=== PATIENT | female | born 2000 | race Caucasian/White ===

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

== ENCOUNTER 2023-10-03 19:57 | Emergency (ER) | payer OTHER, SELFPAY ==
--- NOTE | ~2023-10-03 | CT_ITS ---
EXAMINATION: CT head/brain wo IV con CLINICAL INFORMATION: Reason for Exam headache COMPARISON: None. TECHNIQUE: Contiguous axial imaging was performed from the skull base to vertex without intravenous contrast. Sagittal and coronal reformatted images were obtained. This CT examination was performed using dose optimization techniques as appropriate, variously including the following: * Automated exposure control * Adjustment of mA and/or kV according to patient size (this includes techniques or standardized protocols for targeted exams where dose is matched to indication/reason for exam; i.e. extremities or head) Use of iterative reconstruction technique DLP: 621.49 mGy-cm FINDINGS: No acute osseous or soft tissue abnormality. The mastoid air cells and visualized portions of the paranasal sinuses are well aerated. There is no evidence of acute intracranial hemorrhage or territorial infarction. No abnormal mass effect or midline shift is seen. Wiseman to white matter differentiation is well preserved. No extra-axial fluid collections are identified. No hydrocephalus. No significant volume loss. There is no abnormal attenuation within the brain parenchyma. CT/CT head/brain wo IV con IMPRESSION: No acute intracranial abnormality including hemorrhage, mass effect, hydrocephalus, or acute territorial edematous infarction.
--- NOTE | 2023-10-03 20:03 | ED_ITS ---
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 Patient reports over the past 5 days she has been having intermittent nosebleeds, it started while on vacation she stated an air B and B with very dry atmosphere, cold air conditioning, she does not remember picking her nose. Nosebleeds typically last a few minutes and subsided but today lasted longer which prompted her to come into the emergency department. Denies head trauma. No known bleeding disorders no history of miscarriages. No fevers, chills, chest pain, shortness of breath, nausea, vomiting, abdominal pain, headache, vision changes, dizziness or weakness. Related Data Allergies Allergy/AdvReac Type Severity Reaction Status Date / Time gluten [GLUTEN] Allergy Unknown UNKNOWN Unverified 11/22/19 17:53 morphine Allergy Unknown Hives Verified 10/03/23 20:13 sulfamethoxazole Allergy Unknown Hives Unverified 10/03/23 20:13 [From BACTRIM] trimethoprim [From BACTRIM] Allergy Unknown Hives Unverified 10/03/23 20:13 Review of Systems 2 Review of Systems: Yes all other systems are reviewed and are negative [facility] Past Medical History Attestation statement: The following information was validated with the patient. Source: old records reviewed and nursing notes reviewed Social History Social History Advance Directives: No Advance Directives Information Provided: No Physical Exam ED Vital Signs: Vital Signs - 24 hr 10/03/23 20:10 10/03/23 20:12 10/03/23 23:03 Temperature 98.1 F 98.1 F 97.9 F Pulse Rate 97 97 94 Respiratory Rate 17 18 16 Blood Pressure 113/74 113/68 104/50 L Pulse Oximetry 97 96 98 Oxygen Delivery Method Room Air Room Air Room Air BMI result Body Mass Index 41.2 vss Appearance: Alert.? Oriented X3.? No acute distress.? Head: Normocephalic, atraumatic, no step-offs or deformities + old left sided facial droop. Able to wrikle forehead. Fully closese b/l eyes w/ blinking ( all old) Eyes/nose: Pupils equal, round and reactive to light.?Dried blood to left nares no active bleeding Neck: Normal inspection.? Neck supple.? CVS: Normal heart rate and rhythm.? Pulses normal.? Respiratory: No respiratory distress.? Breath sounds normal.? Abdomen: Soft and nontender.? Skin: Skin warm and dry.? Normal skin color.? Normal skin turgor.? Extremities: No lower extremity edema.? No calf ttp. 5/5 strength to bilateral upper and lower extremities Back: No midline tenderness, no C-spine tenderness, full range of motion, no CVA tenderness bilaterally Neuro: Oriented X 3.? No motor deficit.? No sensory deficit. CN 2-12 intact Course Reevaluation(s) Reevaluation #1: CBC with slight leukocytosis no left shift, this is likely nonspecific unlikely from infection. Chemistry no acute findings needing intervention. Coags unremarkable. As long as patient's nosebleed does not start up again, patient to be discharged home will give her follow-up for ears Nose and Throat. Time: 20:40 Reevaluation #2: Educated patient on diagnosis and treatment plan, answered all question, patient verbalizes understanding. At this time patient will be discharged home, advised to return with new or worsening symptoms. Educated on worrisome signs and symptoms and when to return. At this time I feel comfortable discharge home. Time: 20:40 Reevaluation #3: Patient reported a diffuse headache during her stay felt different NIHSS -0 patient has left facial droop from bells however head ct ordered to air on side of caution --> normal head CT Time: 23:17 Medications Administered Discontinued Medications Generic Name Dose Route Start Last Admin Trade Name Freq PRN Reason Stop Dose Admin Acetaminophen 650 mg 10/03/23 21:41 10/03/23 21:46 Acetaminophen 325 Mg Tablet PO 10/03/23 21:42 650 mg ONCE ONE Administration Oxymetazoline HCl 2 spray 10/03/23 20:02 10/03/23 20:33 Oxymetazoline Hcl 0.05 % Nasal 15 Ml [place] NOSTRIL-B 10/03/23 20:03 2 spray ONCE ONE Administration Medical Decision Making Medical Decision Making MDM Narrative: 2002 23 yo f presents w/ nose bleed ongoing for the past hour PE - Normocephalic, atraumatic, no step-offs or deformities + old left sided facial droop. Able to wrikle forehead. Fully closese b/l eyes w/ blinking ( all old) . Dried blood to left nares no active bleeding NIHSS-0 Hx and pe concerning for nose bleed likely from mechanical trauma or weather changes. No hx of bleeding disorder. Low suspicions for acute blood loss anemia. Left-sided facial droop from old Conrad's palsy it has been present since 2021. I do not suspect acute stroke or posterior stroke. Plan- labs , Afrin Differential Diagnosis Differential Diagnoses: The differential diagnosis associated with the presentation includes Hx and pe concerning for nose bleed likely from mechanical trauma or weather changes. No hx of bleeding disorder. Low suspicions for acute blood loss anemia. Left-sided facial droop from old Conrad's palsy it has been present since 2021. I do not suspect acute stroke or posterior stroke. Admission/Observation Consideration of admission/observation: Escalation of care including admission/observation considered possible Lab Data [facility] Lab Attestation statement: I reviewed the patient's lab results. 10/03/23 20:14 10/03/23 20:14 Labs: Lab Results 10/03/23 Range/Units 20:14 WBC 12.9 H (4.8-10.8) X10*3/uL RBC 4.94 (4.20-5.50) X10*6/uL Hgb 11.7 L (12.0-16.0) g/dl Hct 37.0 (37.0-47.0) % MCV 74.9 L (80.0-98.0) fL MCH 23.7 L (27.0-33.0) pg MCHC 31.6 (31.0-35.0) g/dl RDW 16.8 H (11.0-16.0) % Plt Count 396 (160-400) X10*3/uL MPV 8.8 L (9.4-12.3) fL Immature Gran % (Auto) 0.5 H (0.0-0.4) % Neut % (Auto) 51.6 (45-73) % Lymph % (Auto) 39.0 (20-40) % [place] % (Auto) 6.0 (2-11) % Eos % (Auto) 2.6 (0-4) % Baso % (Auto) 0.3 (0-2) % Lymph # (Auto) 5.0 H (1.2-4.9) X10*3/uL [place] # (Auto) 0.8 (0.1-1.2) X10*3/uL Eos # (Auto) 0.3 (0.0-0.4) X10*3/uL Baso # (Auto) 0.0 (0.0-0.2) X10*3/uL Abs Immat Gran (auto) 0.07 H (0.00-0.03) X10*3/uL Absolute Neuts (auto) 6.7 (2.0-8.3) x10*3/uL Absolute Nucleated RBC 0.000 (0.0-0.012) X10*3/uL Nucleated RBC % (auto) 0.0 (0.0-0.2) /100WBC Smear Tech's Comments VERIFIED PT 11.4 (11.1-13.3) SEC INR 0.9 (0.9-1.1) Sodium 140 (135-145) mmol/L Potassium 4.2 (3.3-5.1) mmol/L Chloride 107 (96-108) mmol/L Carbon Dioxide 27 (22-29) mmol/L Anion Gap 10 L (12-20) BUN 16 (9-16) mg/dL Creatinine 0.85 (0.5-1.4) mg/dL Estim Creat Clear Calc 111.8 Estimated GFR > 60 Random Glucose 171 H (60-115) mg/dL Calcium 9.6 (8.4-10.2) mg/dL Total Bilirubin 0.2 (0.0-1.0) mg/dL AST 10 (5-31) U/L ALT 17 (0-31) U/L Alkaline Phosphatase 114 (39-117) U/L Total Protein 7.3 (6.5-8.0) g/dL Albumin 3.9 (3.5-5.0) g/dL Tests considered The following testing was considered but not selected: NIHSS-0 Chronic Conditions Patient?s care impacted by: Other (DM, hypothyroidism, obesity, ) Critical Care Time Critical Care Time Critical Care Time: No Discharge Plan Discharge Clinical Impression: Bleeding nose Patient Disposition: Home, Self-Care Instructions: Nosebleed (ED) Additional Instructions: Take your medications as prescribed. If you were prescribed antibiotics today, it is important that you take your medication to their entirety, do not skip any doses, do not finish them early. Follow-up with your primary care provider this week. Return to the emergency department with new or worsening symptoms. Such as fevers, chills, chest pain, shortness of breath, nausea, vomiting, dizziness, headache, vision changes, lethargy In case of emergency call 911 Use Afrin as indicated. Return if your nosebleed starts up again and you can not control it within 5 minutes. Referrals: Ernesto Anthony [Physician] - 2 days Physician,Roni Silvestre [Physician] - 2 days Stand Alone Forms: Work/School Release Interventions: ED Discharge Assessment Last Done: 10/03/23 23:03 Discharge Date/Time: 10/03/23 23:04 Print Language: Frisian
[2023-10-03 20:04] VITALS: BP 126/72; PULSE 110; O2SAT 98
[2023-10-03 20:10] VITALS: BP 113/74; PULSE 97; RESP 17; TEMP 36.7; O2SAT 97
[2023-10-03 20:12] VITALS: BP 113/68; PULSE 97; RESP 18; TEMP 36.7; O2SAT 96; BMI 41.2
[2023-10-03 20:21] LABS: Basophils Percent Auto 0.3 % (0-2); Eosinophils Absolute Auto 0.3 X10*3/uL (0.0-0.4); Eosinophils Percent Auto 2.6 % (0-4); Hemoglobin 11.7 g/dl (12.0-16.0); Imm Gran Abs Auto 0.07 X10*3/uL (0.00-0.03); Imm Gran Pct Auto 0.5 % (0.0-0.4); MANUAL DIFF FLAG SCAN; Mean Corpuscular HGB Conc 31.6 g/dl (31.0-35.0); Mean Corpuscular Hemoglobin 23.7 pg (27.0-33.0); Mean Corpuscular Volume 74.9 fL (80.0-98.0); Mean Platelet Volume 8.8 fL (9.4-12.3); Monocytes Absolute Auto 0.8 X10*3/uL (0.1-1.2); Neutrophils Absolute Auto 6.7 x10*3/uL (2.0-8.3); Neutrophils Percent Auto 51.6 % (45-73); Platelet Count 396 X10*3/uL (160-400); Red Blood Count 4.94 X10*6/uL (4.20-5.50); Red Cell Distribution Width 16.8 % (11.0-16.0); SCAN SMEAR FLAG 1; White Blood Count 12.9 X10*3/uL (4.8-10.8)
[2023-10-03 20:30] LABS: INTERNATIONAL NORM RATIO 0.9 (0.9-1.1); Prothrombin Time 11.4 SEC (11.1-13.3)
[2023-10-03] MEDS: Oxymetazoline HCl 0.05 % Nasal 15 ML SPRAY 2 SPRAY NOSTRIL-B (20:33)
[2023-10-03 20:37] LABS: Alanine Aminotransferase 17 U/L (0-31); Albumin Level 3.9 g/dL (3.5-5.0); Alkaline Phosphatase 114 U/L (39-117); Anion Gap 10 (12-20); Aspartate Amino Transferase 10 U/L (5-31); Bilirubin Total 0.2 mg/dL (0.0-1.0); Blood Urea Nitrogen 16 mg/dL (9-16); Calcium 9.6 mg/dL (8.4-10.2); Carbon Dioxide 27 mmol/L (22-29); Chloride 107 mmol/L (96-108); Creatinine Clr Calc Pharmacy 111.8; Estimated Glomerular Filt Rate > 60; Glucose Random 171 mg/dL (60-115); Potassium 4.2 mmol/L (3.3-5.1); Sodium 140 mmol/L (135-145); Total Protein 7.3 g/dL (6.5-8.0)
[2023-10-03 21:07] LABS: SLIDE REVIEW VERIFIED
[2023-10-03] MEDS: Acetaminophen 325 MG TABLET 650 MG PO (21:46)
[2023-10-03 23:03] VITALS: BP 104/50; PULSE 94; RESP 16; TEMP 36.6; O2SAT 98
== END 2023-10-03 23:04 | disposition home or self-care (01) ==
PROVIDERS: Physician Assistant; Emergency Provider Emergency Medicine; PCP Internal Medicine
DX: R04.0 Epistaxis (principal); R51.9 Headache, unspecified; E10.9 Type 1 diabetes mellitus without complications; Z79.899 Other long term (current) drug therapy
CPT/HCPCS: 36415; 70450; 80053; 85025; 85610; 99284

== ENCOUNTER 2024-05-08 16:13 | Emergency (ER) | payer OTHER, SELFPAY ==
[2024-05-08 16:32] VITALS: BP 119/92; PULSE 115; RESP 18; TEMP 36.9; O2SAT 99; BMI 37.9
--- NOTE | 2024-05-08 16:32 | ED_ITS ---
HPI - General Adult General Chief complaint: General Medical Stated complaint: rt ear hearing loss and dizziness Related Data Allergies Allergy/AdvReac Type Severity Reaction Status Date / Time gluten [GLUTEN] Allergy Unknown UNKNOWN Verified 05/08/24 16:33 morphine Allergy Unknown Hives Verified 05/08/24 16:33 sulfamethoxazole Allergy Unknown Hives Verified 05/08/24 16:33 [From BACTRIM] trimethoprim [From BACTRIM] Allergy Unknown Hives Verified 05/08/24 16:33 [facility] Social History Social History Advance Directives: No Advance Directives Information Provided: No Physical Exam ED Vital Signs: BMI result Body Mass Index 37.9 Course Course Course Narrative: This is an RME: Additional HPI, ROS, PE not included below will be deferred to primary provider. RME assessment and note performed by: Huma Rodrigues PA-C This is a [age]-female who presents to the ER with complaint of right ear decreased hearing, dizziness. Reports she has had dizziness x 2 months - had ENT appt was told that there is something unusual in regards to her right ear and hearing therefore an MRI was performed last week unsure of results. Reports CP now. She is well-appearing under no acute distress. Plan: Labs, EKG Reevaluation(s) Reevaluation #1: Patient left without completing treatment. Medical Decision Making Lab Data 05/08/24 16:58 05/08/24 16:58 Labs: Lab Results 05/08/24 Range/Units 16:58 WBC 15.1 H (4.8-10.8) X10*3/uL RBC 5.36 (4.20-5.50) X10*6/uL Hgb 12.6 (12.0-16.0) g/dl Hct 40.1 (37.0-47.0) % MCV 74.8 L (80.0-98.0) fL MCH 23.5 L (27.0-33.0) pg MCHC 31.4 (31.0-35.0) g/dl RDW 16.9 H (11.0-16.0) % Plt Count 482 H (160-400) X10*3/uL MPV 8.8 L (9.4-12.3) fL Immature Gran % (Auto) 0.5 H (0.0-0.4) % Neut % (Auto) 60.1 (45-73) % Lymph % (Auto) 33.3 (20-40) % [place] % (Auto) 4.5 (2-11) % Eos % (Auto) 1.3 (0-4) % Baso % (Auto) 0.3 (0-2) % Lymph # (Auto) 5.0 H (1.2-4.9) X10*3/uL [place] # (Auto) 0.7 (0.1-1.2) X10*3/uL Eos # (Auto) 0.2 (0.0-0.4) X10*3/uL Baso # (Auto) 0.0 (0.0-0.2) X10*3/uL Abs Immat Gran (auto) 0.07 H (0.00-0.03) X10*3/uL Absolute Neuts (auto) 9.1 H (2.0-8.3) x10*3/uL Absolute Nucleated RBC 0.000 (0.0-0.012) X10*3/uL Nucleated RBC % (auto) 0.0 (0.0-0.2) /100WBC Smear Tech's Comments VERIFIED Sodium 141 (135-145) mmol/L Potassium 3.9 (3.3-5.1) mmol/L Chloride 107 (96-108) mmol/L Carbon Dioxide 27 (22-29) mmol/L Anion Gap 11 L (12-20) BUN 13 (9-16) mg/dL Creatinine 0.75 (0.5-1.4) mg/dL Estim Creat Clear Calc 135.4 Estimated GFR > 60 Random Glucose 118 H (60-115) mg/dL Calcium 10.2 D (8.4-10.2) mg/dL Magnesium 2.0 (1.6-2.6) mg/dL Total Bilirubin 0.4 (0.0-1.0) mg/dL Direct Bilirubin 0.1 (0.0-0.5) mg/dL AST 15 (5-31) U/L ALT 22 (0-31) U/L Alkaline Phosphatase 135 H (39-117) U/L Troponin I High Sens < 2.7 (<3.5-17.0) ng/L Total Protein 8.5 H (6.5-8.0) g/dL Albumin 4.1 (3.5-5.0) g/dL Beta HCG, Quant < 2 mIU/mL Influenza Type A (PCR) NEGATIVE (Negative) Influenza Type B (PCR) NEGATIVE (Negative) RSV RNA Qual (PCR) NEGATIVE (Negative) SARS-CoV-2 RNA (RT-PCR) NEGATIVE (Negative) Discharge Plan Discharge Clinical Impression: Dizziness Patient Disposition: Left W/O Completing Treatment Interventions: LWBS Worksheet Last Done: 05/09/24 01:19 Discharge Date/Time: 05/09/24 02:07
--- NOTE | 2024-05-08 16:36 | ECG_ITS ---
Test Reason : dizziness Blood Pressure : */* mmHG Vent. Rate : 109 BPM Atrial Rate : 109 BPM P-R Int : 132 ms QRS Dur : 74 ms QT Int : 292 ms P-R-T Axes : 35 26 21 degrees QTcB Int : 393 ms Sinus tachycardia Otherwise normal ECG No previous ECGs available Referred By: Huma Rodrigues Electronically Signed By: KIM YANCEY MD
[2024-05-08 17:09] LABS: Basophils Percent Auto 0.3 % (0-2); Eosinophils Absolute Auto 0.2 X10*3/uL (0.0-0.4); Eosinophils Percent Auto 1.3 % (0-4); Hematocrit 40.1 % (37.0-47.0); Hemoglobin 12.6 g/dl (12.0-16.0); Imm Gran Abs Auto 0.07 X10*3/uL (0.00-0.03); Imm Gran Pct Auto 0.5 % (0.0-0.4); Lymphocytes Percent Auto 33.3 % (20-40); MANUAL DIFF FLAG SCAN; Mean Corpuscular HGB Conc 31.4 g/dl (31.0-35.0); Mean Corpuscular Hemoglobin 23.5 pg (27.0-33.0); Mean Corpuscular Volume 74.8 fL (80.0-98.0); Mean Platelet Volume 8.8 fL (9.4-12.3); Monocytes Absolute Auto 0.7 X10*3/uL (0.1-1.2); Monocytes Percent Auto 4.5 % (2-11); Neutrophils Absolute Auto 9.1 x10*3/uL (2.0-8.3); Neutrophils Percent Auto 60.1 % (45-73); Platelet Count 482 X10*3/uL (160-400); Red Blood Count 5.36 X10*6/uL (4.20-5.50); Red Cell Distribution Width 16.9 % (11.0-16.0); SCAN SMEAR FLAG 1; White Blood Count 15.1 X10*3/uL (4.8-10.8)
[2024-05-08 17:24] LABS: Troponin-I High Sensitivity < 2.7 ng/L (<3.5-17.0)
[2024-05-08 17:32] LABS: Alanine Aminotransferase 22 U/L (0-31); Albumin Level 4.1 g/dL (3.5-5.0); Anion Gap 11 (12-20); Aspartate Amino Transferase 15 U/L (5-31); Bilirubin Direct 0.1 mg/dL (0.0-0.5); Bilirubin Total 0.4 mg/dL (0.0-1.0); Blood Urea Nitrogen 13 mg/dL (9-16); Calcium 10.2 mg/dL (8.4-10.2); Carbon Dioxide 27 mmol/L (22-29); Chloride 107 mmol/L (96-108); Creatinine Clr Calc Pharmacy 135.4; Estimated Glomerular Filt Rate > 60; Glucose Random 118 mg/dL (60-115); HCG Quantitative < 2 mIU/mL; Potassium 3.9 mmol/L (3.3-5.1); SLIDE REVIEW VERIFIED; Sodium 141 mmol/L (135-145); Total Protein 8.5 g/dL (6.5-8.0)
[2024-05-08 17:43] LABS: Alkaline Phosphatase 135 U/L (39-117); Influenza A PCR NEGATIVE (Negative); Influenza B PCR NEGATIVE (Negative); Resp Syncy Virus RNA Qual PCR NEGATIVE (Negative); SARS COV2 PCR INHOUSE NEGATIVE (Negative)
--- OUTSIDE RECORDS SUMMARY | 2024-05-09 02:03 | XMS_ITS | Encounter Summary ---
Author Organization [facility] Address [address] [place] [address] Care Team Providers Care Steam Pipe Fitter Name Role Phone Julianne Tsang MD Primary Care Provider UnavailDenisse Elmore MD Primary Care Provider Unavailab Chantelle Fuentes MD Primary Care Provider Unavaila Palma Ruiz MD Primary Care Provider Chantelle Marin MD Primary Care Provider Unavaila Betty Gutierrez DO Primary Care Provider Ibrahima Woo MD Primary Care Provider [phone] Naima Bearden MD Primary Care Prov ider [facility] Endocrine And Diabetes Unavailab le Unavailable Encounter Details Date Type Department Care Team Description 08/10/2016 Finishing Powder Press Operator Report Medical Records [address] [place] [address] Rina Villagomez MD Social History Tobacco Use Types Packs/Day Years Used Date Smoking Tobacco: Never Smokeless Tobacco: Never Alcohol Use Standard Drinks/Week Comments Not Asked 0 (1 standard drink = 0.6 oz pur e alcohol) Sex Assigned at Date Recorded Not on file Job Start Date Occupation Industry Not on file Not on file Not on file documented as of this encounter Plan of Treatment Not on file documented as of this encounter Visit Diagnoses Not on filedocumented in this encounter Care Teams Steam Pipe Fitter Relationship Specialty Start Date End Date Julianne Tsang MD PCP - General 01 09/25/17 Denisse Ga MD PCP - General Pediatrics 09/26/17 11/18/19 Chantelle Ayala MD PCP - General Pediatrics 11/19/19 01/04/21 Palma Zamudio MD PCP - General Internal Medicine 01/05/21 01/12/21 Chantelle Ayala MD PCP - General Pediatrics 01/13/21 03/22/21 Betty Alejandro DO PCP - General Pediatrics 03/23/21 08/20/21 Ibrahima Hill MD [address] [place] [id number] PCP - General Pediatrics 08/21/21 10/20/21 Naima Bearden MD [address] [place] [id number] PCP - General Internal Medicine 10/21/21 [facility] Endocrine And Entry Level Automotive Technician Pediatric Endocrinology 05/04/22 documented as of this encounter
--- OUTSIDE RECORDS SUMMARY | 2024-05-09 02:04 | XMS_ITS | Encounter Summary ---
Author Organization [facility] Address [address] [facility] [place] [facility] [place] [address] Care Team Providers Care Hospice Patient Care Secretary Name Role Phone Chantelle Ayala MD Primary Care Provider UnavailPalma Perez MD Primary Care Provider Chantelle Marin MD Primary Care Provider Unavaila Betty Gutierrez DO Primary Care Provider UnaIbrahima Thompson MD Primary Care Provider [phone] Naima Bearden MD Primary Care Prov ider [facility] Endocrine And Diabetes Unavailab le Unavailable Encounter Details Date Type Department Care Team Description 01/24/2020 Repairer Report Medical Records [address] [place] [address] Zane Story Social History Tobacco Use Types Packs/Day Years Used Date Smoking Tobacco: Never Smokeless Tobacco: Never Alcohol Use Standard Drinks/Week Comments Not Asked 0 (1 standard drink = 0.6 oz pur e alcohol) Sex Assigned at Date Recorded Not on file Job Start Date Occupation Industry Not on file Not on file Not on file COVID-19 Exposure Response Date Recorded In the last month, have you been in contact with someone who was confirmed or suspected to have Coronavirus / COVID-19? No / Unsure 01/22/2020 12:56 PM EST documented as of this encounter Plan of Treatment Not on file documented as of this encounter Visit Diagnoses Not on filedocumented in this encounter Care Teams Hospice Patient Care Secretary Relationship Specialty Start Date End Date Chantelle Ayala MD PCP - General Pediatrics 11/19/19 01/04/21 Palma Zamudio MD PCP - General Internal Medicine 01/05/21 01/12/21 Chantelle Ayala MD PCP - General Pediatrics 01/13/21 03/22/21 Betty Alejandro DO PCP - General Pediatrics 03/23/21 08/20/21 Ibrahima Hill MD [address] [place] [id number] PCP - General Pediatrics 08/21/21 10/20/21 Naima Bearden MD [address] [place] [id number] PCP - General Internal Medicine 10/21/21 [facility] Endocrine And Special Education Director Pediatric Endocrinology 05/04/22 documented as of this encounter
--- OUTSIDE RECORDS SUMMARY | 2024-05-09 02:04 | XMS_ITS | Encounter Summary ---
Author Organization [facility] Address [address] [facility] [place] [address] Care Team Providers Care Parcel Post Carrier Name Role Phone Denisse Ga MD Primary Care Provider UnavailChantelle Bautista MD Primary Care Provider UnavailPalma Perez MD Primary Care Provider Chantelle Marin MD Primary Care Provider Unavaila Betty Gutierrez DO Primary Care Provider Ibrahima oWo MD Primary Care Provider Naima Bearden MD Primary Care Prov ider [facility] Endocrine And Diabetes Unavailab le Unavailable Encounter Details Date Type Department Care Team Description 10/12/2017 Tubing Machine Tender Report Medical Records [address] [place] [address] Rina Villagomez MD Social History Tobacco Use [...] on filedocumented in this encounter Care Teams Parcel Post Carrier Relationship Specialty Start Date End Date Denisse Ga MD PCP - General Pediatrics 09/26/17 11/18/19 Chantelle Ayala MD PCP - General Pediatrics 11/19/19 01/04/21 Palma Zamudio MD PCP - General Internal Medicine 01/05/21 01/12/21 Chantelle Ayala MD PCP - General Pediatrics 01/13/21 03/22/21 Betty Alejandro DO PCP - General Pediatrics 03/23/21 08/20/21 Ibrahima Hill MD [address] [place] [id number] PCP - General Pediatrics 08/21/21 10/20/21 Naima Bearden MD [address] [place] [id number] PCP - General Internal Medicine 10/21/21 [facility] Endocrine And Spray Painter Helper Pediatric Endocrinology 05/04/22 documented as of this encounter
--- OUTSIDE RECORDS SUMMARY | 2024-05-09 02:04 | XMS_ITS | Encounter Summary ---
Author Organization [facility] Address [address] [facility] [place] [address] Care Team Providers Care Western Tack Assembly Line Worker Name Role Phone Denisse Ga MD Primary Care Provider UnavailChantelle Bautista MD Primary Care Provider UnavailPalma Perez MD Primary Care Provider Chantelle Marin MD Primary Care Provider Unavaila Betty Gutierrez DO Primary Care Provider Ibrahima Woo MD Primary Care Provider [phone] Naima Bearden MD Primary Care Prov ider [facility] Endocrine And Diabetes Unavailab le Unavailable Encounter Details Date Type Department Care Team Description 12/20/2017 Medical Insurance Coding Specialist Report Medical Records [address] [place] [address] Ceasar Singh MD Social History Tobacco Use Types Packs/Day [...] on filedocumented in this encounter Care Teams Western Tack Assembly Line Worker Relationship Specialty Start Date End Date Denisse Ga MD PCP - General Pediatrics 09/26/17 11/18/19 Chantelle Ayala MD PCP - General Pediatrics 11/19/19 01/04/21 Palma Zamudio MD PCP - General Internal Medicine 01/05/21 01/12/21 Chantelle Ayala MD PCP - General Pediatrics 01/13/21 03/22/21 Betty Alejandro DO PCP - General Pediatrics 03/23/21 08/20/21 Ibrahima Hill MD [address] [place] [id number] PCP - General Pediatrics 08/21/21 10/20/21 Naima Bearden MD [address] [place] [id number] PCP - General Internal Medicine 10/21/21 [facility] Endocrine And Boss Dyer Pediatric Endocrinology 05/04/22 documented as of this encounter
--- OUTSIDE RECORDS SUMMARY | 2024-05-09 02:04 | XMS_ITS | Encounter Summary ---
Author Organization [facility] Address [address] [place] [address] Care Team Providers Care Novelty Candy Maker Name Role Phone Julianne Tsang MD Primary Care Provider UnavailDenisse Elmore MD Primary Care Provider UnavailChantelle Bautista MD Primary Care Provider Unavaila Palma Ruiz MD Primary Care Provider Chantelle Mrain MD Primary Care Provider Unavaila Betty Gutierrez DO Primary Care Provider Ibrahima Woo MD Primary Care Provider [phone] Naima Bearden MD Primary Care Prov ider [facility] Endocrine And Diabetes Unavailab le Unavailable Encounter Details Date Type Department Care Team Description 12/07/2013 Superintendent Recreation Report Medical Records [address] [place] [address] Francy Harris Social History Tobacco Use Types Packs/Day Years [...] on filedocumented in this encounter Care Teams Novelty Candy Maker Relationship Specialty Start Date End Date Julianne Tsang MD PCP - General 01 09/25/17 Denisse Ga MD PCP - General Pediatrics 09/26/17 11/18/19 Chantelle Ayala MD PCP - General Pediatrics 11/19/19 01/04/21 Palma Zamudio MD PCP - General Internal Medicine 01/05/21 01/12/21 Chantelle Ayala MD PCP - General Pediatrics 01/13/21 03/22/21 Betty Alejandro DO PCP - General Pediatrics 03/23/21 08/20/21 Ibrahima Hill MD [address] [place] [id number] PCP - General Pediatrics 08/21/21 10/20/21 Naima Bearden MD [address] [place] [id number] PCP - General Internal Medicine 10/21/21 [facility] Endocrine And Clothing Trades Workers Pediatric Endocrinology 05/04/22 documented as of this encounter
--- OUTSIDE RECORDS SUMMARY | 2024-05-09 02:04 | XMS_ITS | Encounter Summary ---
Author Organization [facility] Address [address] [place] [address] Care Team Providers Care Filing Or Registry Clerk Name Role Phone Julianne Tsang MD Primary Care Provider UnavailDenisse Elmore MD Primary Care Provider Unavailab Chantelle Fuentes MD Primary Care Provider Unavaila Palma Ruiz MD Primary Care Provider Chantelle Marin MD Primary Care Provider Unavaila Betty Gutierrez DO Primary Care Provider Ibrahima Woo MD Primary Care Provider [phone] Naima Bearden MD Primary Care Prov ider [facility] Endocrine And Diabetes Unavailab le Unavailable Encounter Details Date Type Department Care Team Description 02/26/2016 Permanent Waver Report Medical Records [address] [place] [id number] Pushpa Byrd DO Social History Tobacco Use Types Packs/Day Years [...] on filedocumented in this encounter Care Teams Filing Or Registry Clerk Relationship Specialty Start Date End Date Julianne Tsang MD PCP - General 01 09/25/17 Denisse Ga MD PCP - General Pediatrics 09/26/17 11/18/19 Chantelle Ayala MD PCP - General Pediatrics 11/19/19 01/04/21 Palma Zamudio MD PCP - General Internal Medicine 01/05/21 01/12/21 Chantelle Ayala MD PCP - General Pediatrics 01/13/21 03/22/21 Betty Alejandro DO PCP - General Pediatrics 03/23/21 08/20/21 Ibrahima Hill MD [address] [place] [phone] PCP - General Pediatrics 08/21/21 10/20/21 Naima Bearden MD [address] [place] [phone] PCP - General Internal Medicine 10/21/21 [facility] Endocrine And Executive Coach Pediatric Endocrinology 05/04/22 documented as of this encounter
--- OUTSIDE RECORDS SUMMARY | 2024-05-09 02:04 | XMS_ITS | Encounter Summary ---
Author Organization [facility] Address [address] [place] [address] Care Team Providers Care Food And Beverage Outlets Manager Name Role Phone Julianne Tsang MD Primary Care Provider UnavailDenisse Elmore MD Primary Care Provider UnavailChantelle Bautista MD Primary Care Provider Unavaila Palma Ruiz MD Primary Care Provider Chantelle Marin MD Primary Care Provider Unavaila Betty Gutierrez DO Primary Care Provider Ibrahima Woo MD Primary Care Provider [phone] Naima Bearden MD Primary Care Prov ider [facility] Endocrine And Diabetes Unavailab le Unavailable Encounter Details Date Type Department Care Team Description 04/03/2013 Push Bench Operator Helper Report Medical Records [address] [place] [address] [facility] Social History Tobacco Use Types Packs/Day Years [...] on filedocumented in this encounter Care Teams Food And Beverage Outlets Manager Relationship Specialty Start Date End Date Julianne Tsang MD PCP - General 01 09/25/17 Denisse Ga MD PCP - General Pediatrics 09/26/17 11/18/19 Chantelle Ayala MD PCP - General Pediatrics 11/19/19 01/04/21 Palma Zamudio MD PCP - General Internal Medicine 01/05/21 01/12/21 Chantelle Ayala MD PCP - General Pediatrics 01/13/21 03/22/21 Betty Alejandro DO PCP - General Pediatrics 03/23/21 08/20/21 Ibrahima Hill MD [address] [place] [phone] PCP - General Pediatrics 08/21/21 10/20/21 Naima Bearden MD [address] [place] [id number] PCP - General Internal Medicine 10/21/21 [facility] Endocrine And Tacking Stitch Remover Pediatric Endocrinology 05/04/22 documented as of this encounter
--- OUTSIDE RECORDS SUMMARY | 2024-05-09 02:04 | XMS_ITS | Encounter Summary ---
Author Organization [facility] Address [address] [place] [address] Care Team Providers Care Filteration Operator Name Role Phone Denisse Ga MD Primary Care Provider UnavailChantelle Bautista MD Primary Care Provider UnavailPalma Perez MD Primary Care Provider Chantelle Marin MD Primary Care Provider Unavaila Betty Gutierrez DO Primary Care Provider Ibrahima Woo MD Primary Care Provider [phone] Naima Bearden MD Primary Care Prov ider [facility] Endocrine And Diabetes Unavailab le Unavailable Encounter Details Date Type Department Care Team Description 10/10/2018 Orders Only Pediatrics - [facility] [address] [place] [address] Dora Miller RNCPNP Screening for cardiovascular condition (Primary Dx); 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, macular edema presence unspecified, unspecified retinopathy severity (HCC) Social History Tobacco Use Types Packs/Day Years [...] documented as of this encounter Visit Diagnoses Diagnosis Screening for cardiovascular condition- Primary Screening for other and unspecified cardiovascular conditions 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, macular edema presence unspecified, unspecified retinopathy severity (HCC) documented in this encounter Care Teams Filteration Operator Relationship Specialty Start Date End Date Denisse Ga MD PCP - General Pediatrics 09/26/17 11/18/19 Chantelle Ayala MD PCP - General Pediatrics 11/19/19 01/04/21 Palma Zamudio MD PCP - General Internal Medicine 01/05/21 01/12/21 Chantelle Ayala MD PCP - General Pediatrics 01/13/21 03/22/21 Betty Alejandro DO PCP - General Pediatrics 03/23/21 08/20/21 Ibrahima Hill MD [address] [place] [id number] PCP - General Pediatrics 08/21/21 10/20/21 Naima Bearden MD [address] [place] [phone] PCP - General Internal Medicine 10/21/21 [facility] Endocrine And Corporate Travel Manager Pediatric Endocrinology 05/04/22 documented as of this encounter
--- OUTSIDE RECORDS SUMMARY | 2024-05-09 02:04 | XMS_ITS | Encounter Summary ---
Author Organization [facility] Address [address] [place] [address] Care Team Providers Care Molecular Genetic Pathologist Name Role Phone Julianne Tsang MD Primary Care Provider UnavailDenisse Elmore MD Primary Care Provider UnavailChantelle Bautista MD Primary Care Provider Unavaila Palma Ruiz MD Primary Care Provider Chantelle Marin MD Primary Care Provider Unavaila Betty Gutierrez DO Primary Care Provider Ibrahima Woo MD Primary Care Provider [phone] Naima Bearden MD Primary Care Prov ider [facility] Endocrine And Diabetes Unavailab le Unavailable Encounter Details Date Type Department Care Team Description 03/09/2012 Cfa Report Medical Records [address] [place] [id number] Carole Valverde Social History Tobacco Use Types Packs/Day Years [...] on filedocumented in this encounter Care Teams Molecular Genetic Pathologist Relationship Specialty Start Date End Date Julianne Tsang MD PCP - General 01 09/25/17 Denisse Ga MD PCP - General Pediatrics 09/26/17 11/18/19 Chantelle Ayala MD PCP - General Pediatrics 11/19/19 01/04/21 Palma Zamudio MD PCP - General Internal Medicine 01/05/21 01/12/21 Chantelle Ayala MD PCP - General Pediatrics 01/13/21 03/22/21 Betty Alejandro DO PCP - General Pediatrics 03/23/21 08/20/21 Ibrahima Hill MD [address] [place] [phone] PCP - General Pediatrics 08/21/21 10/20/21 Naima Bearden MD [address] [place] [phone] PCP - General Internal Medicine 10/21/21 [facility] Endocrine And Pick Pulling Machine Tender Pediatric Endocrinology 05/04/22 documented as of this encounter
--- OUTSIDE RECORDS SUMMARY | 2024-05-09 02:04 | XMS_ITS | Encounter Summary ---
Author Organization [facility] Address [address] [place] [address] Care Team Providers Care Automotive Generator Repairer Name Role Phone Ibrahima Hill MD Primary Care Provider [phone] Naima Bearden MD Primary Care Prov ider [facility] Endocrine And Diabetes Unavailab le Unavailable Encounter Details Date Type Department Care Team Description 10/09/2021 Hospital Medical Records [address] [place] [address] [address] Social History Tobacco Use Types Packs/Day Years Used Date Smoking Tobacco: Never Smokeless Tobacco: Never Alcohol Use Standard Drinks/Week Comments Never 0 (1 standard drink = 0.6 oz pur e alcohol) Education Answer Date Recorded What is the highest level of school you have completed or the highest degree you have received? 11th grade 11/02/2023 Sex Assigned at Date Recorded Not on file Job Start Date Occupation Industry Not on file Not on file Not on file documented as of this encounter Plan of Treatment Not on file documented as of this encounter Visit Diagnoses Not on filedocumented in this encounter Care Teams Automotive Generator Repairer Relationship Specialty Start Date End Date Ibrahima Hill MD [address] [place] [phone] PCP - General Pediatrics 08/21/21 10/20/21 Naima Bearden MD [address] [place] [phone] PCP - General Internal Medicine 10/21/21 [facility] Endocrine And Irrigation Equipment Mechanic Pediatric Endocrinology 05/04/22 documented as of this encounter
--- OUTSIDE RECORDS SUMMARY | 2024-05-09 02:04 | XMS_ITS | Encounter Summary ---
Author Organization [facility] Address [address] [place] [address] Care Team Providers Care Auto Design Detailer Name Role Phone Julianne Tsang MD Primary Care Provider UnavailDenisse Elmore MD Primary Care Provider Unavailab Chantelle Fuenets MD Primary Care Provider Unavaila Palma Ruiz MD Primary Care Provider Chantelle Marin MD Primary Care Provider Unavaila Betty Gutierrez DO Primary Care Provider Ibrahima Woo MD Primary Care Provider [phone] Naima Bearden MD Primary Care Prov ider [facility] Endocrine And Diabetes Unavailab le Unavailable Reason for Visit * Reason Onset Date Comments Form 06/23/2012 Encounter Details Date Type Department Care Team Description 06/23/2012 Telephone [facility] - [address] [address] Dora Miller RNCPNP Form Social History Tobacco Use Types Packs/Day Years Used Date Smoking Tobacco: Never Smokeless Tobacco: Never Alcohol Use Standard Drinks/Week Comments Not Asked 0 (1 standard drink = 0.6 oz pur e alcohol) Sex Assigned at Date Recorded Not on file Job Start Date Occupation Industry Not on file Not on file Not on file documented as of this encounter Miscellaneous Notes * Telephone Encounter - Thalia Bansal R.N. - 06/23/2012 2:57 PM EDT Form to providers desk * Telephone Encounter - Tatiana Delatorre - 06/23/2012 2:41 PM EDT Pediatric Form Request Type of form: Power Fingerprinting Date of last physical: 04/20/12 Does patient want: Fax to other office/MD at fax # documented in this encounter Plan of Treatment Not on file documented as of this encounter Visit Diagnoses Not on filedocumented in this encounter Care Teams Auto Design Detailer Relationship Specialty Start Date End Date Julianne Tsang MD PCP - General 01 09/25/17 Denisse Ga MD PCP - General Pediatrics 09/26/17 11/18/19 Chantelle Ayala MD PCP - General Pediatrics 11/19/19 01/04/21 Palma Zamudio MD PCP - General Internal Medicine 01/05/21 01/12/21 Chantelle Ayala MD PCP - General Pediatrics 01/13/21 03/22/21 Betty Alejandro DO PCP - General Pediatrics 03/23/21 08/20/21 Ibrahima Hill MD [address] [place] [phone] PCP - General Pediatrics 08/21/21 10/20/21 Naima Bearden MD [address] [place] [id number] PCP - General Internal Medicine 10/21/21 [facility] Endocrine And Social Services Specialist Pediatric Endocrinology 05/04/22 documented as of this encounter
--- OUTSIDE RECORDS SUMMARY | 2024-05-09 02:04 | XMS_ITS | Encounter Summary ---
Author Organization [facility] Address [address] [facility] [place] [address] Care Team Providers Care Feed Research Technician Name Role Phone Denisse Ga MD Primary Care Provider UnavailChantelle Bautista MD Primary Care Provider UnavailPalma Perez MD Primary Care Provider Chantelle Marin MD Primary Care Provider Unavaila Betty Gutierrez DO Primary Care Provider Ibrahima Woo MD Primary Care Provider [phone] Naima Bearden MD Primary Care Prov ider [facility] Endocrine And Diabetes Unavailab le Unavailable Encounter Details Date Type Department Care Team Description 11/02/2018 Smoking Pipe Repairer Report Medical Records [address] [place] [address] [facility] Social History Tobacco Use Types Packs/Day Years [...] on filedocumented in this encounter Care Teams Feed Research Technician Relationship Specialty Start Date End Date Denisse Ga MD PCP - General Pediatrics 09/26/17 11/18/19 Chantelle Ayala MD PCP - General Pediatrics 11/19/19 01/04/21 Palma Zamudio MD PCP - General Internal Medicine 01/05/21 01/12/21 Chantelle Ayala MD PCP - General Pediatrics 01/13/21 03/22/21 Betty Alejandro DO PCP - General Pediatrics 03/23/21 08/20/21 Ibrahima Hill MD [address] [place] [phone] PCP - General Pediatrics 08/21/21 10/20/21 Naima Bearden MD [address] [place] [phone] PCP - General Internal Medicine 10/21/21 [facility] Endocrine And Ornamental Rail Installer Pediatric Endocrinology 05/04/22 documented as of this encounter
--- OUTSIDE RECORDS SUMMARY | 2024-05-09 02:04 | XMS_ITS | Continuity of Care Document ---
Author Organization [place] - [facility], [facility] Address [address] [place] [address] Care Team Providers Care Signal Supervisor Name Role Phone OVI SANTIZO Primary Care Provider OVI SANTIZO Referring Provider Assessment Encounter Date Assessment Date Assessment LastModified by Organization Details LastModified Time 04/24/2024 04/24/2024 23 year old femvy chavez with history of migraine presents for evaluation of hearing fluctuation and discomfort in the left ear. Also has non-vertiginous dizziness at times. Left tympanic membrane is retracted. Reviewed pathophysiology of Eustachian tube dysfunction on diagram and patient/parent understands. Recommend trial of intranasal steroid spray; risks, rationale, and crossed-hand application technique reviewed and all questions were answered. We discussed that the discomfort in the left ear may represent referred pain from the temporomandibular joint. Recommend avoidance of gum chewing. Jaw Joint Program provided in written format. We reviewed that the fluctuating hearing and intermittent imbalance may be migraine-related. Recommend trial of migraine diet; provided today for patient to read at home along with some other educational material about migraine headache and migraine-associated dizziness. Audiometric testing demonstrates normal hearing bilaterally but with a 10-15 dB asymmetry from 250 Hz - 2,000 Hz. Differential diagnosis reviewed to include acoustic neuroma versus other retrocochlear pathology versus viral origin. Recommend MRI of the brain and IACs, as well as Lyme disease titers. Will call patient with results. Recommend repeat audiometric testing in 3-6 months, sooner with perceived change that does not promptly return to baseline. [email or web address] Not available 04/24/2024 16:14:24 Plan of Treatment Reminders Order Date Submit Date Provider Last Modified By Organization Details Last Modified Time Details Appointments Hearing Test 2024 03:00P M Hearing Test Not available Not available Not available Establish ed 15 2024 03:30P M KEVIN LARES PA-C Not available Not available Not available Lab borrelia burgdorfe ri IgG + IgM + total panel, IA, serum 2024 025 ZANONI [facility] (Centralized Electronic Ordering - All Locations), Patient Can Go To The Location Of Their Choice, [id number] 04/25/2024 11:16:51 Referral None recorded. Procedures None recorded. Surgeries None recorded. Imaging MRI, brain + internal auditory canal, w/wo contrast - MRI, BRAIN + INTERNAL AUDITORY CANAL, W/WO CONTRAST 2024 025 [facility] ([facility] [address] [place], [address], 05/03/2024 14:31:10 Medication Orders Flonase Allergy Relief 50 mcg/actua tion nasal spray,rashaun pension 2024 025 ZANONI [id number], [address] [facility], [place], [address], 04/24/2024 14:35:45 Patient TargetsNo targets recorded. Patient InstructionsNo instructions recorded. Reason for Referral None Reported. Results Created Date Observation Date Name Description Value Unit Range Abnormal Flag Note LastModifiedBy Organization Detail LastModifiedTime 04/24/19 25 audio gram No observ ation record ed. BARCODE Not Available 2024 15:18:28 05/03/19 25 04/30/2024 MRI, brain + inter nal audit ory canal , w/wo contr ast No observ ation record ed. [facility] [address] [place], [address], 05/03/2024 14:31:10 Result Notes None recorded. Problems Name Problem SNOMED Code Status Onset Date Resolution Date Notes Provider Name and Address Organization Details Recorded Time Abnormal auditory perception 90916135 Active 2024 Aretha cordero [place] - [facility] 02/18/202 5 14:03:44 Disorder of left Eustachian tube 0873274345441 109 Active 2024 TOMMIE BRUCE PA-C [address] [address], [place], [phone], 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 - [facility] 5 15:34:01 Problem Notes None recorded. Procedures Surgical History Date Name Laterality Status Provider Name and Address Organization Details Recorded Time 04/24/2024 Comp Audio with Tymps (57154 & 79370) completed Aretha Tiwari [place] - [facility] 04/24/2024 14:03:30 Imaging Results None recorded. Procedure Notes None recorded. Medical Equipment None Reported. Medications Name Sig Start Date Stop Date Status Note LastModified by Organization Details LastModified Time atorvastatin 40 mg tablet active Not Available Not Available Not Available atorvastatin 80 mg tablet active Not Available Not Available Not Available atorvastatin 20 mg tablet active Not Available Not Available Not Available ammonium lactate 12 % lotion APPLY TOPICALLY 2 TIMES A DAY FOR 28 DAYS. active Not Available Not Available No t Available cetirizine 10 mg tablet TAKE 1 TABLET BY MOUTH 1 TIME EACH DAY. active Not Available Not Available No t Available atorvastatin 10 mg tablet TAKE 1 TABLET BY MOUTH EVERY DAY active Not Available Not Available No t Available miconazole nitrate 2 % topical cream APPLY 1 APPLICATION TOPICALLY 2 (TWO) TIMES A DAY FOR 14 DAYS. TO RIGHT ELBOW CREASE active Not Available Not Available No t Available FreeStyle Lancets 28 gauge CHECK BLOOD SUGAR 3-4 TIMES DAILY. active Not Available Not Available No t Available levothyroxin e 75 mcg tablet active Not Available Not Available Not Available levothyroxin e 88 mcg tablet active Not Available Not Available Not Available insulin aspart U-100 100 unit/mL subcutaneous solution active Not Available Not Available Not Available levothyroxin e 125 mcg tablet TAKE 1 & 1/2 TABLETS BY MOUTH ONCE DAILY active Not Available Not Available N ot Available insulin lispro (U-100) 100 unit/mL subcutaneous solution SUBCUTANEOU S INFUSION - MANAGEMENT OF TYPE 1 DIABETES. MAX DAILY DOSE 150 UNITS active Not Available Not Available No t Available ibuprofen 600 mg tablet TAKE 1 TABLET BY MOUTH THREE TIMES A DAY FOR 7 DAYS active Not Available Not Available N ot Available ondansetron 4 mg disintegrati ng tablet TAKE 1 TABLET (ORAL) EVERY 12 HOURS (NAUSEA AND VOMITING) FOR 5 DAYS active Not Available Not Available N ot Available fluticasone propionate 50 mcg/actuatio n nasal spray,suspen david SPRAY 2 SPRAYS INTO EACH NOSTRIL IN THE MORNING active Not Available Not Available Not Available Ketostix strips USE TWICE DAILY IF GLUCOSE IS >300 OR DURING ILLNESS active Not Available Not Available No t Available Ventolin HFA 90 mcg/actuatio n aerosol inhaler INHALE 2 PUFFS INTO THE LUNGS EVERY 6 HOURS NEEDED FOR COUGH OR WHEEZING. active Not Available Not Available No t Available oxycodone 5 mg tablet TAKE 1 TABLET BY MOUTH EVERY 4 HOURS NEEDED active Not Available Not Available No t Available Vitamin D3 25 mcg (1,000 unit) capsule active Not Available Not Available Not Available clobetasol 0.05 % shampoo PLEASE SEE ATTACHED FOR DETAILED DIRECTIONS active Not Available Not Available N ot Available FreeStyle Lite Strips IDDM- USE TO CHECK BLOOD SUGAR 3-4X A DAY WHEN PUMP IS NOT WORKING. active Not Available Not Available No t Available cholecalcife rol (vitamin D3) 1,250 mcg (50,000 unit) capsule active Not Available Not Available Not Available Lantus Solostar U-100 Insulin 100 unit/mL (3 mL) subcutaneous pen TAKE UP TO 60 UNITS ONCE DAILY IN THE EVENT OF INSULIN PUMP FAILURE. E10.65. active Not Available Not Available No t Available diclofenac 1 % topical gel TAKE 2 GRAMS (TOPICAL) 4 TIMES PER DAY FOR 10 DAYS active Not Available Not Available No t Available BD Insulin Syringe Ultra-Fine 0.3 mL 31 gauge x 5/16 USE TO GIVE INSULIN 4 TO 5 TIMES PER DAY. active Not Available Not Available No t Available Dexcom G6 Sensor device USE FOR CONTINUOUS GLUCOSE MONITORING. CHANGE EVERY 10 DAYS. E10.65 active Not Available Not Available No t Available Dexcom G6 Transmitter device USE FOR CONTINUOUS GLUCOSE MONITORING. E10.65. 1 PER 3 MONTHS. active Not Available Not Available No t Available BD Caro 2nd Gen Pen Needle 32 gauge x 5/32 USE DIRECTED FOR IDDM TO ADMINISTER INSULIN UPTO X6/DAY active Not Available Not Available Not Available Baqsimi 3 mg/actuation nasal spray 3 MG NARIS, RIGHT ONCE,INSTR: USE FOR SIGNS OF SEVERE HYPOGLYCEMI A IN IDDM MAY REPEAT IN 15 MINUTES active Not Available Not Available No t Available insulin glargine-yfg n (U-100) 100 unit/mL (3 mL) subcutaneous pen INJECT UP TO 60 UNITS ONCE DAILY IN THE EVENT OF INSULIN PUMP FAILURE. E10.65. active Not Available Not Available No t Available Vitals None Recorded Social History None recorded. Functional Status None recorded. Mental Status None recorded. Family History Nothing Reported. Medical History No medical history recorded. Gynecological HistoryNo gynecological history recorded. Obstetrics History GPAL:G 0 P 0 0 0 0 Past Encounters Encounter ID Performer Location Encounter Start Date Encounter Closed Date Diagnosis/Indication Diagnosis SNOMED-CT Code Diagnosis ICD10 Code Diagnosis Note [id number] TOMMIE BRUCE PA-C [facility] [address] [address] 04/24/2024 13:24:47 04/24/2024 14:40:06 Abnormal auditory perception 87717116 H93.299 Audiologic al evaluation results:Ri ght ear:{{Norm al* Normal through 2 kHz Mild M oderate Mo derately-s evere Neyda re Profoun d}} {{hearing* hearing. sloping to a mild slopi ng to a moderate s loping to moderately severe slo ping to severe slo ping to profound f lat high frequency low frequency mid frequency cookie bite conrad curve}} {{with* se nsorineura l hearing loss with condu ctive hearing loss with mixed hearing loss with}} {{excellen t* good fa ir poor no measurable }} word recognitio n.Left ear:{{Norm al* Normal through 2 kHz Mild M oderate Mo derately-s evere Neyda re Profoun d}} {{hearing* hearing. 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 Health Concerns Section Related Observation LastModified by Organization Detai ls LastModified Time None Recorded Concern Status LastModified by Organization Details LastModified Time None Recorded Payers Encounter Date Sequence Insurance Name Policy Number Policy Paulino Covered Member ID Paulino Member ID Guarantor Name 04/24/2024 1 [email or web address] [place] Maxx Mina [id number] Maxx Mina Notes Date Note Type Note Provider Name and Address Organization Details Recorded Time 04/24/2024 text/html 23 year old female presents for evaluation of the ears and hearing. Sometimes things sound distant or muffled. She has to ask people to repeat themselves. This is a problem that comes and goes; seems to affect both ears. Today the hearing feels normal. She reports heartbeat in the ear when her head is on the pillow but not otherwise, and no other tinnitus. 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 Feels like the eardrum hurts on that side. She denies bruxism and jaw clenching. She does chew a lot of gum. There is no otorrhea. She also reports some imbalance without vertigo. Occurs when she is already standing up. Occurs a couple of times per day. Persists for a few seconds. There is no associated syncope, confusion, slurred speech, vision change, loss of visual field, headache, chest pain, heart palpitations, nor extremity or facial weakness or paralysis. Endorses history of migraine headaches, quite infrequent. Photosensitivity, nausea, unilateral headache that persists for days. Does not present same day/time as imbalance or hearing fluctuations. TOMMIE KETCHEN, PA-C [address] [address], [place], [address], [place] - [facility] 04/24/2024 16:14:36 OBGyn Episode No OBEpisode recorded.
--- OUTSIDE RECORDS SUMMARY | 2024-05-09 02:04 | XMS_ITS | Encounter Summary ---
Author Organization [facility] Address [address] [place] [address] Care Team Providers Care Professor Criminal Justice Name Role Phone Julianne Tsang MD Primary Care Provider UnavailDenisse Elmore MD Primary Care Provider UnavailChantelle Bautista MD Primary Care Provider Unavaila Palma Ruiz MD Primary Care Provider Chantelle Marin MD Primary Care Provider Unavaila Betty Gutierrez DO Primary Care Provider Ibrahima Woo MD Primary Care Provider [phone] Naima Bearden MD Primary Care Prov ider [facility] Endocrine And Diabetes Unavailab le Unavailable Encounter Details Date Type Department Care Team Description 01/31/2012 Software Release Engineer Report Medical Records [address] [place] [address] Bharat Galdamez Social History Tobacco Use Types Packs/Day Years [...] on filedocumented in this encounter Care Teams Professor Criminal Justice Relationship Specialty Start Date End Date Julianne Tsang MD PCP - General 01 09/25/17 Denisse Ga MD PCP - General Pediatrics 09/26/17 11/18/19 Chantelle Ayala MD PCP - General Pediatrics 11/19/19 01/04/21 Palma Zamudio MD PCP - General Internal Medicine 01/05/21 01/12/21 Chantelle Ayala MD PCP - General Pediatrics 01/13/21 03/22/21 Betty Alejandro DO PCP - General Pediatrics 03/23/21 08/20/21 Ibrahima Hill MD [address] [place] [address] PCP - General Pediatrics 08/21/21 10/20/21 Naima Bearden MD [address] [place] [address] PCP - General Internal Medicine 10/21/21 [facility] Endocrine And Interventional Nurse Pediatric Endocrinology 05/04/22 documented as of this encounter
--- OUTSIDE RECORDS SUMMARY | 2024-05-09 02:04 | XMS_ITS | Encounter Summary ---
Author Organization [facility] Address [address] [place] [address] Care Team Providers Care Drying Frame Operator Name Role Phone Julianne Tsang MD Primary Care Provider UnavailDenisse Elmore MD Primary Care Provider UnavailChantelle Bautista MD Primary Care Provider Unavaila Palma Ruiz MD Primary Care Provider Chantelle Marin MD Primary Care Provider Unavaila Betty Gutierrez DO Primary Care Provider Ibrahima Woo MD Primary Care Provider [phone] Naima Bearden MD Primary Care Prov ider [facility] Endocrine And Diabetes Unavailab le Unavailable Encounter Details Date Type Department Care Team Description 07/10/2013 Outbound Supervisor Report Medical Records [address] [place] [address] Francy Harris Social History Tobacco Use Types [...] on filedocumented in this encounter Care Teams Drying Frame Operator Relationship Specialty Start Date End Date Julianne Tsang MD PCP - General 01 09/25/17 Denisse Ga MD PCP - General Pediatrics 09/26/17 11/18/19 Chantelle Ayala MD PCP - General Pediatrics 11/19/19 01/04/21 Palma Zamudio MD PCP - General Internal Medicine 01/05/21 01/12/21 Chantelle Ayala MD PCP - General Pediatrics 01/13/21 03/22/21 Betty Alejandro DO PCP - General Pediatrics 03/23/21 08/20/21 Ibrahima Hill MD [address] [place] [address] PCP - General Pediatrics 08/21/21 10/20/21 Naima Bearden MD [address] [place] [address] PCP - General Internal Medicine 10/21/21 [facility] Endocrine And [place] Supervisor Pediatric Endocrinology 05/04/22 documented as of this encounter
--- OUTSIDE RECORDS SUMMARY | 2024-05-09 02:04 | XMS_ITS | Encounter Summary ---
Author Organization [facility] Address [address] [place] [address] Care Team Providers Care Treasury Representative Name Role Phone JuanBetty clarke Primary Care Provider Unav Ibrahima Plascencia MD Primary Care Provider [phone] Naima Bearden MD Primary Care Prov ider [facility] Endocrine And Diabetes Unavailab le Unavailable Reason for Visit * Reason Onset Date Comments Prior Authorization 06/08/2021 MRI rt wrist Encounter Details Date Type Department Care Team Description 06/08/2021 Telephone Adult Medicine [address] [address] Zelda Han MD [address] [place] [address] Prior Authorization (MRI rt wrist) Social History Tobacco Use Types Packs/Day Years [...] encounter Miscellaneous Notes * Telephone Encounter - Carmen Olvera - 06/08/2021 12:00 PM EDT You placed an internal order for MRI right wrist on 06/05/21. Pt had this done at [facility] on 04/13/21. If you want done again please place and new external order as pt cannot have done here per telephone encounters from 02/24 documented in this encounter Plan of Treatment Not on file documented as of this encounter Visit Diagnoses Not on filedocumented in this encounter Care Teams Treasury Representative Relationship Specialty Start Date End Date Betty Alejandro DO PCP - General Pediatrics 03/23/21 08/20/21 Ibrahima Hill MD [address] [place] [address] PCP - General Pediatrics 08/21/21 10/20/21 Naima Bearden MD [address] [place] [address] PCP - General Internal Medicine 10/21/21 [facility] Endocrine And Screw Machine Adjuster Automatic Pediatric Endocrinology 05/04/22 documented as of this encounter
--- OUTSIDE RECORDS SUMMARY | 2024-05-09 02:04 | XMS_ITS | Encounter Summary ---
Author Organization [facility] Address [address] [facility] [place] [address] Care Team Providers Care Technical Training Manager Name Role Phone Denisse Ga MD Primary Care Provider UnavailChantelle Bautista MD Primary Care Provider UnavailPalma Perez MD Primary Care Provider Chantelle Marin MD Primary Care Provider Unavaila Betty Gutierrez DO Primary Care Provider Ibrahima Woo MD Primary Care Provider [phone] Naima Bearden MD Primary Care Prov ider [facility] Endocrine And Diabetes Unavailab le Unavailable Encounter Details Date Type Department Care Team Description 01/12/2018 Community Midwife Report Medical Records [address] [place] [address] Rina Villagomez MD Social History Tobacco Use [...] on filedocumented in this encounter Care Teams Technical Training Manager Relationship Specialty Start Date End Date Denisse Ga MD PCP - General Pediatrics 09/26/17 11/18/19 Chantelle Ayala MD PCP - General Pediatrics 11/19/19 01/04/21 Palma Zamudio MD PCP - General Internal Medicine 01/05/21 01/12/21 Chantelle Ayala MD PCP - General Pediatrics 01/13/21 03/22/21 Betty Alejandro DO PCP - General Pediatrics 03/23/21 08/20/21 Ibrahima Hill MD [address] [place] [address] PCP - General Pediatrics 08/21/21 10/20/21 Naima Bearden MD [address] [place] [address] PCP - General Internal Medicine 10/21/21 [facility] Endocrine And Shipyard Painter Pediatric Endocrinology 05/04/22 documented as of this encounter
--- OUTSIDE RECORDS SUMMARY | 2024-05-09 02:04 | XMS_ITS | Encounter Summary ---
Author Organization [facility] Address [address] [place] [address] Care Team Providers Care Interior Design Project Manager Name Role Phone Julianne Tsang MD Primary Care Provider UnavailDenisse Elmore MD Primary Care Provider Unavailab Chantelle Fuentes MD Primary Care Provider Unavaila Palma Ruiz MD Primary Care Provider Chantelle Marin MD Primary Care Provider Unavaila Betty Gutierrez DO Primary Care Provider Ibrahima Woo MD Primary Care Provider [phone] Naima Bearden MD Primary Care Prov ider [facility] Endocrine And Diabetes Unavailab le Unavailable Reason for Visit * Reason Onset Date Comments Vomiting 02/11/2012 Encounter Details Date Type Department Care Team Description 02/11/2012 Telephone [facility] - [address] [address] Juilanne Tsang MD Vomiting Social History Tobacco Use Types Packs/Day Years [...] encounter Miscellaneous Notes * Telephone Encounter - NORAH Gardiner - 02/11/2012 12:47 PM EST please f/u progress after er * Telephone Encounter - Nakita Bolton - 02/11/2012 11:11 AM EST Dad called - requesting to speak to a nurse because he can't take patient to ER any time soon because he's waiting for a coding director. Per triage, patient was advised that [facility] ER is waiting for him to arrive, and he needs to take patient to ER right away, even if he has to take siblings with him. Dad agrees. * Telephone Encounter - Joseph Villa L.P.N. - 02/11/2012 10:33 AM EST Pt was seen in [facility] ER on 02/06 for v&d (sib had similar sx), dc with home care. 02/08 Pt was seen at [facility] ER for N&V, received IVF along with antiemetic to use at home. Pt is out of med & started vomiting early am, looks pale. HNV yet this am. I advised ER, Dad says he will go to [facility] now, he does not want to go to [facility] right now, wait was too long & chaotic. I called & spoke with Mariya in [facility] ER, gave an expect, wanted her to be aware that Pt is a Type1 diabetic FYI. * Telephone Encounter - Leatha Reyna - 02/11/2012 10:23 AM EST Dad calling back --now stating that child went to the er Tuesday night to Tuesday and they gave her some pills to put under her tongue that helps but they do not have anymore, * Telephone Encounter - Leatha Reyna - 02/11/2012 9:22 AM EST Signs/Symptoms: Vomiting,since Tuesday, child is a diabetic Duration of symptoms: na Temperature: Na Allergies: Bactrim 200-40 mg/5ml Any chronic illnesses: Patient Active Problem List Diagnoses Code ??? Unspecified visual loss 369.9 ??? Wheezing 786.07 ??? Obesity 278.00 ??? Type 1 diabetes mellitus 250.01 ??? Acute pharyngitis 462 Is the child taking any medications: Current Outpatient Prescriptions Medication Sig Dispense Refill ??? PROAIR HFA 108 (90 BASE) MCG/ACT AERS INHALE 2 PUFFS INTO THE LUNGS EVERY 4 HOURS NEEDED FORCOUGH OR WHEEZING. 1 Inhaler 0 ??? ibuprofen (ADVIL,MOTRIN) 400 MG tablet Take 1 Tab by mouth every 6 hours as needed for Pain. 60Tab 1 ??? ibuprofen (ADVIL,MOTRIN) 200 MG tablet Take 2 Tabs by mouth Once. 2 Tab 0 ??? Spacer/Aero-Holding Chambers (AEROCHAMBER MV) MISC 1 Container by Does not apply route daily. 1Each 0 ??? fluticasone (FLOVENT HFA) 110 MCG/ACT inhaler Inhale 2 Puffs into the lungs 2 times daily. Resume if return of cold symptoms, cough or wheeze. 1 Inhaler 5 ??? sodium fluoride (LURIDE) 2.2 (1 F) MG per chewable tablet Take 1 tablet by mouth daily. 30 tablet 5 ??? insulin glargine (LANTUS) 100 UNIT/ML injection Inject into the skin at bedtime. ??? insulin lispro (HUMALOG) 100 UNIT/ML injection Inject into the skin 4 times daily (before mealsand nightly). documented in this encounter Plan of Treatment Not on file documented as of this encounter Visit Diagnoses Not on filedocumented in this encounter Care Teams Interior Design Project Manager Relationship Specialty Start Date End Date [...] General Pediatrics 03/23/21 08/20/21 Ibrahima Hill MD [address] [place] [address] PCP - General Pediatrics 08/21/21 10/20/21 Naima Bearden MD [address] [place] [address] PCP - General Internal Medicine 10/21/21 [facility] Endocrine And Spar Finisher Pediatric Endocrinology 05/04/22 documented as of this encounter
--- OUTSIDE RECORDS SUMMARY | 2024-05-09 02:04 | XMS_ITS | Encounter Summary ---
Author Organization [facility] Address [address] [place] [address] Care Team Providers Care Snow Plow Operator Name Role Phone Julianne Tsang MD Primary Care Provider UnavailDenisse Elmore MD Primary Care Provider Unavailab Chantelle Fuentes MD Primary Care Provider Unavaila Palma Ruiz MD Primary Care Provider Chantelle Marin MD Primary Care Provider Unavaila Betty Gutierrez DO Primary Care Provider Ibrahima Woo MD Primary Care Provider [phone] Naima Bearden MD Primary Care Prov ider [facility] Endocrine And Diabetes Unavailab le Unavailable Encounter Details Date Type Department Care Team Description 05/05/2016 Coil Taper Report Medical Records [address] [place] [id number] Ceasar Singh MD Social History Tobacco Use [...] on filedocumented in this encounter Care Teams Snow Plow Operator Relationship Specialty Start Date End Date [...] General Pediatrics 03/23/21 08/20/21 Ibrahima Hill MD [address] [place] [address] PCP - General Pediatrics 08/21/21 10/20/21 Naima Bearden MD [address] [place] [address] PCP - General Internal Medicine 10/21/21 [facility] Endocrine And Optical Laboratory Mechanic Pediatric Endocrinology 05/04/22 documented as of this encounter
--- OUTSIDE RECORDS SUMMARY | 2024-05-09 02:04 | XMS_ITS | Encounter Summary ---
Author Organization [facility] Address [address] [place] [address] Care Team Providers Care Stamp Clerk Name Role Phone Julianne Tsang MD Primary Care Provider UnavailDenisse Elmore MD Primary Care Provider Unavailab Chantelle Fuentes MD Primary Care Provider Unavaila Palma Ruiz MD Primary Care Provider Chantelle Mairn MD Primary Care Provider Unavaila Betty Gutierrez DO Primary Care Provider Ibrahima Woo MD Primary Care Provider [phone] Naima Bearden MD Primary Care Prov ider [facility] Endocrine And Diabetes Unavailab le Unavailable Encounter Details Date Type Department Care Team Description 12/10/2011 Export Sales Manager Report Medical Records [address] [place] [address] Carole Valverde Social History Tobacco Use Types [...] on filedocumented in this encounter Care Teams Stamp Clerk Relationship Specialty Start Date End Date Julianne Tsang MD PCP - General 01 09/25/17 Denisse Ga MD PCP - General Pediatrics 09/26/17 11/18/19 Chantelle Ayala MD PCP - General Pediatrics 11/19/19 01/04/21 Palma Zamudio MD PCP - General Internal Medicine 01/05/21 01/12/21 Chantelle Ayala MD PCP - General Pediatrics 01/13/21 03/22/21 Betty Alejandro DO PCP - General Pediatrics 03/23/21 08/20/21 Irbahima Hill MD [address] [place] [address] PCP - General Pediatrics 08/21/21 10/20/21 Naima Bearden MD [address] [place] [address] PCP - General Internal Medicine 10/21/21 [facility] Endocrine And Diet Clerk Pediatric Endocrinology 05/04/22 documented as of this encounter
--- OUTSIDE RECORDS SUMMARY | 2024-05-09 02:04 | XMS_ITS | Encounter Summary ---
Author Organization [facility] Address [address] [place] [address] Care Team Providers Care Dock Builder Name Role Phone Ibrahima Hill MD Primary Care Provider [phone] Naima Bearden MD Primary Care Prov ider [facility] Endocrine And Diabetes Unavailab le Unavailable Encounter Details Date Type Department Care Team Description 10/06/2021 Structural Steel Shop Supervisor Report Medical Records [address] [place] [address] Huma Jordan Social History Tobacco Use Types Packs/Day Years [...] on filedocumented in this encounter Care Teams Dock Builder Relationship Specialty Start Date End Date Ibrahima Hill MD [address] [place] [address] PCP - General Pediatrics 08/21/21 10/20/21 Naima Bearden MD [address] [place] [address] PCP - General Internal Medicine 10/21/21 Group, [facility] Endocrine And Manager Creative Services Pediatric Endocrinology 05/04/22 documented as of this encounter
--- OUTSIDE RECORDS SUMMARY | 2024-05-09 02:04 | XMS_ITS | Encounter Summary ---
Author Organization [facility] Address [address] [place] [address] Care Team Providers Care Stereotype Caster Name Role Phone Julianne Tsang MD Primary Care Provider UnavailDenisse Elmore MD Primary Care Provider UnavailChantelle Bautista MD Primary Care Provider Unavaila Palma Ruiz MD Primary Care Provider Chantelle Marin MD Primary Care Provider Unavaila Betty Gutierrez DO Primary Care Provider Ibrahima Woo MD Primary Care Provider [phone] Naima Bearden MD Primary Care Prov ider [facility] Endocrine And Diabetes Unavailab le Unavailable Encounter Details Date Type Department Care Team Description 07/13/2012 Head Knitting Machine Fixer Report Medical Records [address] [place] [address] Abstract, Provider Social History Tobacco Use Types Packs/Day Years [...] on filedocumented in this encounter Care Teams Stereotype Caster Relationship Specialty Start Date End Date Julianne Tsang MD PCP - General 01 09/25/17 Denisse Ga MD PCP - General Pediatrics 09/26/17 11/18/19 Chantelle Ayala MD PCP - General Pediatrics 11/19/19 01/04/21 Palma Zamudio MD PCP - General Internal Medicine 01/05/21 01/12/21 Chantelle Ayala MD PCP - General Pediatrics 01/13/21 03/22/21 Betty Alejandro DO PCP - General Pediatrics 03/23/21 08/20/21 Ibrahima Hill MD [address] [place] [address] PCP - General Pediatrics 08/21/21 10/20/21 Naima Bearden MD [address] [place] [address] PCP - General Internal Medicine 10/21/21 [facility] Endocrine And Director Digital Marketing Pediatric Endocrinology 05/04/22 documented as of this encounter
--- OUTSIDE RECORDS SUMMARY | 2024-05-09 02:04 | XMS_ITS | Encounter Summary ---
Author Organization [facility] Address [address] [place] [address] Care Team Providers Care Organ Pipe Finisher Name Role Phone Julianne Tsang MD Primary Care Provider UnavailDenisse Elmore MD Primary Care Provider UnavailChantelle Bautista MD Primary Care Provider Unavaila Palma Ruiz MD Primary Care Provider Chantelle Marin MD Primary Care Provider Unavaila Betty Gutierrez DO Primary Care Provider Ibrahima Woo MD Primary Care Provider [phone] Naima Bearden MD Primary Care Prov ider [facility] Endocrine And Diabetes Unavailab le Unavailable Encounter Details Date Type Department Care Team Description 02/06/2012 Night Triage Doc Medical Records [address] [place] [address] Abstract, Provider Social History Tobacco Use Types [...] on filedocumented in this encounter Care Teams Organ Pipe Finisher Relationship Specialty Start Date End Date Julianne Tsang MD PCP - General 01 09/25/17 Denisse Ga MD PCP - General Pediatrics 09/26/17 11/18/19 Chantelle Ayala MD PCP - General Pediatrics 11/19/19 01/04/21 Palma Zamudio MD PCP - General Internal Medicine 01/05/21 01/12/21 Chantelle Ayala MD PCP - General Pediatrics 01/13/21 03/22/21 Betty Alejandro DO PCP - General Pediatrics 03/23/21 08/20/21 Ibrahima Hill MD [address] [place] [address] PCP - General Pediatrics 08/21/21 10/20/21 Naima Bearden MD [address] [place] [address] PCP - General Internal Medicine 10/21/21 [facility] Endocrine And Upholstery Covers Inspector Pediatric Endocrinology 05/04/22 documented as of this encounter
--- OUTSIDE RECORDS SUMMARY | 2024-05-09 02:04 | XMS_ITS | Encounter Summary ---
Author Organization [facility] Address [address] [place] [address] Care Team Providers Care Automatic Hemmer Name Role Phone Julianne Tsang MD Primary Care Provider UnavailDenisse Elmore MD Primary Care Provider UnavailChantelle Bautista MD Primary Care Provider Unavaila Palma Ruiz MD Primary Care Provider Chantelle Marin MD Primary Care Provider Unavaila Betty Gutierrez DO Primary Care Provider Ibrahima Woo MD Primary Care Provider Naima Bearden MD Primary Care Prov ider [facility] Endocrine And Diabetes Unavailab le Unavailable Encounter Details Date Type Department Care Team Description 12/27/2012 Business Analytics Director Report Medical Records [address] [place] [address] Francy Harris Social History Tobacco Use Types [...] on filedocumented in this encounter Care Teams Automatic Hemmer Relationship Specialty Start Date End Date Julianne Tsang MD PCP - General 01 09/25/17 Denisse Ga MD PCP - General Pediatrics 09/26/17 11/18/19 Chantelle Ayala MD PCP - General Pediatrics 11/19/19 01/04/21 Palma Zamudio MD PCP - General Internal Medicine 01/05/21 01/12/21 Chantelle Ayala MD PCP - General Pediatrics 01/13/21 03/22/21 Betty Alejandro DO PCP - General Pediatrics 03/23/21 08/20/21 Ibrahima Hill MD [address] [place] [address] PCP - General Pediatrics 08/21/21 10/20/21 Naima Bearden MD [address] [place] [address] PCP - General Internal Medicine 10/21/21 [facility] Endocrine And Radiology Physician Assistant Pediatric Endocrinology 05/04/22 documented as of this encounter
--- OUTSIDE RECORDS SUMMARY | 2024-05-09 02:04 | XMS_ITS | Encounter Summary ---
Author Organization [facility] Address [address] [place] [address] Care Team Providers Care Byproducts Supervisor Name Role Phone Julianne Tsang MD Primary Care Provider UnavailDenisse Elmore MD Primary Care Provider UnavailChantelle Bautista MD Primary Care Provider Unavaila Palma Ruiz MD Primary Care Provider Chantelle Marin MD Primary Care Provider Unavaila Betty Gutierrez DO Primary Care Provider Ibrahima Woo MD Primary Care Provider [phone] Naima Bearden MD Primary Care Prov ider [facility] Endocrine And Diabetes Unavailab le Unavailable Encounter Details Date Type Department Care Team Description 11/13/2013 Glass Belt Sander Report Medical Records [address] [place] [address] [facility] Children's Social History Tobacco Use Types [...] on filedocumented in this encounter Care Teams Byproducts Supervisor Relationship Specialty Start Date End Date Julianne Tsang MD PCP - General 01 09/25/17 Denisse Ga MD PCP - General Pediatrics 09/26/17 11/18/19 Chantelle Ayala MD PCP - General Pediatrics 11/19/19 01/04/21 Palma Zamudio MD PCP - General Internal Medicine 01/05/21 01/12/21 Chantelle Ayala MD PCP - General Pediatrics 01/13/21 03/22/21 Betty Alejandro DO PCP - General Pediatrics 03/23/21 08/20/21 Ibrahima Hill MD [address] [place] [address] PCP - General Pediatrics 08/21/21 10/20/21 Naima Bearden MD [address] [place] [address] PCP - General Internal Medicine 10/21/21 [facility] Endocrine And Optical Engineering Technician Pediatric Endocrinology 05/04/22 documented as of this encounter
--- OUTSIDE RECORDS SUMMARY | 2024-05-09 02:04 | XMS_ITS | Encounter Summary ---
Author Organization [facility] Address [address] [place] [address] Care Team Providers Care Ornithology Teacher Name Role Phone Chantelle Ayala MD Primary Care Provider Unavaila Betty Gutierrez DO Primary Care Provider Unav Ibrahima Plascencia MD Primary Care Provider [phone] Naima Bearden MD Primary Care Prov ider [facility] Endocrine And Diabetes Unavailab le Unavailable Encounter Details Date Type Department Care Team Description 03/02/2021 Patient Registration Specialist Report Medical Records [address] [place] [address] Rina Villagomez MD Social History Tobacco Use [...] have Coronavirus / COVID-19? No / Unsure 02/10/2021 11:16 AM EST documented as of this encounter Plan of Treatment Not on file documented as of this encounter Visit Diagnoses Not on filedocumented in this encounter Care Teams Ornithology Teacher Relationship Specialty Start Date End Date Chantelle Ayala MD PCP - General Pediatrics 01/13/21 03/22/21 Betty Alejandro DO PCP - General Pediatrics 03/23/21 08/20/21 Ibrahima Hill MD [address] [place] [address] PCP - General Pediatrics 08/21/21 10/20/21 Naima Bearden MD [address] [place] [address] PCP - General Internal Medicine 10/21/21 [facility] Endocrine And Receptionist Doctor'S Office Pediatric Endocrinology 05/04/22 documented as of this encounter
--- OUTSIDE RECORDS SUMMARY | 2024-05-09 02:04 | XMS_ITS | Encounter Summary ---
Author Organization [facility] Address [address] [place] [address] Care Team Providers Care Hot Mill Operator Name Role Phone Julianne Tsang MD Primary Care Provider UnavailDenisse Elmore MD Primary Care Provider UnavailChantelle Bautista MD Primary Care Provider Unavaila Palma Ruiz MD Primary Care Provider Chantelle Marin MD Primary Care Provider Unavaila Betty Gutierrez DO Primary Care Provider Ibrahima Woo MD Primary Care Provider [phone] Naima Bearden MD Primary Care Prov ider [facility] Endocrine And Diabetes Unavailab le Unavailable Encounter Details Date Type Department Care Team Description 10/18/2013 Prep Manager Report Medical Records [address] [place] [address] Francy Harris Social History Tobacco Use Types [...] on filedocumented in this encounter Care Teams Hot Mill Operator Relationship Specialty Start Date End Date [...] General Pediatrics 03/23/21 08/20/21 Ibrahima Hill MD [address] [place] [address] PCP - General Pediatrics 08/21/21 10/20/21 Naima Bearden MD [address] [place] [address] PCP - General Internal Medicine 10/21/21 [facility] Endocrine And Cabin Equipment Supervisor Pediatric Endocrinology 05/04/22 documented as of this encounter
--- OUTSIDE RECORDS SUMMARY | 2024-05-09 02:04 | XMS_ITS | Encounter Summary ---
Author Organization [facility] Address [address] [place] [address] Care Team Providers Care Sintering Plant Supervisor Name Role Phone Julianne Tsang MD Primary Care Provider UnavailDenisse Elmore MD Primary Care Provider UnavailChantelle Bautista MD Primary Care Provider Unavaila Palma Ruiz MD Primary Care Provider Chantelle Marin MD Primary Care Provider Unavaila Betty Gutierrez DO Primary Care Provider Ibrahima Woo MD Primary Care Provider [phone] Naima Bearden MD Primary Care Prov ider [facility] Endocrine And Diabetes Unavailab le Unavailable Encounter Details Date Type Department Care Team Description 09/13/2013 Earth Sciences Professor Report Medical Records [address] [place] [address] [facility] Children's Social History Tobacco Use Types Packs/Day [...] on filedocumented in this encounter Care Teams Sintering Plant Supervisor Relationship Specialty Start Date End Date [...] Pediatrics 03/23/21 08/20/21 Ibrahima Hill MD [address] [place] [address] PCP - General Pediatrics 08/21/21 10/20/21 Naima Bearden MD [address] [place] [address] PCP - General Internal Medicine 10/21/21 [facility] Endocrine And Cooler Deliverer Pediatric Endocrinology 05/04/22 documented as of this encounter
--- OUTSIDE RECORDS SUMMARY | 2024-05-09 02:05 | XMS_ITS | Encounter Summary ---
Author Organization [facility] Address [address] [facility] [place] [facility] [place] [address] Care Team Providers Care Physicist Cryogenics Name Role Phone Denisse Ga MD Primary Care Provider UnavailChantelle Bautista MD Primary Care Provider UnavailPalma Perez MD Primary Care Provider Chantelle Marin MD Primary Care Provider Unavaila Betty Gutierrez DO Primary Care Provider Ibrahima Woo MD Primary Care Provider [phone] Naima Bearden MD Primary Care Prov ider [facility] Endocrine And Diabetes Unavailab le Unavailable Encounter Details Date Type Department Care Team Description 01/01/2019 Medical Sales Report Medical Records [address] [place] [address] Bharat Galdamez Social History Tobacco Use Types [...] on filedocumented in this encounter Care Teams Physicist Cryogenics Relationship Specialty Start Date End Date Denisse Ga MD PCP - General Pediatrics 09/26/17 11/18/19 Chantelle Ayala MD PCP - General Pediatrics 11/19/19 01/04/21 Palma Zamudio MD PCP - General Internal Medicine 01/05/21 01/12/21 Chantelle Ayala MD PCP - General Pediatrics 01/13/21 03/22/21 Betty Alejandro DO PCP - General Pediatrics 03/23/21 08/20/21 Ibrahima Hill MD [address] [place] [address] PCP - General Pediatrics 08/21/21 10/20/21 Naima Bearden MD [address] [place] [address] PCP - General Internal Medicine 10/21/21 [facility] Endocrine And Road Commissioner Pediatric Endocrinology 05/04/22 documented as of this encounter
--- OUTSIDE RECORDS SUMMARY | 2024-05-09 02:05 | XMS_ITS | Encounter Summary ---
Author Organization [facility] Address [address] [place] [address] Care Team Providers Care Probate Judge Name Role Phone Naima Bearden MD Primary Care Prov ider [facility] Endocrine And Diabetes Unavailab le Unavailable Reason for Visit * Reason Onset Date Comments Provider Call Back 08/23/2023 Encounter Details Date Type Department Care Team Description 08/23/2023 Telephone Adult Medicine [address] [address] Naima Bearden MD [address] [place] [address] Provider Call Back Social History Tobacco Use Types Packs/Day Years [...] encounter Miscellaneous Notes * Telephone Encounter - Leatha Elkins L.P.N. - 08/23/2023 3:38 PM EDT needs to bring the form in and have it sent to forms * Telephone Encounter - Roxanna John - 08/23/2023 3:22 PM EDT Patient is calling to speak with Naima Leahy. Was told she needed to have form filled out by PCP for DTA. Patient aware PCP returning tomorrow. documented in this encounter Plan of Treatment Not on file documented as of this encounter Visit Diagnoses Not on filedocumented in this encounter Care Teams Probate Judge Relationship Specialty Start Date End Date Naima Bearden MD [address] [place] [address] PCP - General Internal Medicine 10/21/21 Group, [facility] Endocrine And Contour Band Saw Operator Vertical Pediatric Endocrinology 05/04/22 documented as of this encounter
--- OUTSIDE RECORDS SUMMARY | 2024-05-09 02:05 | XMS_ITS | Encounter Summary ---
Author Organization [facility] Address [address] [place] [address] Care Team Providers Care Vehicle Delivery Worker Name Role Phone Julianne sTang MD Primary Care Provider UnavailDenisse Elmore MD Primary Care Provider UnavailChantelle Bautista MD Primary Care Provider Unavaila Palma Ruiz MD Primary Care Provider Chantelle Marin MD Primary Care Provider Unavaila Betty Gutierrez DO Primary Care Provider Ibrahima Woo MD Primary Care Provider [phone] Naima Bearden MD Primary Care Prov ider [facility] Endocrine And Diabetes Unavailab le Unavailable Encounter Details Date Type Department Care Team Description 01/14/2015 Subsystems Engineer Report Medical Records [address] [place] [address] Francy Harris Social History Tobacco Use Types [...] on filedocumented in this encounter Care Teams Vehicle Delivery Worker Relationship Specialty Start Date End Date Julianne [...] Pediatrics 03/23/21 08/20/21 Ibrahima Hill MD [address] [place] [address] PCP - General Pediatrics 08/21/21 10/20/21 Naima Bearden MD [address] [place] [address] PCP - General Internal Medicine 10/21/21 [facility] Endocrine And Counseling Psychologist Pediatric Endocrinology 05/04/22 documented as of this encounter
--- OUTSIDE RECORDS SUMMARY | 2024-05-09 02:05 | XMS_ITS | Encounter Summary ---
Author Organization [facility] Address [address] [facility] [place] [facility] [place] [address] Care Team Providers Care Denture Processor Name Role Phone Betty Alejandro DO Primary Care Provider Unav ailable Ibrahima Hill MD Primary Care Provider [phone] Naima Bearden MD Primary Care Prov ider [facility] Endocrine And Diabetes Unavailab le Unavailable Encounter Details Date Type Department Care Team Description 06/05/2021 Field Service Supervisor Report Medical Records [address] [place] [address] Abstract, Provider Social History Tobacco Use Types [...] on filedocumented in this encounter Care Teams Denture Processor Relationship Specialty Start Date End Date Betty Alejandro DO PCP - General Pediatrics 03/23/21 08/20/21 Ibrahima Hill MD [address] [place] [address] PCP - General Pediatrics 08/21/21 10/20/21 Naima Bearden MD [address] [place] [address] PCP - General Internal Medicine 10/21/21 [facility] Endocrine And Traffic Control Supervisor Pediatric Endocrinology 05/04/22 documented as of this encounter
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
--- OUTSIDE RECORDS SUMMARY | 2024-05-09 02:05 | XMS_ITS | Encounter Summary ---
Author Organization [facility] Address [address] [place] [address] Care Team Providers Care Chief Innovation Officer Name Role Phone Denisse Ga MD Primary Care Provider UnavailChantelle Bautista MD Primary Care Provider UnavailPalma Perez MD Primary Care Provider Chantelle Marin MD Primary Care Provider Unavaila Betty Gutierrez DO Primary Care Provider Ibrahima Woo MD Primary Care Provider Naima Bearden MD Primary Care Prov ider [facility] Endocrine And Diabetes Unavailab le Unavailable Encounter Details Date Type Department Care Team Description 05/29/2018 Clinical Psychologist Report Medical Records [address] [place] [address] Bev Bojorquez MD Social History Tobacco Use Types Packs/Day [...] on filedocumented in this encounter Care Teams Chief Innovation Officer Relationship Specialty Start Date End Date Denisse Ga MD PCP - General Pediatrics 09/26/17 11/18/19 Chantelle Ayala MD PCP - General Pediatrics 11/19/19 01/04/21 Palma Zamudio MD PCP - General Internal Medicine 01/05/21 01/12/21 Chantelle Ayala MD PCP - General Pediatrics 01/13/21 03/22/21 Betty Alejandro DO PCP - General Pediatrics 03/23/21 08/20/21 Ibrahima Hill MD [address] [place] [address] PCP - General Pediatrics 08/21/21 10/20/21 Naima Bearden MD [address] [place] [address] PCP - General Internal Medicine 10/21/21 [facility] Endocrine And Sergeant Missile Crewman Pediatric Endocrinology 05/04/22 documented as of this encounter
--- OUTSIDE RECORDS SUMMARY | 2024-05-09 02:05 | XMS_ITS | Encounter Summary ---
Author Organization [facility] Address [address] [place] [address] Care Team Providers Care Mining Manager Name Role Phone Denisse Ga MD Primary Care Provider UnavailChantelle Bautista MD Primary Care Provider UnavailPalma Perez MD Primary Care Provider Chantelle Marin MD Primary Care Provider Unavaila Betty Gutierrez DO Primary Care Provider Ibrahima Woo MD Primary Care Provider [phone] Naima Bearden MD Primary Care Prov ider [facility] Endocrine And Diabetes Unavailab le Unavailable Encounter Details Date Type Department Care Team Description 05/02/2019 Critical Care Registered Nurse Report Medical Records [address] [place] [address] Jeevan Amin MD Social History Tobacco Use Types Packs/Day [...] on filedocumented in this encounter Care Teams Mining Manager Relationship Specialty Start Date End Date Denisse Ga MD PCP - General Pediatrics 09/26/17 11/18/19 Chantelle Ayala MD PCP - General Pediatrics 11/19/19 01/04/21 Palma Zamudio MD PCP - General Internal Medicine 01/05/21 01/12/21 Chantelle Ayala MD PCP - General Pediatrics 01/13/21 03/22/21 Betty Alejandro DO PCP - General Pediatrics 03/23/21 08/20/21 Ibrahima Hill MD [address] [place] [address] PCP - General Pediatrics 08/21/21 10/20/21 Naima Bearden MD [address] [place] [address] PCP - General Internal Medicine 10/21/21 [facility] Endocrine And Paper Bag Inspector Pediatric Endocrinology 05/04/22 documented as of this encounter
--- OUTSIDE RECORDS SUMMARY | 2024-05-09 02:05 | XMS_ITS | Encounter Summary ---
Author Organization [facility] Address [address] [place] [address] Care Team Providers Care Exchange Clerk Name Role Phone Denisse Ga MD Primary Care Provider UnavailChantelle Bautista MD Primary Care Provider UnavailPalma Perez MD Primary Care Provider Chantelle Marin MD Primary Care Provider Unavaila Betty Gutierrez DO Primary Care Provider Ibrahima Woo MD Primary Care Provider [phone] Naima Bearden MD Primary Care Prov ider [facility] Endocrine And Diabetes Unavailab le Unavailable Encounter Details Date Type Department Care Team Description 09/27/2019 Hole Puncher Strap Report Medical Records [address] [place] [address] Social History Tobacco Use Types Packs/Day Years [...] on filedocumented in this encounter Care Teams Exchange Clerk Relationship Specialty Start Date End Date Denisse Ga MD PCP - General Pediatrics 09/26/17 11/18/19 Chantelle Ayala MD PCP - General Pediatrics 11/19/19 01/04/21 Palma Zamudio MD PCP - General Internal Medicine 01/05/21 01/12/21 Chantelle Ayala MD PCP - General Pediatrics 01/13/21 03/22/21 Betty Alejandro DO PCP - General Pediatrics 03/23/21 08/20/21 Ibrahima Hill MD [address] [place] [address] PCP - General Pediatrics 08/21/21 10/20/21 Naima Bearden MD [address] [place] [address] PCP - General Internal Medicine 10/21/21 [facility] Endocrine And Inspector Coated Fabrics Pediatric Endocrinology 05/04/22 documented as of this encounter
--- OUTSIDE RECORDS SUMMARY | 2024-05-09 02:05 | XMS_ITS | Encounter Summary ---
Author Organization [facility] Address [address] [place] [address] Care Team Providers Care Rubber Attacher Name Role Phone Chantelle Ayala MD Primary Care Provider UnavailPalma Perez MD Primary Care Provider Chantelle Marin MD Primary Care Provider Unavaila Betty Gutierrez DO Primary Care Provider UnaIbrahima Thompson MD Primary Care Provider [phone] Naima Bearden MD Primary Care Prov ider [facility] Endocrine And Diabetes Unavailab le Unavailable Encounter Details Date Type Department Care Team Description 08/07/2020 Student Success Coach Report Medical Records [address] [place] [address] Ceasar Singh MD Social History Tobacco Use [...] have Coronavirus / COVID-19? No / Unsure 07/10/2020 3:11 PM EDT documented as of this encounter Plan of Treatment Not on file documented as of this encounter Visit Diagnoses Not on filedocumented in this encounter Care Teams Rubber Attacher Relationship Specialty Start Date End Date Chantelle Ayala MD PCP - General Pediatrics 11/19/19 01/04/21 Palma Zamudio MD PCP - General Internal Medicine 01/05/21 01/12/21 Chantelle Ayala MD PCP - General Pediatrics 01/13/21 03/22/21 Betty Alejandro DO PCP - General Pediatrics 03/23/21 08/20/21 Ibrahima Hill MD [address] [place] [address] PCP - General Pediatrics 08/21/21 10/20/21 Naima Bearden MD [address] [place] [address] PCP - General Internal Medicine 10/21/21 [facility] Endocrine And Foil Spinner Pediatric Endocrinology 05/04/22 documented as of this encounter
--- OUTSIDE RECORDS SUMMARY | 2024-05-09 02:05 | XMS_ITS | Encounter Summary ---
Author Organization [facility] Address [address] [place] [address] Care Team Providers Care Jewelry Engraver Name Role Phone Julianne Tsang MD Primary Care Provider UnavailDenisse Elmore MD Primary Care Provider UnavailChantelle Bautista MD Primary Care Provider Unavaila Palma Ruiz MD Primary Care Provider Chantelle Marin MD Primary Care Provider Unavaila Betty Gutierrez DO Primary Care Provider Ibrahima Woo MD Primary Care Provider [phone] Naima Bearden MD Primary Care Prov ider [facility] Endocrine And Diabetes Unavailab le Unavailable Encounter Details Date Type Department Care Team Description 06/09/2017 Marine Diesel Mechanic Report Medical Records 4 [place] [address] Francy Harris Social History Tobacco Use Types [...] on filedocumented in this encounter Care Teams Jewelry Engraver Relationship Specialty Start Date End Date Julianne Tsang MD PCP - General 01 09/25/17 Denisse Ga MD PCP - General Pediatrics 09/26/17 11/18/19 Chantelle Ayala MD PCP - General Pediatrics 11/19/19 01/04/21 Palma Zamudio MD PCP - General Internal Medicine 01/05/21 01/12/21 Chantelle Ayala MD PCP - General Pediatrics 01/13/21 03/22/21 Betty Alejandro DO PCP - General Pediatrics 03/23/21 08/20/21 Ibrahima Hill MD [address] [place] [address] PCP - General Pediatrics 08/21/21 10/20/21 Naima Bearden MD [address] [place] [address] PCP - General Internal Medicine 10/21/21 [facility] Endocrine And Maintenance Millwright Pediatric Endocrinology 05/04/22 documented as of this encounter
--- OUTSIDE RECORDS SUMMARY | 2024-05-09 02:05 | XMS_ITS | Encounter Summary ---
Author Organization [facility] Address [address] [place] [address] Care Team Providers Care Software Systems Analyst Name Role Phone Naima Bearden MD Primary Care Prov ider [facility] Endocrine And Diabetes Unavailab le Unavailable Encounter Details Date Type Department Care Team Description 08/19/2022 Telephone Adult Medicine [facility] [address] [place] [address] Naima Bearden MD [address] [place] [address] Social History Tobacco Use Types Packs/Day Years Used Date Smoking Tobacco: Never Smokeless Tobacco: Never Alcohol Use Standard Drinks/Week Comments Not Asked 0 (1 standard drink = 0.6 oz pur e alcohol) Sex Assigned at Date Recorded Not on file Job Start Date Occupation Industry Not on file Not on file Not on file COVID-19 Exposure Response Date Recorded In the last 10 days, have arcaelis berrios been in contact with someone who was confirmed or suspected to have Coronavirus/COVID-19? No / Unsure 08/19/2022 12:27 PM EDT documented as of this encounter Plan of Treatment Not on file documented as of this encounter Visit Diagnoses Not on filedocumented in this encounter Care Teams Software Systems Analyst Relationship Specialty Start Date End Date Naima Bearden MD [address] [place] [address] PCP - General Internal Medicine 10/21/21 Group, [facility] [employer] [facility] Endocrine And Assistant Chief Train Dispatcher Pediatric Endocrinology 05/04/22 documented as of this encounter
--- OUTSIDE RECORDS SUMMARY | 2024-05-09 02:05 | XMS_ITS | Encounter Summary ---
Author Organization [facility] Address [address] [place] [address] Care Team Providers Care Arts Administrator Or Manager Name Role Phone Denisse Ga MD Primary Care Provider UnavailChantelle Bautista MD Primary Care Provider Unavaila Palma Ruiz MD Primary Care Provider Chantelle Marin MD Primary Care Provider Unavaila Betty Gutierrez DO Primary Care Provider Ibrahima Woo MD Primary Care Provider [phone] Naima Bearden MD Primary Care Prov ider [facility] Endocrine And Diabetes Unavailab le Unavailable Reason for Visit * Reason Comments E-prescribe Rx Request Encounter Details Date Type Department Care Team Description 02/13/2019 Refill Pediatrics - [address] [address] Denisse Ga MD E-prescribe Rx Request Social History Tobacco Use [...] encounter Miscellaneous Notes * Telephone Encounter - Leah Miller - 02/13/2019 10:06 AM EST When was patients last PE/WCC? 10/05/18 When is patients next PE/WCC scheduled? waitlisted Denisse Ga RX REQUEST WHEN MED IS ON THE [...] until the end of the day? NO Denisse Ga Payor: [employer] FFS / Plan: [facility] / Product Type: MEDICAID RISK documented in this encounter Plan of Treatment Not on file documented as of this encounter Visit Diagnoses Not on filedocumented in this encounter Care Teams Arts Administrator Or Manager Relationship Specialty Start Date End Date Denisse Ga MD PCP - General Pediatrics 09/26/17 11/18/19 Chantelle Ayala MD PCP - General Pediatrics 11/19/19 01/04/21 Palma Zamudio MD PCP - General Internal Medicine 01/05/21 01/12/21 Chantelle Ayala MD PCP - General Pediatrics 01/13/21 03/22/21 Betty Alejandro DO PCP - General Pediatrics 03/23/21 08/20/21 Ibrahima Hill MD [address] [place] [address] PCP - General Pediatrics 08/21/21 10/20/21 Naima Bearden MD [address] [place] [address] PCP - General Internal Medicine 10/21/21 Group, [facility] Endocrine And Barrel Raiser Helper Pediatric Endocrinology 05/04/22 documented as of this encounter
--- OUTSIDE RECORDS SUMMARY | 2024-05-09 02:05 | XMS_ITS | Encounter Summary ---
Author Organization [facility] Address [address] [place] [address] Care Team Providers Care Granulator Name Role Phone JuanBetty clarke Primary Care Provider Unav Ibrahima Plascencia MD Primary Care Provider [phone] Naima Bearden MD Primary Care Prov ider [facility] Endocrine And Diabetes Unavailab le Unavailable Encounter Details Date Type Department Care Team Description 07/08/2021 Telephone [facility] [address] [phone] Zelda Han MD [address] [address] Social History Tobacco Use Types Packs/Day Years [...] encounter Miscellaneous Notes * Telephone Encounter - Marv Roman - 07/08/2021 2:37 PM EDT LVM for patient to please call back to our office. * Telephone Encounter - Marv Roman - 07/08/2021 2:37 PM EDT ----- Message from Zelda Han MD sent at 07/01/2021 7:08 PM EDT ----- Marv This patient had an MRI over at [facility]. As of yet we have not had follow-up with the patient. Best if she make an appointment so we can go over the images together. Can you check with the front office agent and see if we can get something set up this upcoming couple of weeks documented in this encounter Plan of Treatment Not on file documented as of this encounter Visit Diagnoses Not on filedocumented in this encounter Care Teams Granulator Relationship Specialty Start Date End Date Betty Alejandro DO PCP - General Pediatrics 03/23/21 08/20/21 Ibrahima Hill MD [address] [place] [address] PCP - General Pediatrics 08/21/21 10/20/21 Naima Bearden MD [address] [place] [address] PCP - General Internal Medicine 10/21/21 [facility] Endocrine And Health Promotion Manager Pediatric Endocrinology 05/04/22 documented as of this encounter
--- OUTSIDE RECORDS SUMMARY | 2024-05-09 02:05 | XMS_ITS | Encounter Summary ---
Author Organization [facility] Address [address] [place] [address] Care Team Providers Care Artist Suspect Name Role Phone Julianne Tsang MD Primary Care Provider UnavailDenisse Elmore MD Primary Care Provider UnavailChantelle Bautista MD Primary Care Provider Unavaila Palma Ruiz MD Primary Care Provider Chantelle Marin MD Primary Care Provider Unavaila Betty Gutierrez DO Primary Care Provider Ibrahima Woo MD Primary Care Provider [phone] Naima Bearden MD Primary Care Prov ider [facility] Endocrine And Diabetes Unavailab le Unavailable Encounter Details Date Type Department Care Team Description 06/10/2017 Patient Care Director Report Medical Records 4 [place] [address] Francy Harris Social History Tobacco Use Types [...] on filedocumented in this encounter Care Teams Artist Suspect Relationship Specialty Start Date End Date Julianne [...] Pediatrics 03/23/21 08/20/21 Ibrahima Hill MD [address] [place] [address] PCP - General Pediatrics 08/21/21 10/20/21 Naima Bearden MD [address] [place] [address] PCP - General Internal Medicine 10/21/21 [facility] Endocrine And Circular Distributor Pediatric Endocrinology 05/04/22 documented as of this encounter
--- OUTSIDE RECORDS SUMMARY | 2024-05-09 02:05 | XMS_ITS | Encounter Summary ---
Author Organization [facility] Address [address] [place] [address] Care Team Providers Care Wrapper Dipper Name Role Phone Julianne Tsang MD Primary Care Provider UnavailDenisse Elmore MD Primary Care Provider UnavailChantelle Bautista MD Primary Care Provider Unavaila Palma Ruiz MD Primary Care Provider Chantelle Marin MD Primary Care Provider Unavaila Betty Gutierrez DO Primary Care Provider Ibrahima Woo MD Primary Care Provider [phone] Naima Bearden MD Primary Care Prov ider [facility] Endocrine And Diabetes Unavailab le Unavailable Encounter Details Date Type Department Care Team Description 02/20/2015 Senior Benefits Specialist Report Medical Records [address] [place] [address] Francy Harris Social History Tobacco Use Types [...] on filedocumented in this encounter Care Teams Wrapper Dipper Relationship Specialty Start Date End Date Julianne Tsang MD PCP - General 01 09/25/17 Denisse Ga MD PCP - General Pediatrics 09/26/17 11/18/19 Chantelle Ayala MD PCP - General Pediatrics 11/19/19 01/04/21 Palma Zamudio MD PCP - General Internal Medicine 01/05/21 01/12/21 Chantelle Ayala MD PCP - General Pediatrics 01/13/21 03/22/21 Betty Alejandro DO PCP - General Pediatrics 03/23/21 08/20/21 Ibrahima Hill MD [address] [place] [address] PCP - General Pediatrics 08/21/21 10/20/21 Naima Bearden MD [address] [place] [address] PCP - General Internal Medicine 10/21/21 [facility] Endocrine And Shipping And Receiving Supervisor Pediatric Endocrinology 05/04/22 documented as of this encounter
--- OUTSIDE RECORDS SUMMARY | 2024-05-09 02:05 | XMS_ITS | Encounter Summary ---
Author Organization [facility] Address [address] [place] [address] Care Team Providers Care Group Chief Operator Name Role Phone Denisse Ga MD Primary Care Provider UnavailChantelle Bautista MD Primary Care Provider Unavaila Palma Ruiz MD Primary Care Provider Chantelle Marin MD Primary Care Provider Unavaila Betty Gutierrez DO Primary Care Provider Ibrahima Woo MD Primary Care Provider [phone] Naima Bearden MD Primary Care Prov ider [facility] Endocrine And Diabetes Unavailab le Unavailable Reason for Visit * Reason Comments E-prescribe Rx Request Encounter Details Date Type Department Care Team Description 10/30/2019 Refill Pediatrics - [address] [address] Dora Miller RNCPNP E-prescribe Rx Request Social History Tobacco Use [...] encounter Miscellaneous Notes * Telephone Encounter - Scarlett Root - 10/31/2019 3:22 PM EDT When was patients last PE/WCC? 10/05/18 When is patients next PE/WCC scheduled? [email or web address] Denisse Ga RX REQUEST WHEN MED IS ON THE LIST: All of the medications requested were on the CURRENT MEDS list Did you check the Pharmacy information above?: YES Indicate how soon the patient needs the script: OK FOR NEXT DAY Patient would like script to be: E-PRESCRIBED/FAXED TO PHARMACY Is the doctor here today?: NO Can the message wait until the doctor returns?: YES Has the patient been told that the prescription will not be filled until the end of the day? NO Denisse Ga Payor: [employer] FFS / Plan: [facility] / Product Type: MEDICAID RISK documented in this encounter Plan of Treatment Not on file documented as of this encounter Visit Diagnoses Not on filedocumented in this encounter Care Teams Group Chief Operator Relationship Specialty Start Date End Date Denisse Ga MD PCP - General Pediatrics 09/26/17 11/18/19 Chantelle Ayala MD PCP - General Pediatrics 11/19/19 01/04/21 Palma Zamudio MD PCP - General Internal Medicine 01/05/21 01/12/21 Chantelle Ayala MD PCP - General Pediatrics 01/13/21 03/22/21 Betty Alejandro DO PCP - General Pediatrics 03/23/21 08/20/21 Ibrahima Hill MD [address] [place] [address] PCP - General Pediatrics 08/21/21 10/20/21 Naima Bearden MD [address] [place] [address] PCP - General Internal Medicine 10/21/21 Group, [facility] Endocrine And Cart Attendant Pediatric Endocrinology 05/04/22 documented as of this encounter
--- OUTSIDE RECORDS SUMMARY | 2024-05-09 02:05 | XMS_ITS | Encounter Summary ---
Author Organization [facility] Address [address] [facility] [place] [place] [address] Care Team Providers Care Linux Unix Administrator Name Role Phone Denisse Ga MD Primary Care Provider UnavailChantelle Bautista MD Primary Care Provider UnavailPalma Perez MD Primary Care Provider Chantelle Marin MD Primary Care Provider Unavaila Betty Gutierrez DO Primary Care Provider Ibrahima Woo MD Primary Care Provider [phone] Naima Bearden MD Primary Care Prov ider [facility] Endocrine And Diabetes Unavailab le Unavailable Encounter Details Date Type Department Care Team Description 09/26/2019 Leather Sponger Report Medical Records [address] [place] [address] Abstract, Provider Social History Tobacco Use Types [...] on filedocumented in this encounter Care Teams Linux Unix Administrator Relationship Specialty Start Date End Date Denisse Ga MD PCP - General Pediatrics 09/26/17 11/18/19 Chantelle Ayala MD PCP - General Pediatrics 11/19/19 01/04/21 Palma Zamudio MD PCP - General Internal Medicine 01/05/21 01/12/21 Chantelle Ayala MD PCP - General Pediatrics 01/13/21 03/22/21 Betty Alejandro DO PCP - General Pediatrics 03/23/21 08/20/21 Ibrahima Hill MD [address] [place] [address] PCP - General Pediatrics 08/21/21 10/20/21 Naima Bearden MD [address] [place] [address] PCP - General Internal Medicine 10/21/21 [facility] Endocrine And Strawhat Sizer Pediatric Endocrinology 05/04/22 documented as of this encounter
--- OUTSIDE RECORDS SUMMARY | 2024-05-09 02:05 | XMS_ITS | Encounter Summary ---
Author Organization [facility] Address [address] [place] [address] Care Team Providers Care Groover And Turner Name Role Phone Julianne Tsang MD Primary Care Provider UnavailDenisse Elmore MD Primary Care Provider UnavailChantelle Bautista MD Primary Care Provider Unavaila Palma Ruiz MD Primary Care Provider Chantelle Marin MD Primary Care Provider Unavaila Betty Gutierrez DO Primary Care Provider Ibrahima Woo MD Primary Care Provider [phone] Naima Bearden MD Primary Care Prov ider [facility] Endocrine And Diabetes Unavailab le Unavailable Encounter Details Date Type Department Care Team Description 11/26/2014 Detention Worker Report Medical Records 4 [place] [address] Francy Harris Social History Tobacco Use Types [...] on filedocumented in this encounter Care Teams Groover And Turner Relationship Specialty Start Date End Date Julianne Tsang MD PCP - General 01 09/25/17 Denisse Ga MD PCP - General Pediatrics 09/26/17 11/18/19 Chantelle Ayala MD PCP - General Pediatrics 11/19/19 01/04/21 Palma Zamudio MD PCP - General Internal Medicine 01/05/21 01/12/21 Chantelle Ayala MD PCP - General Pediatrics 01/13/21 03/22/21 Betty Alejandro DO PCP - General Pediatrics 03/23/21 08/20/21 Ibrahima Hill MD [address] [place] [address] PCP - General Pediatrics 08/21/21 10/20/21 Naima Bearden MD [address] [place] [address] PCP - General Internal Medicine 10/21/21 [facility] Endocrine And Bread Panner Pediatric Endocrinology 05/04/22 documented as of this encounter
--- OUTSIDE RECORDS SUMMARY | 2024-05-09 02:05 | XMS_ITS | Encounter Summary ---
Author Organization [facility] Address [address] [place] [address] Care Team Providers Care Authorization Manager Name Role Phone Julianne Tsang MD Primary Care Provider UnavailDenisse Elmore MD Primary Care Provider UnavailChantelle Bautista MD Primary Care Provider Unavaila Palma Ruiz MD Primary Care Provider Chantelle Marin MD Primary Care Provider Unavaila Betty Gutierrez DO Primary Care Provider Ibrahima Woo MD Primary Care Provider [phone] Naima Bearden MD Primary Care Prov ider [facility] Endocrine And Diabetes Unavailab le Unavailable Encounter Details Date Type Department Care Team Description 08/23/2014 Tube Balancer Report Medical Records 4 [place] [address] Francy Harris Social History Tobacco Use Types [...] on filedocumented in this encounter Care Teams Authorization Manager Relationship Specialty Start Date End Date [...] General Pediatrics 03/23/21 08/20/21 Ibrahima Hill MD [address] [place] [address] PCP - General Pediatrics 08/21/21 10/20/21 Naima Bearden MD [address] [place] [address] PCP - General Internal Medicine 10/21/21 [facility] Endocrine And Parcel Wrapper Pediatric Endocrinology 05/04/22 documented as of this encounter
--- OUTSIDE RECORDS SUMMARY | 2024-05-09 02:05 | XMS_ITS | Encounter Summary ---
Author Organization [facility] Address [address] [facility] [place] [place] [address] Care Team Providers Care Sales Solutions Associate Name Role Phone Denisse Ga MD Primary Care Provider UnavailChantelle Bautista MD Primary Care Provider UnavailPalma Perez MD Primary Care Provider Chantelle Marin MD Primary Care Provider Unavaila Betty Gutierrez DO Primary Care Provider Ibrahima Woo MD Primary Care Provider [phone] Naima Bearden MD Primary Care Prov ider [facility] Endocrine And Diabetes Unavailab le Unavailable Encounter Details Date Type Department Care Team Description 03/29/2019 Release of Information Medical Records [address] [place] [id number] Abstract, Provider Social History Tobacco Use Types [...] on filedocumented in this encounter Care Teams Sales Solutions Associate Relationship Specialty Start Date End Date Denisse Ga MD PCP - General Pediatrics 09/26/17 11/18/19 Chantelle Ayala MD PCP - General Pediatrics 11/19/19 01/04/21 Palma Zamudio MD PCP - General Internal Medicine 01/05/21 01/12/21 Chantelle Ayala MD PCP - General Pediatrics 01/13/21 03/22/21 Betty Alejandro DO PCP - General Pediatrics 03/23/21 08/20/21 Ibrahima Hill MD [address] [place] [address] PCP - General Pediatrics 08/21/21 10/20/21 Naima Bearden MD [address] [place] [address] PCP - General Internal Medicine 10/21/21 [facility] Endocrine And Sql Server Consultant Pediatric Endocrinology 05/04/22 documented as of this encounter
--- OUTSIDE RECORDS SUMMARY | 2024-05-09 02:05 | XMS_ITS | Encounter Summary ---
Author Organization [facility] Address [address] [facility] [place] [address] Care Team Providers Care Applications Processor Name Role Phone Chantelle Ayala MD Primary Care Provider UnavailPalma Perez MD Primary Care Provider Chantelle Marin MD Primary Care Provider Unavaila Betty Gutierrez DO Primary Care Provider Ibrahima Woo MD Primary Care Provider Naima Bearden MD Primary Care Prov ider [facility] Endocrine And Diabetes Unavailab le Unavailable Encounter Details Date Type Department Care Team Description 05/09/2020 Old Medical Records Medical Records [address] [place] [address] Abstract, Provider Social History Tobacco Use Types [...] on filedocumented in this encounter Care Teams Applications Processor Relationship Specialty Start Date End Date Chantelle Ayala MD PCP - General Pediatrics 11/19/19 01/04/21 Palma Zamudio MD PCP - General Internal Medicine 01/05/21 01/12/21 Chantelle Ayala MD PCP - General Pediatrics 01/13/21 03/22/21 Betty Alejandro DO PCP - General Pediatrics 03/23/21 08/20/21 Ibrahima Hill MD [address] [place] [address] PCP - General Pediatrics 08/21/21 10/20/21 Naima Bearden MD [address] [place] [address] PCP - General Internal Medicine 10/21/21 [facility] Endocrine And Maintenance Shop Manager Pediatric Endocrinology 05/04/22 documented as of this encounter
--- OUTSIDE RECORDS SUMMARY | 2024-05-09 02:05 | XMS_ITS | Clinical Summary ---
Author Organization [facility] Address [address] [facility] [place] [address] Care Team Providers Care Material Requirements Planning Manager Name Role Phone Naima Bearden MD Primary Care Prov ider [facility] And Diabetes Unavailab le Unavailable Allergies Active Allergy Reactions Severity Noted Date Comments Sulfa Drugs Rash/Dermatitis 09/02/2008 Gluten Meal 06/18/2014 Gluten Morphine Hives/Urticaria 10/05/2018 Sulfamethoxazole-Trimetho prim 04/15/2022 Unasyn 10/16/2021 itchy rash at [facility] 8-22 Medications Medication Sig Dispensed Refills Start Date End Date Status insulin lispro (HUMALOG) 100 UNIT/ML injection Inject into the skin 4 times daily (before meals and nightly). 0 Active Vitamin D, Cholecalciferol, 400 UNITS CHEW Take by mouth. 0 Active Spacer/Aero-Holding Chambers (AEROCHAMBER MV) Misc 1 Container by Does not apply route daily. 1 Each 0 08/15/2018 Active Dapsone (ACZONE) 5 % Gel Apply 1 Squirt topically 2 times daily. 1 Tube 5 03/16/2019 Active loratadine (CLARITIN) 10 MG tablet TAKE 1 TABLET BY MOUTH EVERY DAY 30 Tab 2 10/31/2019 Active Calcium Carbonate 500 (200 Ca) MG Wafer Take 500 mg by mouth 3 times daily. 0 Active Pantoprazole Sodium 40 MG Powd Pack Take 40 mg by mouth. 0 Active Glucagon 3 MG/DOSE Powder by Nasal route. 0 Active Acetone, Urine, Test (KETOSTIX ) by In Vitro route. 0 Active ondansetron (ZOFRAN-ODT) 4 MG disintegrating tablet Take 4 mg by mouth every 8 hours as needed. 0 Active famotidine (PEPCID) 20 MG tablet Take 20 mg by mouth 2 times daily. 0 Active calcium carbonate (TUMS) 500 MG chewable tablet Take 1 tablet by mouth daily. 0 Active [facility] D3 50 MCG (2000 UT) Cap TAKE 1 CAPSULE EVERY DAY BY MOUTH 30 Capsule 1 06/09/2021 Active insulin glargine (LANTUS) 100 UNIT/ML injection Inject 50 Units into the skin at bedtime as needed. 0 Active ALBUTEROL SULFATE (Ventolin HFA) 108 (90 Base) MCG/ACT Aero Soln Inhale 2 Puffs into the lungs every 6 hours as needed for Cough or Wheezing. 18 g 3 10/29/2022 Active naproxen (NAPROSYN) 500 MG tablet Take 1 Tablet by mouth 2 times daily as needed for Pain (Take with food.) for up to 10 days. 20 Tablet 0 12/28/2022 Active Flovent HFA 110 MCG/ACT inhaler INHALE 2 PUFFS INTO THE LUNGS TWICE A DAY 12 g 2 01/14/2023 Active levothyroxine 125 MCG tablet Take 1.5 Tablets by mouth daily. 135 Tablet 0 07/20/2023 Active atorvastatin (LIPITOR) 10 MG tablet Take 1 Tablet by mouth daily. 90 Tablet 0 07/20/2023 Active Clobetasol Propionate 0.05 % Shampoo Apply 5 mL topically three times a week. Apply to dry hair, let sit for 10 minutes, lather then rinse out completely. 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 f/u with the results of her studies 01-24 needs to f/u appt Last Assessment & Plan: 6- ,active inflammatory disease, physical therapy/ continue with the meloxicam on an as-needed basis film of the left hip to r/o developmental abnormality check some markers of inflammation. 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 09/26/19: genetics via telemedicine. 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 GIS PHYSICAL SCIENTIST to identify Javier's syndrome and gains/ losses in genetic material including the SHOX gene. GIS PHYSICAL SCIENTIST results in 3-4 weeks. 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 rec echocardiogram and renal u/s f/u 1yr Patellar tendinitis of right knee 2018 Last Assessment & Plan: 11-21 has f/u PT Vitamin D deficiency 04/12/2013 Last Assessment & Plan: 6- Vit D level 18.5 Learning problem 08/15/2012 Last Assessment & Plan: IEP for school Adjustment disorder with depressed mood 05/18/2012 Last Assessment & Plan: 11 therapist Jyotsna fournier [employer] Celiac disease 04/11/2012 Last Assessment & Plan: 11 improved diet/zofran/tums/PEPCID 20 mg BID constipation/VitD,levothyroxine/pump for diabetes f/u 3 m.EGD if not better at next visit 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 Last Assessment & Plan: levothyroxine dose 125 mcg/day f/u 3m DM type 1 (diabetes mellitus, type 1) Overview: Multiple episodes DKA Last Assessment & Plan: repeat TFTs improve diet and increase physical activity f/u 3m Wheezing 07/17/2008 Last Assessment & Plan: proair prn/with URIs Resolved Problems Problem Noted Date Resolved Date Chest pain, precordial 01/22/2020 1 Overview: 01-18-20 seen in er EKG nonischemic/labs neg. CXR neg/tachycardia/palpations/hypoglycemic in er d/c home Last Assessment & Plan: 11-13-20 seen in er EKG nonischemic/labs neg. CXR neg/tachycardia/palpations/hypoglycemic in er d/c home Sinusitis, acute 01/08/2020 01/26/2021 Overview: 11-20 On Augmentin for sinusitis and probiotics Last Assessment & Plan: 11-20 On Augmentin for sinusitis and probiotics Foot sprain, left, sequela 12/25/201901/26 Overview: 11-20 resolved Last Assessment & Plan: 11- resolved DKA, type 1 10/16/2018 11/04/2021 Overview: Diagnosed at age 10y.10/13/18: seen at [facility] ER, BS >500. Given I liter fluids * 2. AG 11, glucose 441, ketones +. Given humalog 25 units, POC 46, given oj and sandwich. poc 91. Changed pump and sensor site. Last visit 02-22. 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 Given I liter fluids * 2. AG 11, glucose 441, ketones +. Given humalog 25 units, POC 46, given oj and sandwich. poc 91. Changed pump and sensor site. Last visit 02-22. F/u with pedi endocrine,admission 07-31-19 to 08-07-19 /f/u eye exam/labwork f/u 3m Gastroenteritis 10/10/2018 01/08/2020 Overview: - seen ER for gastro/colitis/dehydration/chest pain. r/o DKA CXR neg.EKG neg Last Assessment & Plan: 7-19 seen ER for gastro/colitis/dehydration/chest pain. r/o DKA CXR neg.EKG neg Functional Constipation 06/09/2016 01/08/20 20 Overview: 3-17 rectal bldg seen /functional miralax 1 cap bid,senna 1 tab bid if needed appt 7- functional constipation .miralax 1 cap BID.senna 1 tab bid if needed f/u 3m 7-18 miralax prn appt GI 10-12/20/17: Miralax I cap bid, senna 1 tab bid prn, vitamin d. ttga to monitor compliance. 8- improved miralax prn 11-20 resolved Last Assessment & Plan: 8-19 improved miralax prn 11-20 resolved Difficulty with family 01/07/2015 0 Overview: 11-15 active 51A case,6-16 closed per child. 3-18 active 51A 7-18 no contact per mom Last Assessment & Plan: 3-18 active 51A 7-18 no contact per mom Diabetes 08/01/2013 01/17/2015 Last Assessment & Plan: 5-14 admitted PICU for DKA on insulin drip and monitoring of electrolytes and serial abdominal exams. 6-15 Monthly visits pedi endo Acute pharyngitis 12/22/2011 08/20/2013 Overview: Frequent, non-strep pharyngitis -02/14, 03/18, 12/16 Obesity 12/22/2010 04/20/2012 Unspecified visual loss 01/20/2006 10/25/19 22 Overview: Glasses 2008 appt 8- dr keith no diabetic retinopathy 6-15,6-16 appt yrly for diabetes 7-18 ,8-19 improved vision no glasses yrly visits 8-20 last eye exam 11-20 yrly eye exam Last Assessment & Plan: yrly eye exam Immunizations Name Administration Dates Next Due COVID-19 (Pfizer) 07/31/2020,07/10/2020 DTaP 01/20/2006, 3,03/29/2002,01/25,2001 Gardasil 9 (Hpv) 08/26/2015,10/29/2014 HIB 12/11/2002, 3,01/25/2002,11/24 HPV (Gardasil) 08/22/2014 Hepatitis B-3 Dose (<19yrs) 07/02/2002, 2,2001 Influenza (> 6 Months) 01/26/2021,2012,11/18/2011,12/22,11/27/2009,04/08/2009,02/27/2008 ,02/23/2007,01/20/2006 Influenza (>6 Months) Split Preservative Free 12/19/2019,12/11/2014,01/10/2014 Influenza H1N1 Pandemic Flu Vaccine 05/20/2009,0 04/08/2009 Influenza Vaccine-preservati ve Free-quadrivalent 4 Years 12/13/2022 MMR (Vackhhq-Ckcbf-Qwmhmdc) 01/20/2006, 3 Meningococcal (Menactra) 09/29/2017,08/20/2013 PPD-RBMG 12/11/2003 PREVNAR 20 08/19/2022 Pneumococcal(Pedi) Conjugate PCV-7 09/25,03/29/2002,01/25/2002,11/24 Polio (IPV) 01/20/2006, 3,01/25/2002,11/24 Tdap 11/02/2023,08/20/2013 Varicella 02/23/2007,09/25/2002 Family History Medical History Relation Name Comments Diabetes Father Arthritis Maternal Grandmother Diabetes Maternal Grandmother Arthritis Mother Diabetes Sister Relation Name Status Comments Father Alive Maternal Grandmother Mother Alive Sister Alive Social History Tobacco Use Types Packs/Day Years Used Date Smoking Tobacco: Never Smokeless Tobacco: Never Tobacco Cessation:Counseling Given: Not Answered Alcohol Use Standard Drinks/Week Comments Never 0 (1 standard drink = 0.6 oz pur e alcohol) Education Answer Date Recorded What is the highest level of school you have completed or the highest degree you have received? 11th grade 11/02/2023 Sex Assigned at Date Recorded Not on file Job Start Date Occupation Industry Not on file Not on file Not on file Last Filed Vital Signs Vital Sign Reading Time Taken Comments Blood Pressure 110/80 11/16/2023 9:58 AM EDT Pulse 101 11/16/2023 9:58 AM EDT Temperature 36.3 ??C (97.3 ??F) 11/10/2023 9:55 AM ED T Respiratory Rate 14 11/10/2023 9:55 AM EDT Oxygen Saturation 96% 11/16/2023 9:58 AM EDT Inhaled Oxygen Concentration - - Weight 99.8 kg (220 lb) 11/16/2023 9:58 AM EDT Height 154.9 cm (5' 1 ) 11/16/2023 9:58 AM EDT Body Mass Index 41.57 11/16/2023 9:58 AM EDT Plan of Treatment Health Maintenance Due Date Last Done Comments CERVICAL CANCER SCREENING 2022 DIABETES: ANNUAL EYE EXAM 09/23/20222021, 11/05/2019, 10/31/2018, Additional history exists INFLUENZA (#1) 2023 12/13/2022, 01/06, 12/19/2019, Additional history exists DIABETES: ANNUAL FOOT EXAM 12/14/2023 12/13/2022 DIABETES: ANNUAL URINE PROTEIN TEST (MICROALBUMIN) 12/14/2023 12/13/2022 GONORRHEA & CHLAMYDIA SCREENING 12/14/2023 12/13/2022, 01/26/2021, 01/07/2020, Additional history exists DIABETES: BLOOD SUGAR CONTROL TEST (HGBA1C) 02/02/2024 11/02/2023, 07/20/2023, 12/13/2022, Additional history exists BMI CHECK/ADVISE 03/07/2024 11/10/2023, , 07/20/2023, Additional history exists DEPRESSION SCREENING/FOLLOWUP 03/07/2024 07/20/2023 (Completed), 04/15/2022, 01/26/2021, Additional history exists SOCIAL NEEDS SCREENING 03/07/2024 , 04/15/2022, 03/23/2021, Additional history exists DIABETES/HEART DISEASE: ANNUAL CHOLESTEROL (LDL) 07/19/2024 07/20/2023, 10/29/2022, 08/26/2015, Additional history exists BASELINE HEALTH EXAM 18-39 11/01/202811/01, 10/29/2022, 08/19/2022, Additional history exists DTAP/TDAP/TD (8 - Td or Tdap) 11/01/2033 11/02/2023, 08/20/2013, 01/20/2006, Additional history exists PNEUMOCOCCAL VACCINE FOR HIGH RISK PATIENTS (#2) 2066 08/19/2022 Covid-19 Vaccine ( season) 2112 07/31/2020, 07/10/2020 Postponed from 11/06/2023 (Patient Refused) HUMAN PAPILLOMAVIRUS (HPV) Completed 08/25, 10/29/2014, 08/22/2014 Care Teams Material Requirements Planning Manager Relationship Specialty Start Date End Date Naima Bearden MD [address] [place] [phone] PCP - General Internal Medicine 10/21/21 Group, [facility] Endocrine And [place] Worker Helper Pediatric Endocrinology 05/04/22
--- OUTSIDE RECORDS SUMMARY | 2024-05-09 02:05 | XMS_ITS | Encounter Summary ---
Author Organization [facility] Address [address] [place] [address] Care Team Providers Care Radiology Assistant Name Role Phone Julianne Tsang MD Primary Care Provider UnavailDenisse Elmore MD Primary Care Provider Unavailab Chantelle Fuentes MD Primary Care Provider Unavaila Palma Ruiz MD Primary Care Provider Chantelle Marin MD Primary Care Provider Unavaila Betty Gutierrez DO Primary Care Provider Ibrahima Woo MD Primary Care Provider [phone] Naima Bearden MD Primary Care Prov ider [facility] Endocrine And Diabetes Unavailab le Unavailable Encounter Details Date Type Department Care Team Description 12/24/2010 Patent Engineer Report Medical Records [address] [place] [address] Camryn Grayson Social History Tobacco Use Types Packs/Day Years Used Date Smoking Tobacco: Never Alcohol Use Standard Drinks/Week Comments [...] on filedocumented in this encounter Care Teams Radiology Assistant Relationship Specialty Start Date End Date Julianne Tsang MD PCP - General 01 09/25/17 Denisse Ga MD PCP - General Pediatrics 09/26/17 11/18/19 Chantelle Ayala MD PCP - General Pediatrics 11/19/19 01/04/21 Palma Zamudio MD PCP - General Internal Medicine 01/05/21 01/12/21 Chantelle Ayala MD PCP - General Pediatrics 01/13/21 03/22/21 Betty Alejandro DO PCP - General Pediatrics 03/23/21 08/20/21 Ibrahima Hill MD [address] [place] [id number] PCP - General Pediatrics 08/21/21 10/20/21 Naima Bearden MD [address] [place] [phone] PCP - General Internal Medicine 10/21/21 [facility] Endocrine And International Bank Manager Pediatric Endocrinology 05/04/22 documented as of this encounter
--- OUTSIDE RECORDS SUMMARY | 2024-05-09 02:05 | XMS_ITS | Encounter Summary ---
Author Organization [facility] Address [address] [place] [address] Care Team Providers Care Manager Sound Name Role Phone Naima Bearden MD Primary Care Prov ider [facility] Endocrine And Diabetes Unavailab le Unavailable Reason for Visit * Reason Onset Date Comments Prior Authorization 11/16/2023 Gastric empt liza study Encounter Details Date Type Department Care Team Description 11/16/2023 Telephone Adult Medicine [address] [phone] Lulu Leija, DAVID [address] [facility] [place] [address] Prior Authorization (Gastric emptying study ) Social History Tobacco Use Types Packs/Day Years [...] Miscellaneous Notes * Telephone Encounter - Carmen De Jesus May - 11/16/2023 1:19 PM EDT Mariely lara required Order faxed to CCC dept at [facility]. They will contact patient and schedule appt. Notification letter sent documented in this encounter Plan of Treatment Not on file documented as of this encounter Visit Diagnoses Not on filedocumented in this encounter Care Teams Manager Sound Relationship Specialty Start Date End Date Naima Bearden MD [address] [place] [phone] PCP - General Internal Medicine 10/21/21 [facility] Endocrine And Electronics Recycler Pediatric Endocrinology 05/04/22 documented as of this encounter
--- OUTSIDE RECORDS SUMMARY | 2024-05-09 02:05 | XMS_ITS | Encounter Summary ---
Author Organization [facility] Address [address] [place] [address] Care Team Providers Care Rn Recovery Name Role Phone Naima Bearden MD Primary Care Prov ider Group, [facility] Endocrine And Diabetes Unavailab le Unavailable Encounter Details Date Type Department Care Team Description 04/30/2022 Event Planning Manager Report Medical Records [address] [place] [address] Diabetes, [facility] Pediatric Endocrinology And [address] [place] [address] [phone] Social History Tobacco Use Types Packs/Day Years [...] Recorded In the last 10 days, have aracelis berrios been in contact with someone who was confirmed or suspected to have Coronavirus/COVID-19? No / Unsure 04/15/2022 9:08 AM EST documented as of this encounter Plan of Treatment Not on file documented as of this encounter Visit Diagnoses Not on filedocumented in this encounter Care Teams Rn Recovery Relationship Specialty Start Date End Date Naima Bearden MD [address] [place] [id number] PCP - General Internal Medicine 10/21/21 Group, [facility] Endocrine And Corporate Recycling Manager Pediatric Endocrinology 05/04/22 documented as of this encounter
--- OUTSIDE RECORDS SUMMARY | 2024-05-09 02:05 | XMS_ITS | Encounter Summary ---
Author Organization [facility] Address [address] [place] [address] Care Team Providers Care Timekeeper Name Role Phone Julianne Tsang MD Primary Care Provider UnavailDenisse Elmore MD Primary Care Provider Unavailab Chantelle Fuentes MD Primary Care Provider Unavaila Palma Ruiz MD Primary Care Provider Chantelle Marin MD Primary Care Provider Unavaila Betty Gutierrez DO Primary Care Provider Ibrahima Woo MD Primary Care Provider [phone] Naima Bearden MD Primary Care Prov ider [facility] Endocrine And Diabetes Unavailab le Unavailable Reason for Visit * Reason Onset Date Comments Form 06/11/2014 Encounter Details Date Type Department Care Team Description 06/11/2014 Telephone [facility] - [address] [address] Julianne Tsang MD Form Social History Tobacco Use Types Packs/Day [...] encounter Miscellaneous Notes * Telephone Encounter - Mary Palumbo - 06/11/2014 1:52 PM EDT Pediatric Form Request Type of form: [facility] form Form placed in Dora's form folder Date of last physical: 08/20/13 Does patient want: Fax to other office/MD at fax # [phone] documented in this encounter Plan of Treatment Not on file documented as of this encounter Visit Diagnoses Not on filedocumented in this encounter Care Teams Timekeeper Relationship Specialty Start Date End Date Julianne Tsang MD PCP - General 01 09/25/17 Denisse Ga MD PCP - General Pediatrics 09/26/17 11/18/19 Chantelle Ayala MD PCP - General Pediatrics 11/19/19 01/04/21 Palma Zamudio MD PCP - General Internal Medicine 01/05/21 01/12/21 Chantelle Ayala MD PCP - General Pediatrics 01/13/21 03/22/21 Betty Alejandro DO PCP - General Pediatrics 03/23/21 08/20/21 Ibrahima Hill MD [address] [place] [id number] PCP - General Pediatrics 08/21/21 10/20/21 Naima Bearden MD [address] [place] [id number] PCP - General Internal Medicine 10/21/21 Group [facility] Endocrine And Technology Education Instructor Pediatric Endocrinology 05/04/22 documented as of this encounter
--- OUTSIDE RECORDS SUMMARY | 2024-05-09 02:05 | XMS_ITS | Encounter Summary ---
Author Organization [facility] Address [address] [place] [address] Care Team Providers Care Registered Dietician Name Role Phone Julianne Tsang MD Primary Care Provider UnavailDenisse Elmore MD Primary Care Provider Unavailab Chantelle Fuentes MD Primary Care Provider Unavaila Palma Ruiz MD Primary Care Provider Chantelle Marin MD Primary Care Provider Unavaila Betty Gutierrez DO Primary Care Provider Ibrahima Woo MD Primary Care Provider [phone] Naima Bearden MD Primary Care Prov ider [facility] Endocrine And Diabetes Unavailab le Unavailable Reason for Visit * Reason Onset Date Comments er follow up 02/17/2015 Encounter Details Date Type Department Care Team Description 02/17/2015 Telephone [facility] - [address] [address] Julianne Tsang MD er follow up Social History Tobacco Use Types Packs/Day Years [...] Miscellaneous Notes * Telephone Encounter - Thalia Maderaefraín Mendenhall - 02/17/2015 12:35 PM EST [facility] - Telephone Triage Documentation CHIEF COMPLAINT:dad calling child seen in er for stomach bug vomiting and abd pain. Today child is much better no vomiting, no fever, some diarrhea this am. Dad states abd pain is from menstrual cramping. BS this am 107. Dad calling to give update PCP: Julianne Tsang LMP/EDC: Current Outpatient Prescriptions Medication Sig Dispense Refill ??? FLOVENT HFA 110 MCG/ACT inhaler INHALE 2 PUFFS TWICE A DAY RESUME IF RETURN OF COLD SYMPTOMS,COUGH,WHEEZE 1 Inhaler 5 ??? polyethylene glycol (GLYCOLAX) powder Take 17 g by mouth daily. 1 capful mixed in 8 oz water orjuice daily 510 g 0 ??? ibuprofen (ADVIL,MOTRIN) 600 MG tablet Take 1 Tab by mouth every 6 hours as needed for Pain. 90Tab 1 ??? AYR SALINE NASAL Gel 1 Applicator by Nasal route 3 times daily as needed (bloody nose). 1 Tube 3 ??? PROAIR HFA 108 (90 BASE) MCG/ACT Aero Soln INHALE 2 PUFFS EVERY 4 HOURS NEEDED COUGH OR WHEEZING 1 Inhaler 0 ??? ALBUTEROL SULFATE 108 (90 BASE) MCG/ACT Aero Soln Inhale 2 Puffs into the lungs every 4 hours as needed for Cough or Wheezing. 1 Inhaler 0 ??? Spacer/Aero-Holding Chambers (BREATHERITE RENETTA SPACER ADULT) Misc 1 Device by Does not apply route as needed (for cough). 1 Each 0 ??? Spacer/Aero-Holding Chambers (AEROCHAMBER MV) Misc 1 Container by Does not apply route daily. 1Each 0 ??? Vitamin D, Cholecalciferol, 400 UNITS CHEW Take by mouth. ??? insulin lispro (HUMALOG) 100 UNIT/ML injection Inject into the skin 4 times daily (before mealsand nightly). No current facility-administered medications for this visit. Allergies: Bactrim 200-40 mg/5ml and Gluten meal Patient Active Problem List Diagnosis Code ??? Unspecified visual loss H54.7 ??? Wheezing R06.2 ??? Type 1 diabetes mellitus E10.9 ??? 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 Celiac disease K90.0 ??? Adjustment disorder with depressed mood F43.21 ??? Learning problem F81.9 ??? Vitamin D deficiency E55.9 ??? Difficulty with family Z63.9 DISPOSITION:Advice given. Pt. will call back if worsens or no improvement. REFERENCE:Pediatric's Telephone Protocols by Frank/Antonio CALLER UNDERSTANDS & AGREES WITH ADVICE:YES * Telephone Encounter - Brennan Amor - 02/17/2015 11:59 AM EST ER follow-up appointment message Patients PCP: Julianne Tsang When was patient seen at the ER: 02/15/15 Which hospital was patient seen at?: [facility] What was the injury or problem the patient went to the ER for? Stomach virus If the patient was seen for an injury what as the DOI? N/A Were x-rays taken? YES Was lab work done? NO Were any other tests done? NO If yes, what tests? N/A documented in this encounter Plan of Treatment Not on file documented as of this encounter Visit Diagnoses Not on filedocumented in this encounter Care Teams Registered Dietician Relationship Specialty Start Date End Date Julianne Tsang MD PCP - General 01 09/25/17 Denisse Ga MD PCP - General Pediatrics 09/26/17 11/18/19 Chantelle Ayala MD PCP - General Pediatrics 11/19/19 01/04/21 Palma Zamudio MD PCP - General Internal Medicine 01/05/21 01/12/21 Chantelle Ayala MD PCP - General Pediatrics 01/13/21 03/22/21 Betty Alejandro DO PCP - General Pediatrics 03/23/21 08/20/21 Ibrahima Hill MD [address] [place] [address] PCP - General Pediatrics 08/21/21 10/20/21 Naima Bearden MD [address] [place] [address] PCP - General Internal Medicine 10/21/21 [facility] Endocrine And Cocoa Room Operator Pediatric Endocrinology 05/04/22 documented as of this encounter
--- OUTSIDE RECORDS SUMMARY | 2024-05-09 02:05 | XMS_ITS | Encounter Summary ---
Author Organization [facility] Address [address] [place] [address] Care Team Providers Care Professor Of Nursing Name Role Phone Chantelle Ayala MD Primary Care Provider UnavailPalma Perez MD Primary Care Provider Chantelle Marin MD Primary Care Provider Unavaila Betty Gutierrez DO Primary Care Provider Ibrahima Woo MD Primary Care Provider [phone] Naima Bearden MD Primary Care Prov ider [facility] Endocrine And Diabetes Unavailab le Unavailable Encounter Details Date Type Department Care Team Description 11/11/2020 Rental Clerk Tool And Equipment Report Medical Records [address] [place] [address] Rina Villagomez MD Social History Tobacco Use [...] filedocumented in this encounter Care Teams Professor Of Nursing Relationship Specialty Start Date End Date Chantelle Ayala MD PCP - General Pediatrics 11/19/19 01/04/21 Palma Zamudio MD PCP - General Internal Medicine 01/05/21 01/12/21 Chantelle Ayala MD PCP - General Pediatrics 01/13/21 03/22/21 Betty Alejandro DO PCP - General Pediatrics 03/23/21 08/20/21 Ibrahima Hill MD [address] [place] [address] PCP - General Pediatrics 08/21/21 10/20/21 Naima Bearden MD [address] [place] [address] PCP - General Internal Medicine 10/21/21 [facility] Endocrine And Steamboat Pilot Pediatric Endocrinology 05/04/22 documented as of this encounter
--- OUTSIDE RECORDS SUMMARY | 2024-05-09 02:05 | XMS_ITS | Encounter Summary ---
Author Organization [facility] Address [address] [place] [address] Care Team Providers Care Claims Coordinator Name Role Phone Julianne Tsang MD Primary Care Provider UnavailDenisse Elmore MD Primary Care Provider UnavailChantelle Bautista MD Primary Care Provider Unavaila Palma Ruiz MD Primary Care Provider Chantelle Marin MD Primary Care Provider Unavaila Betty Gutierrez DO Primary Care Provider Ibrahima Woo MD Primary Care Provider [phone] Naima Bearden MD Primary Care Prov ider [facility] Endocrine And Diabetes Unavailab le Unavailable Encounter Details Date Type Department Care Team Description 02/26/2014 Slot Supervisor Report Medical Records [address] [place] [address] Francy Harris Social History Tobacco Use Types [...] on filedocumented in this encounter Care Teams Claims Coordinator Relationship Specialty Start Date End Date Julianne Tsang MD PCP - General 01 09/25/17 Denisse Ga MD PCP - General Pediatrics 09/26/17 11/18/19 Chantelle Ayala MD PCP - General Pediatrics 11/19/19 01/04/21 Palma Zamudio MD PCP - General Internal Medicine 01/05/21 01/12/21 Chantelle Ayala MD PCP - General Pediatrics 01/13/21 03/22/21 Betty Alejandro DO PCP - General Pediatrics 03/23/21 08/20/21 Ibrahima Hill MD [address] [place] [address] PCP - General Pediatrics 08/21/21 10/20/21 Naima Bearden MD [address] [place] [address] PCP - General Internal Medicine 10/21/21 [facility] Endocrine And Concrete Float Maker Pediatric Endocrinology 05/04/22 documented as of this encounter
--- OUTSIDE RECORDS SUMMARY | 2024-05-09 02:05 | XMS_ITS | Encounter Summary ---
Author Organization [facility] Address [address] [facility] [place] [place] [address] Care Team Providers Care Floorman Name Role Phone Denisse Ga MD Primary Care Provider UnavailChantelle Bautista MD Primary Care Provider UnavailPalma Perez MD Primary Care Provider Chantelle Marin MD Primary Care Provider Unavaila Betty Gutierrez DO Primary Care Provider Ibrahima Woo MD Primary Care Provider [phone] Naima Bearden MD Primary Care Prov ider [facility] Endocrine And Diabetes Unavailab le Unavailable Encounter Details Date Type Department Care Team Description 07/31/2019 Centrifugal Machine Tender Report Medical Records [address] [place] [address] Abstract, Provider Social History Tobacco Use Types [...] on filedocumented in this encounter Care Teams Floorman Relationship Specialty Start Date End Date Denisse Ga MD PCP - General Pediatrics 09/26/17 11/18/19 Chantelle Ayala MD PCP - General Pediatrics 11/19/19 01/04/21 Palma Zamudio MD PCP - General Internal Medicine 01/05/21 01/12/21 Chantelle Ayala MD PCP - General Pediatrics 01/13/21 03/22/21 Betty Alejandro DO PCP - General Pediatrics 03/23/21 08/20/21 Ibrahima Hill MD [address] [place] [address] PCP - General Pediatrics 08/21/21 10/20/21 Naima Bearden MD [address] [place] [phone] PCP - General Internal Medicine 10/21/21 [facility] Endocrine And Dumpcart Driver Pediatric Endocrinology 05/04/22 documented as of this encounter
--- OUTSIDE RECORDS SUMMARY | 2024-05-09 02:05 | XMS_ITS | Encounter Summary ---
Author Organization [facility] Address [address] [place] [address] Care Team Providers Care Physical Therapy Teacher Name Role Phone Julianne Tsang MD Primary Care Provider UnavailDenisse Elmore MD Primary Care Provider UnavailChantelle Bautista MD Primary Care Provider Unavaila Palma Ruiz MD Primary Care Provider Chantelle Marin MD Primary Care Provider Unavaila Betty Gutierrez DO Primary Care Provider Ibrahima Woo MD Primary Care Provider [phone] Naima Bearden MD Primary Care Prov ider [facility] Endocrine And Diabetes Unavailab le Unavailable Encounter Details Date Type Department Care Team Description 02/05/2014 Senior Support Analyst Report Medical Records [address] [place] [address] [facility] Children's Social History Tobacco Use Types [...] on filedocumented in this encounter Care Teams Physical Therapy Teacher Relationship Specialty Start Date End Date Julianne [...] Pediatrics 03/23/21 08/20/21 Ibrahima Hill MD [address] [place] [address] PCP - General Pediatrics 08/21/21 10/20/21 Naima Bearden MD [address] [place] [address] PCP - General Internal Medicine 10/21/21 [facility] Endocrine And Cleaning And Maintenance Worker Pediatric Endocrinology 05/04/22 documented as of this encounter
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
--- OUTSIDE RECORDS SUMMARY | 2024-05-09 02:05 | XMS_ITS | Encounter Summary ---
Author Organization [facility] Address [address] [place] [address] Care Team Providers Care Websphere Portal Developer Name Role Phone Julianne Tsang MD Primary Care Provider UnavailDenisse Elmore MD Primary Care Provider Unavailab Chantelle Fuentes MD Primary Care Provider Unavaila Palma Ruiz MD Primary Care Provider Chantelle Marin MD Primary Care Provider Unavaila Betty Gutierrez DO Primary Care Provider Ibrahima Woo MD Primary Care Provider Naima Bearden MD Primary Care Prov ider [facility] Endocrine And Diabetes Unavailab le Unavailable Reason for Visit * Reason Onset Date Comments Form 08/02/2013 Encounter Details Date Type Department Care Team Description 08/02/2013 Telephone [facility] - [address] [address] Dora Miller RNCPNP Form Social History Tobacco [...] * Telephone Encounter - NORAH Gardiner - 08/03/2013 1:02 PM EDT Form completed * Telephone Encounter - Brennan Chinchilla - 08/02/2013 4:21 PM EDT Pediatric Form Request Type of form: [facility] form placed in providers forms folder Date of last physical: 04/20/12 Does patient want: Fax to [phone] [employer] per step dad documented in this encounter Plan of Treatment Not on file documented as of this encounter Visit Diagnoses Not on filedocumented in this encounter Care Teams Websphere Portal Developer Relationship Specialty Start Date End Date Julianne Tsang MD PCP - General 01 09/25/17 Denisse Ga MD PCP - General Pediatrics 09/26/17 11/18/19 Chantelle Ayala MD PCP - General Pediatrics 11/19/19 01/04/21 Palma Zamudio MD PCP - General Internal Medicine 01/05/21 01/12/21 Chantelle Ayala MD PCP - General Pediatrics 01/13/21 03/22/21 Betty Alejandro DO PCP - General Pediatrics 03/23/21 08/20/21 Ibrahima Hill MD [address] [place] [address] PCP - General Pediatrics 08/21/21 10/20/21 Naima Bearden MD [address] [place] [address] PCP - General Internal Medicine 10/21/21 [facility] Endocrine And Cylinder Batcher Pediatric Endocrinology 05/04/22 documented as of this encounter
--- OUTSIDE RECORDS SUMMARY | 2024-05-09 02:05 | XMS_ITS | Encounter Summary ---
Author Organization [facility] Address [address] [facility] [place] [facility] [place] [address] Care Team Providers Care Utilities Operator Name Role Phone Chantelle Ayala MD Primary Care Provider UnavailPalma Perez MD Primary Care Provider Chantelle Marin MD Primary Care Provider Unavaila Betty Gutierrez DO Primary Care Provider UnaIbrahima Thompson MD Primary Care Provider [phone] Naima Bearden MD Primary Care Prov ider [facility] Endocrine And Diabetes Unavailab le Unavailable Encounter Details Date Type Department Care Team Description 12/26/2019 Hot Top Liner Report Medical Records [address] [place] [address] Josiane Leija Social History Tobacco Use Types Packs/Day Years [...] have Coronavirus / COVID-19? No / Unsure 12/25/2019 12:14 PM EDT documented as of this encounter Plan of Treatment Not on file documented as of this encounter Visit Diagnoses Not on filedocumented in this encounter Care Teams Utilities Operator Relationship Specialty Start Date End Date Chantelle Ayala MD PCP - General Pediatrics 11/19/19 01/04/21 Palma Zamudio MD PCP - General Internal Medicine 01/05/21 01/12/21 Chantelle Ayala MD PCP - General Pediatrics 01/13/21 03/22/21 Betty Alejandro DO PCP - General Pediatrics 03/23/21 08/20/21 Ibrahima Hill MD [address] [place] [address] PCP - General Pediatrics 08/21/21 10/20/21 Naima Bearden MD [address] [place] [address] PCP - General Internal Medicine 10/21/21 [facility] Endocrine And Concrete Inspector Pediatric Endocrinology 05/04/22 documented as of this encounter
--- OUTSIDE RECORDS SUMMARY | 2024-05-09 02:05 | XMS_ITS | Encounter Summary ---
Author Organization [facility] Address [address] [place] [address] Care Team Providers Care Inspector Outside Production Name Role Phone Julianne Tsang MD Primary Care Provider UnavailDenisse Elmore MD Primary Care Provider UnavailChantelle Bautista MD Primary Care Provider Unavaila Palma Ruiz MD Primary Care Provider Chantelle Marin MD Primary Care Provider Unavaila Betty Gutierrez DO Primary Care Provider Ibrahima Woo MD Primary Care Provider [phone] Naima Bearden MD Primary Care Prov ider [facility] Endocrine And Diabetes Unavailab le Unavailable Encounter Details Date Type Department Care Team Description 08/16/2013 Hair Rooting Machine Operator Report Medical Records [address] [place] [address] [facility] Children's Social History [...] on filedocumented in this encounter Care Teams Inspector Outside Production Relationship Specialty Start Date End Date Julianne Tsang MD PCP - General 01 09/25/17 Denisse Ga MD PCP - General Pediatrics 09/26/17 11/18/19 Chantelle Ayala MD PCP - General Pediatrics 11/19/19 01/04/21 Palma Zamudio MD PCP - General Internal Medicine 01/05/21 01/12/21 Chantelle Ayala MD PCP - General Pediatrics 01/13/21 03/22/21 Betty Alejandro DO PCP - General Pediatrics 03/23/21 08/20/21 Ibrahima Hill MD [address] [place] [address] PCP - General Pediatrics 08/21/21 10/20/21 Naima Bearden MD [address] [place] [address] PCP - General Internal Medicine 10/21/21 [facility] Endocrine And Tailoring Teacher Pediatric Endocrinology 05/04/22 documented as of this encounter
--- OUTSIDE RECORDS SUMMARY | 2024-05-09 02:05 | XMS_ITS | Encounter Summary ---
Author Organization [facility] Address [address] [place] [address] Care Team Providers Care Ibm Mainframe Systems Programmer Name Role Phone Naima Bearden MD Primary Care Prov ider [facility] Endocrine And Diabetes Unavailab le Unavailable Encounter Details Date Type Department Care Team Description 09/19/2023 Orders Only Medical Records [address] [place] [address] [id number] Social History Tobacco Use Types Packs/Day Years [...] on file documented as of this encounter Procedures Procedure Name Priority Date/Time Associated Diagnosis Comments OUTSIDE PATHOLOGY Routine 09/11/2023 documented in this encounter Results * OUTSIDE PATHOLOGY (09/11/2023) [facility] OUTSIDE LAB documented in this encounter Visit Diagnoses Not on filedocumented in this encounter Care Teams Ibm Mainframe Systems Programmer Relationship Specialty Start Date End Date Naima Bearden MD [address] [place] [id number] PCP - General Internal Medicine 10/21/21 Group, [facility] Endocrine And Diet Tech Pediatric Endocrinology 05/04/22 documented as of this encounter
--- OUTSIDE RECORDS SUMMARY | 2024-05-09 02:05 | XMS_ITS | Encounter Summary ---
Author Organization [facility] Address [address] [facility] [place] [address] Care Team Providers Care Immunology Specialist Name Role Phone Denisse Ga MD Primary Care Provider UnavailChantelle Bautista MD Primary Care Provider UnavailPalma Perez MD Primary Care Provider Chantelle Marin MD Primary Care Provider Unavaila Betty Gutierrez DO Primary Care Provider Ibrahima Woo MD Primary Care Provider [phone] Naima Bearden MD Primary Care Prov ider [facility] Endocrine And Diabetes Unavailab le Unavailable Encounter Details Date Type Department Care Team Description 07/12/2018 Hot Strip Mill Supervisor Report Medical Records [address] [place] [address] Bharat Galdamez Social History Tobacco Use Types [...] on filedocumented in this encounter Care Teams Immunology Specialist Relationship Specialty Start Date End Date Denisse Ga MD PCP - General Pediatrics 09/26/17 11/18/19 Chantelle Ayala MD PCP - General Pediatrics 11/19/19 01/04/21 Palma Zamudio MD PCP - General Internal Medicine 01/05/21 01/12/21 Chantelle Ayala MD PCP - General Pediatrics 01/13/21 03/22/21 Betty Alejandro DO PCP - General Pediatrics 03/23/21 08/20/21 Ibrahima Hill MD [address] [place] [address] PCP - General Pediatrics 08/21/21 10/20/21 Naima Bearden MD [address] [place] [address] PCP - General Internal Medicine 10/21/21 [facility] Endocrine And Tearer Pediatric Endocrinology 05/04/22 documented as of this encounter
--- OUTSIDE RECORDS SUMMARY | 2024-05-09 02:05 | XMS_ITS | Data Portability ---
Author Organization [place] [facility], Allergy Address [address] [place] [id number] Care Team Providers Care Entry Tech Name Role Phone OVI SANTIZO Primary Care Provider [phone] OVI SANTIZO Referring Provider Assessment Encounter Date Assessment Date Assessment LastModified by Organization Details LastModified Time 04/24/2024 04/24/2024 23 year old fema scott with history of migraine presents for evaluation [...] + total panel, IA, serum 2024 025 [place] [facility] (Centralized Electronic Ordering - All Locations), Patient Can Go To The Location Of Their Choice, [facility] 04/25/2024 11:16:51 Referral None recorded. Procedures None recorded. Surgeries None recorded. Imaging MRI, brain + internal auditory canal, w/wo contrast - MRI, BRAIN + INTERNAL AUDITORY CANAL, W/WO CONTRAST 2024 025 [facility] ([facility]), [address] [place] [address], [address], 05/03/2024 14:31:10 Medication Orders Flonase Allergy Relief 50 mcg/actua tion nasal spray,rashaun pension 2024 025 [place] [id number], [address] [place], [address], 04/24/2024 14:35:45 Patient TargetsNo targets recorded. Patient InstructionsNo instructions recorded. Reason for Referral None Reported. Results Created Date Observation Date Name Description Value Unit Range Abnormal Flag Note LastModifiedBy Organization Detail LastModifiedTime 04/24/19 25 04/25/2024 LYME DISEA SE SEROL OGY W/REF MORTEZA lyme total antibody carmella Negati ve negati ve Lyme antib odies not detec alanna. Refle x testi ng is not indic ated. No labor atory evide nce of infec tion with B. burgd orfer i (Lyme disea se). Negat giselle resul ts may occur in patie nts recen tly infec alanna (less than or equal to 14 days) with B. burgd orfer i. If recen t infec tion is suspe cted, repea t testi ng on a new sampl e colle cted in 7 to 14 days is recom cecil d. Not Available [facility] ([facility]) [address] [facility], [place], [address], 04/25/2024 11:16:51 04/24/19 audio gram No observ ation record ed. BARCODE Not Available 2024 15:18:28 05/03/19 25 04/30/2024 MRI, brain + inter nal audit ory canal , w/wo contr ast No observ ation record ed. [facility] [place] [address] [place], [address], 05/03/2024 14:31:10 Result Notes None recorded. Problems Name Problem SNOMED Code Status Onset Date Resolution Date Notes Provider Name and Address Organization Details Recorded Time Abnormal auditory perception 05951287 Active 2024 Aretha cordero [place] - [facility] 14:03:44 Disorder of left Eustachian tube 6438652727613 109 Active 2024 TOMMIE BRUEC PA-C [address] [place] [address], [place], [phone], 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 - [facility] 15:34:01 Problem Notes None recorded. Procedures Surgical History Date Name Laterality Status Provider Name and Address Organization Details Recorded Time 04/24/2024 Comp Audio with Tymps (10992 & 69230) completed Aretha Tiwari [place] - [facility] 04/24/2024 14:03:30 Imaging Results Imaging Date Name Status [facility] Details LastModified Time 04/24/2024 audiogram completed BAR[facility] Information no t available 04/24/2024 15:18:28 04/30/2024 MRI, brain + internal auditory canal, w/wo contrast active [facility] [place] [address] [place], [address], 05/03/2024 14:31:10 Procedure Notes None recorded. 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 TOMMIE BRUCE PA-C [address] [place] [address], [phone], [place] - [facility] 04/24/2024 16:14:36 OBGyn Episode No OBEpisode recorded.
== END 2024-05-09 02:07 | disposition left against medical advice (07) ==
LOC: HO.ED 05-09 02:02
PROVIDERS: Physician Assistant Medical; Emergency Provider Emergency Medicine
DX: R42 Dizziness and giddiness (principal); H91.91 Unspecified hearing loss, right ear
CPT/HCPCS: 0241U; 36415; 80048; 80076; 83735; 84484; 84702; 85025; 93005; 99283

== ENCOUNTER → 2024-05-08 16:36 | Outpatient (BNV) | payer OTHER, SELFPAY | PROVIDERS: Emergency Provider Emergency Medicine; Visit Provider Internal Medicine Cardiovascular Disease | DX: R00.0 Tachycardia, unspecified (principal) | CPT/HCPCS: 93010 ==

== ENCOUNTER 2025-02-23 21:45 | Emergency (ER) | payer OTHER, SELFPAY ==
[2025-02-23 22:08] VITALS: BP 114/70; PULSE 104; RESP 16; TEMP 36.6; O2SAT 97; BMI 42.5
[2025-02-23 22:41] LABS: MANUAL DIFF FLAG NO
[2025-02-23 22:42] LABS: Hematocrit 34.0 % (37.0-47.0); Hemoglobin 10.7 g/dl (12.0-16.0); Imm Gran Abs Auto 0.04 X10*3/uL (0.00-0.03); Imm Gran Pct Auto 0.4 % (0.0-0.4); Lymphocytes Absolute Auto 2.1 X10*3/uL (1.2-4.9); Mean Corpuscular HGB Conc 31.5 g/dl (31.0-35.0); Mean Corpuscular Hemoglobin 23.5 pg (27.0-33.0); Mean Corpuscular Volume 74.7 fL (80.0-98.0); NRBC Abs Auto 0.000 X10*3/uL (0.0-0.012); NRBC Pct Auto 0.0 /100WBC (0.0-0.2); Platelet Count 342 X10*3/uL (160-400); Red Blood Count 4.55 X10*6/uL (4.20-5.50); White Blood Count 9.3 X10*3/uL (4.8-10.8)
[2025-02-23 23:03] LABS: Alanine Aminotransferase 16 U/L (0-31); Albumin Level 3.9 g/dL (3.5-5.0); Alkaline Phosphatase 102 U/L (39-117); Anion Gap 13 (12-20); Aspartate Amino Transferase 17 U/L (5-31); Blood Urea Nitrogen 13 mg/dL (9-16); Calcium 8.8 mg/dL (8.4-10.2); Carbon Dioxide 23 mmol/L (22-29); Chloride 110 mmol/L (96-108); Creatinine Clr Calc Pharmacy 97.9; Estimated Glomerular Filt Rate > 60; Potassium 4.0 mmol/L (3.3-5.1); Sodium 142 mmol/L (135-145); Total Protein 7.0 g/dL (6.5-8.0)
--- OUTSIDE RECORDS SUMMARY | 2025-02-23 23:32 | XMS_ITS | Encounter Summary ---
Author Organization [facility] Address [address] [place] [address] [place] [phone] Phone Care Team Providers Care Abstracter Name Role Phone Naima Carr MD Primary Care Prov ider Encounter Details Date Type Department Care Team (Late st Contact Info) Description 09/11/2023 Procedure Pass [facility], Ct Scan - [address] [address] Social History Tobacco Use Types Packs/Day Years Used Date Smoking Tobacco: Never Smokeless Tobacco: Never Alcohol Use Standard Drinks/Week Comments Not Currently 0 (1 standard drink = 0.6 oz pur e alcohol) Education Answer Date Recorded Are you interested in more education? Not on davis e 07/03/2022 Are you concerned about learning? Not on file 07/03/2022 No 07/03/2022 No 07/03/2022 Digital Access Answer Date Recorded No 07/28/2022 No 07/28/2022 Reliable internet access at home? Not on file 07/28/2022 Device with a working camera? Not on file Intimate Partner Violence Answer Date R ecorded Are you denied basic needs s uch as food, clothing, or medical care? No 09/11/2023 In the past 12 months have y ou been in a relationship with a person who hurts, threatens, or tries to control you? No 09/11/2023 Are you denied basic needs s uch as food, clothing, or medical care? No 09/11/2023 In the past 12 months have y ou been in a relationship with a person who hurts, threatens, or tries to control you? No 09/11/2023 Comments No Sex and Gender Information Value Date Recorded Sex Assigned at Female 01/05/2022 7:38 PM EDT Legal Sex Female 10:45 PM EDT Gender Identity Female 01/05/2022 7:38 PM EDT Sexual Orientation Don't know 09/11/2023 10 :09 AM EDT documented as of this encounter Plan of Treatment Not on file documented as of this encounter Visit Diagnoses Not on filedocumented in this encounter Care Teams Abstracter Relationship Specialty Start Date End Date Naima Carr MD [address] [place] [address] PCP - General Internal Medicine 12/02/22 documented as of this encounter Additional Source Comments The information contained in this document represents components of the legal health record. It is not the complete legal health record.[facility]
--- OUTSIDE RECORDS SUMMARY | 2025-02-23 23:32 | XMS_ITS | Encounter Summary ---
Author Organization [facility] Address [address] [place] [address] [place] [phone] Phone Care Team Providers Care Hay Buckler Name Role Phone Ibrahima Hill MD Primary Care Provider [phone] Naima Carr MD Primary Care Prov ider Encounter Details Date Type Department Care Team (Late st Contact Info) Description 10/13/2021 Procedure Pass [facility], [address] [address] Social History Tobacco Use Types Packs/Day Years Used Date Smoking Tobacco: Never Smokeless Tobacco: Never Alcohol Use Standard Drinks/Week Comments Not Currently 0 (1 standard drink = 0.6 oz pur e alcohol) Comments Unknown Sex and Gender Information Value Date Recorded Sex Assigned at Female 01/05/2022 7:38 PM EDT Legal Sex Female 10:45 PM EDT Gender Identity Female 01/05/2022 7:38 PM EDT Sexual Orientation Don't know 09/11/2023 10 :09 AM EDT documented as of this encounter Plan of Treatment Not on file documented as of this encounter Visit Diagnoses Not on filedocumented in this encounter Additional Health Concerns Infection Onset Date Last Indicated Resolved Time CoV-Risk 01/05/2022 01/05/2022 01/16/2022 6:52 AM EST CoV-Risk 02/17/2022 02/17/2022 02/28/2022 1:23 AM EST documented as of this encounter Care Teams Hay Buckler Relationship Specialty Start Date End Date Ibrahima Hill MD [address] [place] [address] PCP - General 10/09/21 12/01/22 Naima Carr MD [address] [place] [address] PCP - General Internal Medicine 12/02/22 documented as of this encounter Additional Source Comments The information contained in this document represents components of the legal health record. It is not the complete legal health record.[facility]
--- OUTSIDE RECORDS SUMMARY | 2025-02-23 23:32 | XMS_ITS | Clinical Summary ---
Author Organization [facility] Address [address] [place] [address] Phone Care Team Providers Care Congressional Assistant Name Role Phone Naima Carr MD Primary Care Prov ider Allergies Active Allergy Reactions Criticality Noted Date Comments Ampicillin-Sulbactam 10/16/2021 itchy rash at [facility] 8-22 Gluten 06/18/2014 Gluten Morphine 10/05/2018 Other Reaction(s): Hives/Urticaria Sulfa (Sulfonamide Antibiotics) 09/02/2008 Other Reaction(s): Rash/Dermatitis Sulfamethoxazole-Trimethop rim 04/15/2022 Medications levothyroxine (SYNTHROID, LEVOTHROID) 125 mcg tablet Take 1.5 Tablets by mouth daily. 4 Active atorvastatin (LIPITOR) 10 mg tablet Take 1 Tablet by mouth daily. 4 Active fluticasone HFA (Flovent HFA) 110 mcg/actuation inhaler INHALE 2 PUFFS INTO THE LUNGS TWICE A DAY 3 Active naproxen (NAPROSYN) 500 mg tablet Take 1 Tablet by mouth 2 times daily as needed for Pain (Take with food.) for up to 10 days. 3 Active albuterol HFA (PROAIR HFA ; PROVENTIL HFA ; VENTOLIN HFA) 90 mcg/actuation inhaler Inhale 2 Puffs into the lungs every 6 hours as needed for Cough or Wheezing. 3 Active insulin glargine (LANTUS) 100 unit/mL injection Inject 50 Units into the skin at bedtime as needed. Active cholecalciferol (VITAMIN D-3) 50 mcg (2,000 unit) capsule TAKE 1 CAPSULE EVERY DAY BY MOUTH 2 Active glucagon (Baqsimi) 3 mg/actuation nasal spray by Nasal route. Active acetone, urine, test strip by In Vitro route. Active ondansetron ODT (ZOFRAN-ODT) 4 mg disintegrating tablet Take 4 mg by mouth every 8 hours as needed. Active famotidine (PEPCID) 20 mg tablet Take 20 mg by mouth 2 times daily. Active calcium carbonate (TUMS) 500 mg (200 mg elemental calcium) chewable tablet Take 1 tablet by mouth daily. Active pantoprazole (PROTONIX) 40 mg packet Take 40 mg by mouth. Active dapsone (ACZONE) 5 % topical gel Apply 1 Squirt topically 2 times daily. 0 Active inhalational spacing device (Aerochamber MV) inhaler 1 Container by Does not apply route daily. 9 Active insulin lispro 100 unit/mL injection Inject into the skin 4 times daily (before meals and nightly). Active clobetasoL 0.05 % shampoo Clobetasol Propionate 0.05 % Shampoo: Apply 5 mL topically three times a week. Apply to dry hair, let sit for 10 minutes, lather then rinse out completely. - Apply externally Active Dexcom G6 Sensor device USE FOR CONTINUOUS GLUCOSE MONITORING. CHANGE EVERY 10 DAYS. E10.65 4 Active cetirizine (ZyrTEC) 10 mg tablet TAKE 1 TABLET BY MOUTH 1 TIME EACH DAY. 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 A new referral was placed today. 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 09/26/19: genetics via telemedicine. 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 SEA[employer] SPECIALIST to identify Javier's syndrome and gains/ losses in genetic material including the SHOX gene. SEAFO[employer]IST results in 3-4 weeks. 11- needs f/u [...] f/u 1yr Patellar tendinitis of right knee 08/03/2018 Overview (12/12/2023): Last Assessment & Plan: 11 has f/u PT Vitamin D deficiency 04/12/2013 Overview (12/12/2023): Last Assessment & Plan: 6- Vit D level 18.5 Learning problem 08/15/2012 Overview (12/12/2023): Last Assessment & Plan: IEP for school Adjustment disorder with depressed mood 05/19/19 13 Overview (12/12/2023): Last Assessment & Plan: 01-25 therapist Jyotsna fournier [facility] Celiac disease 04/11/2012 Overview (12/12/2023): Last Assessment & Plan: 01-25 improved diet/zofran/tums/PEPCID 20 mg BID constipation/VitD,levothyroxine/pump for diabetes f/u 3 m.EGD if not better at next visit 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 Overview (12/12/2023): Last Assessment & Plan: levothyroxine dose 125 mcg/day f/u 3m DM type 1 (diabetes mellitus, type 1) 12/30/2010 Overview (12/12/2023): Multiple episodes DKA Last Assessment & Plan: repeat TFTs improve diet and increase physical activity f/u 3m Wheezing 07/17/2008 Overview (12/12/2023): Last Assessment & Plan: proair prn/with URIs Immunizations Immunization Administration Dates Next Due DTaP (Infanrix) 6wks to less than 7yo ,12/11/2002,03/29/2002,01/25,2001 PScS-EET-LNZ (Pentacel) 2mo to less than 5yo 12/11/2002,03/29/2002,01/25/2002,11/24 H1N1 Inj Preservative Free 05/20/2009,04/08/2009 HPV 9-valent (Gardisil) 9yo to less than 46yo 08/26/2015,10/29/2014 HPV, Quadrivalent 08/22/2014 Hepatitis B Pediatric (Enger ix B; Recombivax HB) to less than 20 yo 07/02/2002,2001,2001 IPV Inactivated polio (Ipol) 6wks and older 01/20/2006,03/29/2002,01/25/2002,11/24 Influenza Quadravalent, MDCK , 0.5ml, preservative free (Flucelvax) 6mo and older 12/13/2022 Influenza trivalent, 0.5mL, preservative free (Fluarix; FluLaval; Fluzone) ages 6mo and older (Afluria) 3 years and older 12/19/2019,12/11/2014,01/10/2014 Influenza trivalent, with pr eservative (Fluzone; Afluria) 6mo and older 01/26/2021,12/25/2012,11/18/2011,12/22,11/27/2009,04/08/2009,02/27/2008 ,02/23/2007,01/20/2006 MMR, measles mumps and rubel la Live (Priorix; M-M-R II) 12mo and older 01/20/2006,09/25/2002 Meningococcal MCV4P 09/29/2017,08/20/2013 PPD Test 12/11/2003 Pfizer SARS-CoV-2 COVID-19, mRNA, LNP-S, preservative free 07/31/2020,07/10/2020 Pneumococcal Conjugate Vacci ne, 7 Valent 09/25/2002,03/29/2002,01/25/2002,11/24 Pneumococcal conjugate 20 va lent (Prevnar 20, PCV 20) 2mo and older 08/19/2022 Tdap Tetanus diptheria acell ular pertussis (Boostrix; Adacel) 7yo and older 08/20/2013 Varicella live (Varivax) 12m o and older 02/23/2007,09/25/2002 Surgical History Surgery Date Site/Laterality Comments APPENDECTOMY 09/11/2023 PROCEDURE: HISTORICAL APPENDECTOMY; COMMENT: Farooq Perez Medical History Medical History Date Comments Unspecified visual loss 01/20/2006 DX:Unspe cified visual loss Obesity 12/22/2010 DX:Obesity Celiac disease 04/11/2012 DX:Celiac diseas e Adjustment disorder with dep ressed mood 05/18/2012 DX:Adjustment disorder with depressed mood Learning problem 08/15/2012 DX:Learning pro blem; COMMENT: 5-13 PSYCHO-educational assessment [employer] Qualified IEP for math Vitamin D deficiency 04/12/2013 DX:Vitamin D deficiency Historical Medical DX 08/01/2013 DX:Type 1 diabetes mellitus with ketoacidosis; COMMENT: 5-14 admitted PICU for DKA on insulin drip and monitoring of electrolytes and serial abdominal exams. 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 DX:Neena jill's thyroiditis; COMMENT: 1-13 Monitor thyroid function 4-13 [facility] TSH high at 12.24(range 0.4-4.0)nl freeT4 .72 levothyroxine 62.5mcg daily take 1/2tab po once a day 6-14: normal TSH and free T4 ordered by ped endo at [facility] Constipation 06/09/2016 DX:Constipation; COMMENT: 3-17 rectal bldg seen /functional miralax 1 cap bid,senna 1 tab bid if needed F/u 3m Patellar tendinitis of right knee 08/03/2018 DX:Patellar tendinitis of right knee; COMMENT: 5-19 knee pain x2-3m seen Sesar Kruger/xray done/no labwork (NO chronic inflammatory arthropathy)advised naprosyn 500 mg bid x 2 weeks f/u 3m Elevated cholesterol 08/14/2019 DX:Elevated cholesterol; COMMENT: 6-20.chol 214,triglycerides 125,LDL 138,non HDL 163 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 [facility] Pain in joint 09/05/2019 DX:Pain in joint ; COMMENT: 08-24 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 DX:Madelung 's deformity DiGeorge's syndrome ([facility] V24, [facility] V28) 06/11/2021 DX:DiGeorge's syndrome ([facility]) DM type 1 (diabetes mellitus , type 1) ([facility] V24, [facility] V28) 12/30/2010 DX:DM type 1 (diabetes holli itus, type 1) ([facility]); COMMENT: Multiple episodes DKA Hypothyroidism 01/11/2022 DX:Hypothyroidis m Family History Medical History Relation Name Comments [...] drink = 0.6 oz pur e alcohol) Housing Instability Answer Date Recorde d Are you worried that in the next 2 months you may not have stable housing? No 02/07/2024 Food Access & Nutrition Answer Date Rec orded Do you have access to a vari ety of food including fruits and vegetables? Yes 02/07/2024 Access to Healthcare Answer Date Record ed Within the last 3 months, ho w many times did you visit the emergency department for your medical care? 2 02/07/2024 Health Literacy Answer Date Recorded How often do you need to hav e someone help you when you read instructions, pamphlets, or other written material from your doctor or pharmacy? Often 02/07/2024 Caregiver: How often do you need to have someone help you when you read instructions, pamphlets, or other written material from your doctor or pharmacy? Not on file 02/07/2024 Financial Risk Answer Date Recorded How hard is it for you to pa y for the very basics like food, housing, medical care, and air conditioning / heating? Very hard 02/07/2024 Transportation Answer Date Recorded Has the lack of transportati on kept you from meetings, work, or from getting things needed for daily living? Patient declined 02/07/2024 Has the lack of transportati on kept you from medical appointments or from getting medications? Yes 02/07/2024 Social Isolation Answer Date Recorded How often do you feel lonely or isolated from those around you? Sometimes 02/07/2024 Food Risk Answer Date Recorded Within the past 12 months we worried whether our food would run out before we got money to buy more. Sometimes true 024 Within the past 12 months th e food we bought just didn't last and we didn't have money to get more. Sometimes true 02/07/2024 Dependent Care Answer Date Recorded Do you need help finding or paying for care for your loved ones. For example, child and family counselor or elderly care for an older adult? No 02/07/2024 Education Answer Date Recorded Do you think completing more education or training, like finishing a GED, going to college, or learning a trade, would be helpful for you? Yes 02/07/2024 Employment and Income Answer Date Recor ded During the last four weeks, have you been actively looking for work? No 02/07/2024 Living Situation Answer Date Recorded What is your living situation? Unrecognized valu e 02/07/2024 Comments Unknown Sex and Gender Information Value Date Recorded Sex Assigned at Female 03/06/2024 7:51 AM EST Legal Sex Female 2:16 AM EST Gender Identity Female 03/06/2024 7:51 AM EST Sexual Orientation Not on file Last Filed Vital Signs Vital Sign Reading Time Taken Comments Blood Pressure 100/73 08/22/2024 3:29 PM EDT Pulse 92 08/22/2024 3:29 PM EDT Temperature 36.7 C (98 F) 08/22/2024 3:29 PM EDT Respiratory Rate 20 08/22/2024 3:29 PM EDT Oxygen Saturation 98% 08/22/2024 3:29 PM EDT Inhaled Oxygen Concentration - - Weight 103 kg (226 lb) 08/22/2024 3:29 PM EDT Height 154.9 cm (5' 1 ) 06/13/2024 7:52 AM EDT Body Mass Index 42.7 06/13/2024 7:52 AM EDT Plan of Treatment Health Maintenance Due Date Last Done Comments Diabetes: Annual Retina Eye Exam 09/24/2011 Meningococcal B Vaccine (1 of 2 - Standard) 2017 HIV Screening 02/07/2022 Hepatitis C Screening 02/07/2022 Cervical Cancer Screening: Pap Smear 2022 Diabetes: Annual Urine Albumin-Creatinine Ratio (uACR) 12/14/2023 12/13/2022 Diabetes: Annual Foot Exam 12/14/2023 12/13/2022 Gonorrhea/Chlamydia Screening 12/14/2023 12/13/2022 Depression Screening 03/07/2024 02/07/2024, 07/20/19 Diabetes: Blood Sugar Control Test (HGBA1C) 05/04/2024 11/02/2023, 11/02/2023, 07/20/2023 Diabetes: Annual GFR (Glomerular Filtration Rate) 11/01/2024 11/02/2023, 11/02/2023, 10/12/2021, Additional history exists Influenza Vaccine (#1) 2024 , 01/26/2021, 12/19/2019, Additional history exists Social Influencers of Health Screening 02/06/2025 02/07/2024, 07/20/2023 Cholesterol Screening (Lipid Panel) 11/01/2028 11/02/2023, 07/20/2023 DTaP,Tdap,and Td Vaccines (8 - Td or Tdap) 11/01/2033 11/02/2023, 08/20/2013, 01/20/2006, Additional history exists RSV Immunization Adult Patients (1 - 1-dose 75+ series) 2076 Hepatitis B Vaccines Completed 07/02/2002, 2001, 2001 HIB Vaccines Completed 12/11/2002, 09/2002, 03/29/2002, Additional history exists IPV Vaccines Completed 01/20/2006, 09/2002, 03/29/2002, Additional history exists MMR Vaccines Completed 01/20/2006, 09/25/2002 Varicella Vaccines Completed 02/23/2007, 09/25/2002 HPV Vaccines Completed 08/26/2015, 10/06, 08/22/2014 Meningococcal ACWY Vaccine Completed 09/29/2017, COVID-19 Vaccine Discontinued 07/31/2020, 07/10/2020 Pneumococcal Vaccine: Pediatrics (0 to 5 Years) and At-Risk Patients (6 to 49 Years) Completed 08/19/2022, 09/25/2002, 03/29/2002, Additional history exists Hepatitis A Vaccines Aged Out No long er eligible based on patient's age to complete this topic RSV Immunization Patients Under 20 months Aged Out No longer eligible based on patient's age to complete this topic Goals Goal Patient Goal Type Associated Problems Recent Progress Patient-Stated? 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 Procedures Procedure Name Priority Date/Time Associated Diagnosis Comments ANNUAL BMP BLOOD TEST Routine 11/02/2023 HEMOGLOBIN A1C Routine 11/02/2023 LIPID PANEL Routine 11/02/2023 DEPRESSION SCREENING Routine 07/20/2023 URINE ALBUMIN CREATININE RATIO Routine 12/13/2022 DIABETES FOOT EXAM Routine 12/13/2022 GONORRHEA/CHLAMYDIA SCRREENING Routine 12/13/2022 from Last 3 Months or Most Recently Relevant to Health Maintenance Results * Annual BMP Blood Test (11/02/2023) Pathologist [facility] Annual BMP Blood Test Abstracted Historical Provider HEALTH MAINTENANCE Final Result * (ABNORMAL) Hemoglobin A1c (11/02/2023) Pathologist [facility] Hemoglobin A1C 8.1(A) <=6.5 % Blood Venous blood specimen / Unknown Historical Provider LAB BLOOD ORDERABLES Violetta l Result * (ABNORMAL) Lipid panel (11/02/2023) Pathologist [facility] LDL/HDL Ratio 5(A) 0 - 4 Triglycerides 151(A) 0 - 150 mg/dL Cholesterol 239(A) 0 - 200 mg/dL HDL 44 >=40 mg/dL LDL Cholesterol 165(A) 0 - 100 mg/dL Blood Venous blood specimen / Unknown Result [facility] Provider LAB BLOOD ORDERABLES Violetta l Result * Depression Screening (07/20/2023) Pathologist [facility] Depression Screening Abstracted Result [facility] Provider HEALTH MAINTENANCE Final Result * Urine Albumin Creatinine Ratio (12/13/2022) Pathologist [facility] Urine Albumin Creatinine Ratio Abstracted Result [facility] Provider HEALTH MAINTENANCE Final Result * Gonorrhea/Chlamydia Screening (12/13/2022) Pathologist [facility] Gonorrhea/Chla mydia Screening Abstracted Result [facility] Provider HEALTH MAINTENANCE Final Result * Diabetes Foot Exam (12/13/2022) Pathologist [facility] Diabetes: Annual Foot Exam Abstracted Result [facility] Provider HEALTH MAINTENANCE Final Result from Last 3 Months or Most Recently Relevant to Health Maintenance Insurance [facility] Care Teams Congressional Assistant Relationship Specialty Start Date End Date Naima Carr MD [address] [place] [phone] PCP - General Internal Medicine 01/23/24
--- OUTSIDE RECORDS SUMMARY | 2025-02-23 23:32 | XMS_ITS | Clinical Summary ---
Author Organization [facility] Address [address] [place] [address] [place] [address] Phone Care Team Providers Care Upholstery Handler Name Role Phone Naima Carr MD Primary Care Prov ider Allergies Active Allergy Reactions Criticality Noted Date Comments Ampicillin-Sulbactam 10/16/2021 itchy rash at [facility] 8-22 Gluten Protein 10/09/2021 Morphine 10/09/2021 Hives Sulfa (Sulfonamide Antibiotics) Rash Low 09/02/2008 Medications cholecalciferol (VITAMIN D3) 25 MCG (1,000 unit) tablet Take 1,000 Units by mouth daily. Pt unsure of doseage Active atorvastatin (LIPITOR) 20 MG tablet Take 20 mg by mouth daily. Active insulin lispro (HUMALOG U-100 INSULIN SUBQ) Inject under the skin. Via insulin pump Active albuterol 90 mcg/actuation inhaler Inhale 2 puffs into the lungs every 4 (four) hours as needed for wheezing. Active fluticasone propionate (FLOVENT HFA) 44 mcg/actuation inhaler Inhale 2 puffs into the lungs as needed. Pt unsure of doseage Active ibuprofen (ADVIL,MOTRIN) 200 MG tablet Take 200 mg by mouth every 6 (six) hours as needed for pain (specific location in comments). Active carboxymethylce llulose (REFRESH LIQUIGEL) 1 % ophthalmic solution Place 1-2 drops into the left eye 4 (four) times a day as needed (Conrad's palsy, incomplete closure left eye). 30 mL 12 2 Active clindamycin (CLEOCIN) 300 MG capsule Take 1 capsule (300 mg total) by mouth every 6 (six) hours. 40 capsule 2 Active Additional Information Patient taking differently:300 mg OralAs needed, Reported on 09/19/2023 gabapentin (NEURONTIN) 100 MG capsule Take 1 capsule (100 mg total) by mouth 3 (three) times a day. 30 capsule 2 Active benzonatate (TESSALON) 100 MG capsule Take 1 capsule (100 mg total) by mouth 3 (three) times a day as needed for cough. 20 capsule 2 Active acetaminophen (TYLENOL) 325 mg tablet Take 1-2 tablets (325-650 mg total) by mouth every 6 (six) hours as needed (mild - moderate pain). 4 Active docusate sodium (COLACE) 100 MG capsule Take 1 capsule (100 mg total) by mouth 2 (two) times a day. When taking pain medications 4 Active glucagon (BAQSIMI) 3 mg/actuation [place] by Nasal route. Acti ve insulin glargine (LANTUS) 100 unit/mL injection vial Inject 50 Units under the skin. 2 Active famotidine (PEPCID) 20 MG tablet Take 20 mg by mouth as needed. Active calcium carbonate 500 mg (200 mg elemental) chewable tablet Take 1 tablet by mouth as needed. Active FREESTYLE LITE Strp strips IDDM- USE TO CHECK BLOOD SUGAR 3-4X A DAY WHEN PUMP IS NOT WORKING. 4 Active levothyroxine (SYNTHROID, LEVOTHROID) 75 MCG tablet Take 75 mcg by mouth. 2 Active meclizine (ANTIVERT) 25 mg tablet Take 1 tablet (25 mg total) by mouth 3 (three) times a day as needed for dizziness. 30 tablet 5 Active Active Problems Problem Noted Date Diagnosed Date S/P laparoscopic appendectomy 09/19/2023 Facial cellulitis 10/10/2021 Assessment & Plan (10/13/2021 1:12 PM EDT): Patient developed an itchy rash yesterday late afternoon believed secondary to her antibiotic Unasyn. This was stopped, and she was started on Levaquin and vancomycin intravenously. This morning she feels like the swelling is still there however she is noted a facial droop and weakness on the left side. Her exam was consistent with Conrad's palsy. Telemetry neuro was consulted, and MRI imaging of this area, CISS protocol was performed. Preliminary report feels there is no abscess or abnormality seen. Formal reading by radiology still pending. Discussed with telemetry neuro after imaging results are reviewed. Feels must be localized irritation of facial nerve from her infection. Recommends continuing antibiotics. No role for steroids or antiviral agents. Should patient start running a fever, develop mental status changes then she will need a lumbar puncture for further acute management decisions DM type 1 (diabetes mellitus, type 1) 10/10/2021 Assessment & Plan (10/13/2021 12:46 PM EDT): Patient with insulin pump, reduced her basal dose after mild hypoglycemic episode yesterday morning. Blood sugars much improved today running in the low to mid 100 range without any episodes hypoglycemia Asthma 10/10/2021 Assessment & Plan (10/10/2021 4:33 AM EDT): -No SOB, no wheezing -Continue Flovent and as needed albuterol Family History Medical History Relation Comments Diabetes Father Diabetes Mother Relation Status Comments Father Mother Social History Tobacco Use Types Packs/Day Years [...] as food, clothing, or medical care? No 05/09/2024 In the past 12 months have y ou been in a relationship with a person who hurts, threatens, or tries to control you? No 05/09/2024 Are you denied basic needs s uch as food, clothing, or medical care? No 05/09/2024 In the past 12 months have y ou been in a relationship with a person who hurts, threatens, or tries to control you? No 05/09/2024 Comments No Sex and Gender Information Value Date Recorded Sex Assigned at Female 01/05/2022 7:38 PM EDT Legal Sex Female 10:45 PM EDT Gender Identity Female 01/05/2022 7:38 PM EDT Sexual Orientation Don't know 09/11/2023 10 :09 AM EDT Last Filed Vital Signs Vital Sign Reading Time Taken Comments Blood Pressure 120/88 05/09/2024 9:12 AM EST Pulse 103 05/09/2024 9:12 AM EST Temperature 36.6 C (97.9 F) 05/09/2024 9:12 AM EST Respiratory Rate 18 05/09/2024 9:12 AM EST Oxygen Saturation 99% 05/09/2024 9:12 AM EST Inhaled Oxygen Concentration - - Weight 100.7 kg (222 lb) 05/09/2024 9:12 AM EST Height 154.9 cm (5' 1 ) 05/09/2024 9:12 AM EST Body Mass Index 41.95 05/09/2024 9:12 AM EST Plan of Treatment Health Maintenance Due Date Last Done Comments TSH LEVEL 2001 DEPRESSION SCREENING 2013 SMOKING Hx and SMOKELESS TOBACCO SCREENING 2014 HPV VACCINES (1 - 3-dose series) 2016 CHLAMYDIA SCREENING 2017 MENINGOCOCCAL VACCINES (B) ( 1 of 2 - Standard) 2017 HEPATITIS C SCREENING 09/24/2019 HIV ONE-TIME SCREENING (18-6 5 YEARS) 09/24/2019 PNEUMOCOCCAL VACCINES (0-49 years) (1 of 2 - PCV) 2020 DIABETIC EYE EXAM 10/10/2021 URINE MICROALBUMIN/CREATININ E RATIO 10/10/2021 PAP SMEAR 2022 BLOOD PRESSURE 03/21/2024 09/19/2023 HEMOGLOBIN A1C 05/04/2024 11/02/2023, 07/20/2023 INFLUENZA VACCINE (#1) 2024 02/24/2017 COVID-19 VACCINE ( - 2024-2 6 season) 2024 Adult Td,Tdap Booster 11/01/2033 11/02/2023 , 08/20/2013 MENINGOCOCCAL VACCINES (ACWY) Completed , 08/20/2013 HEPATITIS A VACCINES Aged Out No long er eligible based on patient's age to complete this topic HIB VACCINES Aged Out No longer eligi ble based on patient's age to complete this topic Medical Devices Not on file Insurance [employer] [place] [employer] [place] A[employer] [facility] [place] [address] [address] [facility] [place] [address] [employer] [place] [address] [address] [place] [address] [place] [address] [employer] Advance Directives For more information, please contact: [phone] (9AM - 5PM [place], Tuesday-Tuesday) * Full Code (Latest Code Status on File) Date Activated Date Inactivated Comments 10/10/2021 4:23 AM Question Answer Comments Code Status Confirmed With: Patient Care Teams Upholstery Handler Relationship Specialty Start Date End Date Naima Carr MD [address] [place] [address] PCP - General Internal Medicine 12/02/22 Additional Source Comments The information contained in this document represents components of the legal health record. It is not the complete legal health record.[facility]
--- OUTSIDE RECORDS SUMMARY | 2025-02-23 23:32 | XMS_ITS | Data Portability ---
Author Organization [place] - [facility], Allergy Address [address] [place] [id number] Care Team Providers Care Perishable Freight Inspector Name Role Phone OVI SANTIZO Primary Care Provider OVI SANTIZO Referring Provider [phone] Assessment Encounter Date Assessment Date Assessment LastModified [...] to baseline. [email or web address] Not available 04/24/2024 16:14:24 06/27/2024 06/27/2024 23yo female with history of migraine presents for evaluation of the ears. She reports left-sided middle ear infection a couple weeks ago, resolved with oral amoxicillin. TMs are normal to inspection with adequate mobility. Audiometric testing on 04/24/24 demonstrated mildly asymmetric hearing and left ETD. Patient defers audiometric testing today. MRI of the IACs on 04/30/24 was negative for retrocochlear pathology. Patient is scheduled to return in 2 months for reevaluation of hearing asymmetry and left eustachian tube dysfunction. She will continue intranasal fluticasone as tolerated. Patient plans to follow up with neurology for further evaluation of her non-vertiginous dizziness and suspected migraine. [email or web address] Not available 06/27/2024 16:01:11 Plan of Treatment Reminders Order Date Submit Date Provider Last Modified By Organization Details Last Modified Time Details Appointments None recorded. Lab borrelia burgdorferi IgG + IgM + total panel, IA, serum 2024 025 DANEVANG [facility] (Centralized Electronic Ordering - All Locations), Patient Can Go To The Location Of Their Choice, [id number] 11:16:51 Referral None recorded. Procedures None recorded. Surgeries None recorded. Imaging MRI, brain + internal auditory canal, w/wo contrast - MRI, BRAIN + INTERNAL AUDITORY CANAL, W/WO CONTRAST 2024 025 [facility] ([facility]), [address] [place] [address], [address], 14:31:10 Medication Orders Flonase Allergy Relief 50 mcg/actuati on nasal spray,suspe nsion 2024 025 DANEVANG [id number], [address] [facility], [place], [address], 14:35:45 Patient TargetsNo targets recorded. Patient InstructionsNo instructions recorded. Reason for Referral None Reported. Results Created Date Observation Date Name Description Value Unit Range Abnormal Flag Note LastModifiedBy Organization Detail LastModifiedTime 04/24/1904/25/2024 LYME DISEA SE SEROL OGY W/REF MORTEZA [...] is recom cecil d. Not Available [facility] ([facility]) [address] [facility], [place], [address], 04/25/2024 11:16:51 04/24/19 25 audio gram No observ ation record ed. BARCODE Not Available 2024 15:18:28 05/03/19 25 04/30/2024 MRI, brain + inter nal audit ory canal , w/wo contr ast No observ ation record ed. [email or web address] [facility] [address], [address], 05/15/2024 11:52:37 Result Notes None recorded. 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 Procedures Surgical History Date Name Laterality Status Provider Name and Address Organization Details Recorded Time 04/24/2024 Comp Audio with Tymps - 05468 & 26736 completed Aretha Tiwari [place] - [facility] 04/24/2024 14:03:30 Imaging Results None recorded. Procedure Notes None recorded. Medical Equipment None Reported. Medications Name Sig Start Date Stop Date Status Note LastModified by Organization Details LastModified Time atorvastatin 40 mg tablet active Not Available Not Available Not Available atorvastatin 80 mg tablet active Not Available Not Available Not Available doxycycline hyclate 100 mg capsule PLEASE SEE ATTACHED FOR DETAILED DIRECTIONS active Not Available Not Available N ot Available atorvastatin 20 mg tablet active Not [...] active Not Available Not Available Not Available meclizine 25 mg tablet active Not Available Not Available No t Available insulin aspart U-100 100 unit/mL subcutaneous solution active Not Available Not Available Not Available levothyroxin e 125 mcg tablet TAKE 1 & 1/2 TABLETS BY MOUTH ONCE DAILY active Not Available Not Available N ot Available insulin lispro (U-100) 100 unit/mL subcutaneous solution INJECT UP TO A MAX DAILY DOSE OF 150 UNITS SUBCUTANEOU SLY FOR TYPE 1 DIABETES active Not Available Not Available No t [...] SPRAYS INTO EACH NOSTRIL IN THE MORNING 2024 active Not Available Not Available Not Avai lable Ketostix strips USE TWICE DAILY IF GLUCOSE [...] Not Available Not Available No t Available Humalog KwikPen U-200 Insulin 200 unit/mL (3 mL) subcutaneous INJECT SUBCUTANEOU SLY DIRECTED MAX DAILY DOSE 150 UNITS/DAY active Not Available Not Available No t [...] Available Not Available No t Available Vitals Date Recorded Body height Body mass index (BMI) Body weight Provider Name and Address Organization Details Last Updated DateTime 06/27/2024 154.94 cm 41.6 kg/m2 03269.32 g [facility] 06/27/2024 13:27:15 Social History None recorded. Functional Status None recorded. Mental Status None recorded. Family History Nothing Reported. Medical History Condition Response Arthritis Y Thyroid Problems Y Asthma Y Gynecological HistoryNo gynecological history recorded. Obstetrics History GPAL:G 0 P 0 0 0 0 Past Encounters Encounter ID Performer Location Encounter Start Date Encounter Closed Date Diagnosis/Indication Diagnosis SNOMED-CT Code Diagnosis ICD10 Code Diagnosis IMO Codes Diagnosis Note [id number] DEANA BRUCE PA-C [facility] [address] [phone] 04/24/2024 13:24:47 04/24/2024 14:40:06 Abnormal auditory perception 81841931 H93.299 Audiologic al evaluation results:Ri ght ear:Normal hearing with excellent word recognitio n.Left ear:Normal hearing with excellent word recognitio n.Asymmetr ic SNHL from 500-2K Hz, worse in the right. Tympanomet ry:Right Ear:Type ALeft Ear:Type C Disorder o f left Eustachian tube 2895513209 328445 H69.92 Facial palsy 124439852 G 51.0 [id number] TRACY YUSUF PA-C [facility] [address] [address] 06/27/2024 13:14:40 06/27/2024 13:49:28 Abnormal auditory perception 00107958 H93.299 Dizziness and giddiness 218168805 R42 Disorder o f left Eustachian tube 2002121615 033647 H69.92 Migraine 07198751 G43.90 9 Health Concerns Section Related Observation LastModified by Organization Detai ls LastModified Time None Recorded Concern Status LastModified by Organization Details LastModified Time None Recorded Advance Directives Directive None Recorded Payers Insurance Date Sequence Insurance Name Policy Number Policy Paulino Covered Member ID Paulino Member ID Guarantor Name 08/05/2024 1 [employer] - [facility] (MEDICAID REPLACEMENT - HMO) ANAHI Maxx Mina [id number] [employer] Mina Notes Date Note Type Note Provider Name and Address Organization Details Recorded Time 04/24/2024 text/html ROS as noted in the HPI 23 year old female presents for evaluation [...] same day/time as imbalance or hearing fluctuations. Deana cordero [place] - [facility] 04/24/2024 16:14:36 06/27/2024 text/html ROS as noted in the HPI 23yo female with history of migraine presents for evaluation of the ears. She reports left-sided middle ear infection a couple weeks ago, since resolved with oral amoxicillin. Patient reports persistent aural fullness since. Today she denies ear pain, drainage, or dez hearing loss. She has occasional non-vertiginous dizziness. Audio 2 months ago demonstrated mildly asymmetric right-sided hearing loss. MRI of the IACs was negative for retrocochlear pathology. JIMENA WHITE MD [address] [place] [address], [place], [address], [facility] - [facility] 06/27/2024 17:08:06 OBGyn Episode No OBEpisode recorded.
--- OUTSIDE RECORDS SUMMARY | 2025-02-23 23:32 | XMS_ITS | Encounter Summary ---
Author Organization [facility] Address [address] [place] [address] [place] [address] Phone Care Team Providers Care Veterinary Technician Instructor Name Role Phone Ibrahima Hill MD Primary Care Provider [phone] Naima Carr MD Primary Care Prov ider Encounter Details Date Type Department Care Team (Late st Contact Info) Description 10/09/2021 Procedure Pass [facility], Ct Scan - [address] [id number] Social History Tobacco Use Types Packs/Day Years [...] documented as of this encounter Care Teams Veterinary Technician Instructor Relationship Specialty Start Date End Date Ibrahima Hill MD [address] [place] [address] PCP - General 10/09/21 12/01/22 Naima Carr MD [address] [place] [address] PCP - General Internal Medicine 12/02/22 documented as of this encounter Additional Source Comments The information contained in this document represents components of the legal health record. It is not the complete legal health record.[facility]
--- OUTSIDE RECORDS SUMMARY | 2025-02-23 23:32 | XMS_ITS | Encounter Summary ---
Author Organization [facility] Address [address] [place] [address] Phone Care Team Providers Care Director Dance Name Role Phone Naima Carr MD Primary Care Prov ider Encounter Details Date Type Department Care Team (Late st Contact Info) Description 09/11/2023 Procedure Pass [place] Admitting Dept - Virtual Department [address] [place] [address] Social History Tobacco Use Types Packs/Day Years [...] on filedocumented in this encounter Care Teams Director Dance Relationship Specialty Start Date End Date Naima Carr MD [address] [place] [id number] PCP - General Internal Medicine 12/02/22 documented as of this encounter Additional Source Comments The information contained in this document represents components of the legal health record. It is not the complete legal health record.[facility]
--- NOTE | 2025-02-23 23:34 | ED.GENADULT ---
HPI - General Adult General Chief complaint: General Medical Stated complaint: Heavy period Time Seen by Provider: 02/23/25 23:17 History of Present Illness HPI narrative: Patient is a 24-year-old female reported soaking 2 pads in the last hour. Positive clots. In the last 24 hours patient had 6 pads. History of polycystic ovary. Minimal abdominal cramping. No fever no chills. No nausea no vomiting. Patient is from home. No change in bowel movement. No dizziness. Has not OBGYN at [facility]. No other vaginal discharge noted. timing is proximally correct. Related Data Home Medications ?Medication ?Instructions ?Recorded ?Confirmed atorvastatin 40 mg tablet mg PO DAILY 02/14/25 cholecalciferol (vitamin D3) 25 PO DAILY 02/14/25 mcg (1,000 unit) capsule (Vitamin D3) fluticasone propionate 50 2 spray intranasal QAM 02/14/25 mcg/actuation nasal spray,suspension insulin aspart U-100 100 unit/mL subcut 02/14/25 subcutaneous solution insulin glargine-yfgn 100 unit/mL unit subcut 02/14/25 (3 mL) subcutaneous pen levothyroxine 88 mcg tablet mcg PO DAILY 02/14/25 Allergies Allergy/AdvReac Type Severity Reaction Status Date / Time gluten (GLUTEN) Allergy Unknown UNKNOWN Verified 02/23/25 22:11 morphine Allergy Unknown Hives Verified 02/23/25 22:11 sulfamethoxazole (From Allergy Unknown Hives Verified 02/23/25 22:11 BACTRIM) trimethoprim (From BACTRIM) Allergy Unknown Hives Verified 02/23/25 22:11 Review of Systems Review of Systems: Positive heavy Menstruation PMFSH Past Medical History Attestation statement: The following information was validated with the patient. Surgical History Hx of wisdom tooth extraction Hx of appendectomy History of endoscopy Family History Family History Mother Hypertension Father Diabetes Maternal Grandmother Arthritis Asthma Diabetes Maternal Grandfather Arthritis Hypertension Social History Social History Alcohol intake: never Patient Tobacco Use Status: Never used Tobacco Advance Directives: No Advance Directives Information Provided: Yes Do you have a plan to hurt others: No Plan Physical Exam ED Exam Exam: Appearance: Alert. Oriented X3. No acute distress. Eyes: Pupils equal, round and reactive to light. ENT: Pharynx normal. Neck: Normal inspection. Neck supple. No lymph nodes noted. No crepitus CVS: Normal heart rate and rhythm. Pulses normal. Normal S1 and S2 Respiratory: No respiratory distress. Breath sounds normal. No Wheezing. No rales Abdomen: Soft and nontender. No rigidity. No distention. good BS x4 Skin: Skin warm and dry. Normal skin color. Normal skin turgor. Extremities: No lower extremity edema. Neurovascular intact to all extremities. No Lacerations. No Rash Neuro: Oriented X 3. No motor deficit. No sensory deficit. Moving all extermities. No slurred speech Vital Signs: Vital Signs - 24 hr 02/23/25 22:08 Temperature 97.9 F Pulse Rate 104 H Respiratory Rate 16 Blood Pressure 114/70 Pulse Oximetry 97 Oxygen Delivery Method Room Air BMI result Body Mass Index 42.5 Medical Decision Making Medical Decision Making [facility] Narrative: Patient well-appearing no acute distress. Hemoglobin is 10.7. This is slightly below baseline no 11. Patient in no distress. Abdominal exam is soft nontender. Explained to patient the need for follow-up with OBGYN on an outpatient basis monitored. Currently in stable condition. Differential Diagnosis Differential Diagnoses: The differential diagnosis associated with the presentation includes related issue, heavy menstruation irregular. Admission/Observation Consideration of admission/observation: Escalation of care including admission/observation considered No need for transfusion at this time Lab Data [facility] Lab Attestation statement: I reviewed the patient's lab results. 02/23/25 22:36 02/23/25 22:36 Labs: Lab Results 02/23/25 Range/Units 22:36 WBC 9.3 (4.8-10.8) X10*3/uL RBC 4.55 (4.20-5.50) X10*6/uL Hgb 10.7 L (12.0-16.0) g/dl Hct 34.0 L (37.0-47.0) % MCV 74.7 L (80.0-98.0) fL MCH 23.5 L (27.0-33.0) pg MCHC 31.5 (31.0-35.0) g/dl RDW 17.0 H (11.0-16.0) % Plt Count 342 D (160-400) X10*3/uL MPV 8.7 L (9.4-12.3) fL Immature Gran % (Auto) 0.4 (0.0-0.4) % Neut % (Auto) 66.9 (45-73) % Lymph % (Auto) 22.6 (20-40) % Wood % (Auto) 9.4 (2-11) % Eos % (Auto) 0.5 (0-4) % Baso % (Auto) 0.2 (0-2) % Lymph # (Auto) 2.1 (1.2-4.9) X10*3/uL Wood # (Auto) 0.9 (0.1-1.2) X10*3/uL Eos # (Auto) 0.1 (0.0-0.4) X10*3/uL Baso # (Auto) 0.0 (0.0-0.2) X10*3/uL Abs Immat Gran (auto) 0.04 H (0.00-0.03) X10*3/uL Absolute Neuts (auto) 6.2 (2.0-8.3) x10*3/uL Absolute Nucleated RBC 0.000 (0.0-0.012) X10*3/uL Nucleated RBC % (auto) 0.0 (0.0-0.2) /100WBC Sodium 142 (135-145) mmol/L Potassium 4.0 (3.3-5.1) mmol/L Chloride 110 H (96-108) mmol/L Carbon Dioxide 23 (22-29) mmol/L Anion Gap 13 (12-20) BUN 13 (9-16) mg/dL Creatinine 0.98 (0.5-1.4) mg/dL Estim Creat Clear Calc 97.9 Estimated GFR > 60 Random Glucose 239 H (60-115) mg/dL Calcium 8.8 D (8.4-10.2) mg/dL Total Bilirubin 0.3 (0.0-1.0) mg/dL AST 17 (5-31) U/L ALT 16 (0-31) U/L Alkaline Phosphatase 102 (39-117) U/L Total Protein 7.0 (6.5-8.0) g/dL Albumin 3.9 (3.5-5.0) g/dL Beta HCG, Quant < 2 mIU/mL Social Determinants Patient?s care significantly limited by Social Determinants of Health including: Problems related to primary support group Discharge Plan Discharge Clinical Impression: Heavy menses Patient Disposition: Home, Self-Care Instructions: Menorrhagia (ED) Prescriptions: No Action atorvastatin 40 mg tablet PO DAILY levothyroxine 88 mcg tablet PO DAILY insulin aspart U-100 100 unit/mL solution subcut fluticasone propionate 50 mcg/actuation spray,suspension 2 spray intranasal QAM cholecalciferol (vitamin D3) [Vitamin D3] 25 mcg (1,000 unit) capsule PO DAILY insulin glargine-yfgn 100 unit/mL (3 mL) insulin pen subcut Referrals: Naima Bearden MD [Primary Care Provider, Internal Medicine] - 02/25/25 Print Language: Swedish
[2025-02-24 00:05] VITALS: BP 114/70; PULSE 104; RESP 16; TEMP 36.6; O2SAT 97
--- NOTE | 2025-02-24 00:06 | PC.NURSE ---
pt left before receiving paperwork. MD verbal d/c at bedside then pt left
== END 2025-02-24 00:08 | disposition home or self-care (01) ==
PROVIDERS: Emergency Provider Emergency Medicine Emergency Medical Services; PCP Internal Medicine
DX: N92.0 Excessive and frequent menstruation with regular cycle (principal)
CPT/HCPCS: 36415; 80053; 84702; 85025; 99282; 99283